=== PATIENT | female | born 1970 | race Caucasian/White ===

== ENCOUNTER 2023-01-20 06:30 | Outpatient (REF) | payer BC, SELFPAY ==
[2023-01-20 11:22] LABS: Appearance Urine Clear; Color Urine Yellow; Glucose Urine UA Negative (Negative); Leukocyte Esterase Urine Small (1+) (Negative); MANUAL DIFF FLAG NO; Nitrite Urine Negative (Negative); PH 7.5 (5.0-9.0); UMIC TRIGGER UA YES; Urine Blood Negative (Negative); Urine Ketones Negative (Negative); Urine Protein Negative (Neg-Trace)
[2023-01-20 11:34] LABS: Basophils Percent Auto 0.7 % (0-2); Eosinophils Absolute Auto 0.1 X10*3/uL (0.0-0.4); Eosinophils Percent Auto 2.5 % (0-4); Hematocrit 39.1 % (37.0-47.0); Hemoglobin 12.5 g/dl (12.0-16.0); Imm Gran Abs Auto 0.01 X10*3/uL (0.00-0.03); Imm Gran Pct Auto 0.2 % (0.0-0.4); Lymphocytes Absolute Auto 2.4 X10*3/uL (1.2-4.9); Lymphocytes Percent Auto 54.7 % (20-40); Mean Corpuscular Hemoglobin 28.9 pg (27.0-33.0); Mean Corpuscular Volume 90.3 fL (80.0-98.0); Mean Platelet Volume 10.1 fL (9.4-12.3); Monocytes Absolute Auto 0.4 X10*3/uL (0.1-1.2); Monocytes Percent Auto 8.1 % (2-11); Neutrophils Absolute Auto 1.5 x10*3/uL (2.0-8.3); Neutrophils Percent Auto 33.8 % (45-73); Platelet Count 268 X10*3/uL (160-400); Red Blood Count 4.33 X10*6/uL (4.20-5.50); Red Cell Distribution Width 12.7 % (11.0-16.0); White Blood Count 4.4 X10*3/uL (4.8-10.8)
[2023-01-20 11:36] LABS: Bacteria Urine 1+ (None Seen); Hyaline Casts Urine 0-2 /LPF (0-2); RBC Urine 0-2 /HPF (0-2); WBC Urine 0-5 /HPF (0-5)
[2023-01-20 12:07] LABS: Alanine Aminotransferase 19 U/L (0-31); Albumin Level 3.9 g/dL (3.5-5.0); Alkaline Phosphatase 81 U/L (39-117); Anion Gap 11 (12-20); Aspartate Amino Transferase 23 U/L (5-31); Bilirubin Total 0.5 mg/dL (0.0-1.0); Blood Urea Nitrogen 19 mg/dL (9-16); Calcium 9.2 mg/dL (8.4-10.2); Carbon Dioxide 27 mmol/L (22-29); Chloride 108 mmol/L (96-108); Cholesterol 191 mg/dL; Estimated Glomerular Filt Rate > 60; Glucose Random 94 mg/dL (60-115); HDL Cholesterol 61 mg/dL; LDL Cholesterol Calculated 118 mg/dl; Potassium 4.2 mmol/L (3.3-5.1); Sodium 142 mmol/L (135-145); Total Protein 5.9 g/dL (6.5-8.0); Triglycerides 61 mg/dL
[2023-01-20 12:39] LABS: Folate 14.2 ng/mL (> or = 4.0); Free T4 (Free Thyroxine) 0.99 ng/dL (0.71-1.85); Thyroid Stimulating Hormone 1.83 uIU/mL (0.32-4.0); Vitamin B12 453 pg/mL (200-900); Vitamin D 25-OH Total 34.3 ng/mL (>30)
== END 2023-01-20 06:31 | disposition home or self-care (01) ==
LOC: HO.HMGCLDS 06:30
PROVIDERS: PCP Internal Medicine; Visit Provider Internal Medicine
DX: E66.9 Obesity, unspecified (principal); E78.00 Pure hypercholesterolemia, unspecified; E55.9 Vitamin D deficiency, unspecified
CPT/HCPCS: 36415; 80053; 80061; 81001; 82306; 82607; 82746; 84439; 84443; 85025

== ENCOUNTER → 2023-02-10 08:01 | Outpatient (BNVA) | payer BC, SELFPAY | PROVIDERS: PCP Internal Medicine; Visit Provider Advanced Practice Midwife ==

== ENCOUNTER 2023-02-17 08:28 | Outpatient (REF) | payer BC, SELFPAY ==
--- NOTE | ~2023-02-17 | MM_ITS ---
EXAMINATION: MM SCREENING DIGITAL BREAST TOMOSYNTHESIS, BILATERAL CLINICAL INFORMATION: Screening. Asymptomatic. The lifetime risk of breast cancer based on the Tyrer-Cuzick Model is 16%. COMPARISON: Outside mammography: 08/13/2021, 07/24/2020, 07/19/2019 ([facility]). TECHNIQUE: Digital breast tomosynthesis is performed in both the craniocaudal and mediolateral oblique views along with computer-aided detection (CAD). Synthesized 2D images are generated from the tomosynthesis. FINDINGS: There are scattered areas of fibroglandular density (ACR BI-RADS breast composition Category b). Breast tissue composition borders on predominantly fatty. Background stromal markings are similar to outside studies. No developing density or architectural abnormality. There are no significant masses, abnormal calcifications, or other abnormalities. The axilla and skin contours are unremarkable. MM/MM tomosynthesis screening BI IMPRESSION: No mammographic evidence of malignancy. ASSESSMENT: BI-RADS 1: Negative RECOMMENDATION: Routine annual mammography screening. This patient's information was entered into a reminder system with a target due date for their next mammogram.
== END 2023-02-17 08:29 | disposition home or self-care (01) ==
LOC: HO.MAMMO 08:28
PROVIDERS: PCP Internal Medicine; Visit Provider Internal Medicine
DX: Z12.31 Encounter for screening mammogram for malignant neoplasm of breast (principal)
CPT/HCPCS: 77063; 77067

== ENCOUNTER 2023-08-18 13:26 | Outpatient (AMB) | payer BC, SELFPAY ==
[2023-08-18 13:35] VITALS: BMI 35.2
--- NOTE | 2023-08-18 13:35 | A.OFFVIS_ITS ---
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 Required: No Information Interpreted: non-clinical & clinical Control System Computer Scientist: Control System Computer Scientist Present (Aidyn) Allergies No Known Allergies Allergy (Verified 08/18/23 13:38) Medication List - Last Reconciled 08/18/23 by Ame Salgado CNM [collagen protein PO] estradiol 1 patch transdermal 2XW multivitamin 1 tab PO DAILY progesterone micronized 100 mg PO BEDTIME sod sulf-pot chloride-mag sulf 1.479-0.188- 0.225 gram (Sutab) PO PER PKG DIR Is last menstrual period known: No Post menopausal: Yes Patient : No HPI ?yeast infection HPI Details Patient is here to see if she might have a yeast infection she has had little bit more vaginal irritation and itching and discomfort and burning more on the inside of her vaginal introitus then externally by her description during the exam. She normally does not take medications but she was having symptoms that she researched for herself and in discussion with colleagues and professional friends thought that might be related to hannha menopausal changes in terms of inability to remember and concentrate and so she decided to research this online and went online to a site called [employer], and had online consultations with the nurse practitioner who prescribed her the estradiol patch and progesterone. She thought she was noticing an improvement. [facility] and she has been without it for 2 weeks and feels the symptoms have returned again. She feels like the vaginal symptoms started before she ran out of medication she does not normally get yeast infections. 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 She also feels like she has been urinating frequently and it is only small amounts. She is not having dysuria or per se.. In questioning it appears that there are long periods of time when she has to hold her urine and void in between long procedures at work and that that has become habitual.> On questioning it seems that she may have challenges with complete emptying of her bladder and that some of her symptoms may relate to this. [facility] Family History Mother Lung cancer Father Skin cancer CVA (cerebral vascular accident) Sister No problems noted. Sister No problems noted. Sister Mental health disorder Daughter No problems noted. 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 cervix nulliparous long thick closed uterus more midposition adnexa nontender quivery tone with 1st Kegel improved tone with 2nd. Vaginal mucosa slightly atrophic. External Female Exam: normal external appearance Speculum Exam - Vagina: normal appearance of the vagina and normal vaginal discharge Speculum Exam - Cervix: normal appearance of the cervix Bimanual exam- vagina & uterus: normal bimanual exam, uterine size normal, consistency normal, uterine mobility normal, uterine shape normal and non-tender Bimanual Exam- Adnexa, other: normal adnexae, no masses and No adnexal tenderness Assessment & Plan Assessment & Plan (1) Obesity: Code(s): E66.9 - Obesity, unspecified (2) Vaginal irritation: Code(s): N89.8 - Other specified noninflammatory disorders of vagina (3) Frequency of urination: Code(s): R35.0 - Frequency of micturition (4) Urinary retention with incomplete bladder emptying: Comment: Possible. not diagnosed. Discussed, and offered pelvic floor therapy. She patient decided to work on the Genero's herself for now. Will rule out UTI. Code(s): R33.9 - Retention of urine, unspecified (5) Postmenopausal HRT (hormone replacement therapy): Comment: Patient consulted online with an online prescribing source and has follow-up visits is online with them. Code(s): Z79.890 - Hormone replacement therapy Plan ---Discussed normal changes that happen premenapausally, perimenapausally, and postmenopausally, and ways to handle them. Discussed the normal variation, and the range of experiences that women experience. Discussed nutrition, health, need for exercise, both weight-bearing and aerobic. Also discussed the normal changes that happen with vaginal mucosal thinning and sensitivity, and simple more natural ways of handling these challenges. ------I Had the patient and demonstrate a Kegel contraction at the end of the exam, ordered in order to explain a Kegel exercise, and instructed the patient on doing the same exercises several times a day with increasing strength each time. One useful to is to imagine pursestring around the vagina and pulling it tight and upwards as if raising the vagina, or imagining that her tight muscles are on the 1st floor and she is trying to pull them up to the 5th floor and then slowly letting them go down. To try to do these several times a day but focus on the quality and the strength of the exercises more than the quantity, and tried isolate just those muscles and not involve other body parts. testing done for the usual gonorrhea chlamydia trichomoniasis Gardnerella and Eva. Today nothing is very apparent so I am deferring treatment until we get the test results. --------she declined referral to PT but I did give her a brochure if any issues with incomplete emptying of her bladder worsened over time she would need to discuss it with her primary care provider and a urology referral might ensue. She has intention to work on Kegel's as she really prefers any extreme interventions and medications if at all possible. In particular I recommend that she really work on trying to void with increased frequency while at work and try to make ensure that she is completely emptying her bladder at each time voiding with more frequency may help with that as well. discussed her decision to do her own research and make her best benefit risk decision about choosing to go on HRT that she obtained by online consultations. Reviewed that there are some risks but there are some benefits as well and she is going to make her own decision about when she restarts the medication when she receives it. --------discussed all the other many contributions that could be contributing to symptoms of challenges remembering very many items and a busy work a day world with many inputs. Orders: Orders Urine Culture Today R35.0 - Frequency of micturition Bacterial Vaginosis Panel Today N89.8 - Other specified noninflammatory disorders of vagina CT NG by PCR Today N89.8 - Other specified noninflammatory disorders of vagina Coding Level of Care Code Est Pt Level 3 (16457) Diagnoses Obesity E66.9 Vaginal irritation N89.8 Frequency of urination R35.0 Urinary retention with incomplete bladder emptying R33.9 Postmenopausal HRT (hormone replacement therapy) Z79.890
== END 2023-08-18 14:30 | disposition home or self-care (01) ==
PROVIDERS: PCP Internal Medicine; Visit Provider Advanced Practice Midwife
DX: E66.9 Obesity, unspecified (principal); N89.8 Other specified noninflammatory disorders of vagina; R35.0 Frequency of micturition; R33.9 Retention of urine, unspecified; Z79.890 Hormone replacement therapy
CPT/HCPCS: 99213

== ENCOUNTER 2023-08-18 13:26 | Outpatient (REF) | payer BC, SELFPAY ==
[2023-08-18 18:44] LABS: CT PCR NOT DETECTED (Not Detect.); NG PCR NOT DETECTED (Not Detect.)
[2023-08-20 11:34] LABS: BV Int Neg Control Negative (Negative); BV Int Pos Control Positive (Positive)
== END 2023-08-18 13:27 | disposition home or self-care (01) ==
LOC: HO.LNP 13:26
PROVIDERS: PCP Internal Medicine; Visit Provider Advanced Practice Midwife
DX: N89.8 Other specified noninflammatory disorders of vagina (principal); R35.0 Frequency of micturition; E66.9 Obesity, unspecified; Z79.899 Other long term (current) drug therapy
CPT/HCPCS: 0353U; 87086; 87480; 87510; 87660

== ENCOUNTER 2023-08-25 08:21 | Outpatient (AMB) | payer BC, SELFPAY ==
[2023-08-25 08:33] VITALS: BP 128/70; PULSE 61; O2SAT 99; BMI 33.7
--- NOTE | 2023-08-25 08:33 | MHC.PC.OV ---
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 Last seen in February 2023 for physical exam. Patient's mammograms up-to-date. Review of the notes has seen gynecology for frequency as well as postmenopausal symptoms, Kegel exercises taught and discussion about hormone treatments. Patient also has met with Gastroenterology and will be scheduled for the workup. Has been doing fine patient has ran out of the hormones and not sure how to get them back. Discussed with the patient to talk to gynecology. Discussed with her about small risks of hormones regarding strokes blood clots and heart attacks. Otherwise has scheduled colon test for next year will request for blood work for physical next year. [facility] Medical History (Updated 08/25/23 @ 09:03 by Geo Bain MD) Cervical cancer screening Breast cancer screening Family History Mother Lung cancer Father Skin cancer CVA (cerebral vascular accident) Sister No problems noted. Sister No problems noted. Sister Mental health disorder Daughter No problems noted. 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 Lance Pittman, Celeste Duckworth, Nikko Joyner and colleagues, with an educational daniella from [employer]. Physical exam (Primary Care) Vital Signs: Last Vital Signs Pulse 61 08/25/23 08:33 BP 128/70 08/25/23 08:33 Pulse Ox 99 08/25/23 08:33 Oxygen Delivery Method Room Air 08/25/23 08:33 BMI result Body Mass Index 33.7 Tobacco/Smoking Status: Tobacco use Status Tobacco use date assessed 12/30/22 08/25/23 08:34 Patient Tobacco Use Status Never used Tobacco 08/25/23 08:34 e-Cigarette/Vaping Use Never Used 08/25/23 08:34 Thrive Assessment: Date of Thrive Assessment Date Thrive assessed 12/30/22 08/25/23 08:34 Const General: alert; No acute distress Eyes Conjunctivae: conjunctivae normal Resp Auscultation: clear to auscultation bilaterally Cardio Rate: regular rate Rhythm: regular rhythm GI Inspection: Yes normal to inspection Extrem General: Yes normal to inspection and No edema Assessment and Plan Assessment & Plan (1) Frequency of urination: Code(s): R35.0 - Frequency of micturition Plan: Discussion with the gynecology regarding Kegel exercises (2) Postmenopausal HRT (hormone replacement therapy): Comment: Patient consulted online with an online prescribing source and has follow-up visits is online with them. Code(s): Z79.890 - Hormone replacement therapy Plan: Patient has met with the gynecology for discussion regarding hormone treatments (3) Obesity: Code(s): E66.9 - Obesity, unspecified Plan: Continue with diet and exercise (4) Colon cancer screening: Code(s): Z12.11 - Encounter for screening for malignant neoplasm of colon Plan: Patient has met with gastroenterology and has a schedule next year Orders: Orders Thyroid Stimulating Hormone 6 Months E66.9 - Obesity, unspecified Lipid Panel 6 Months E66.9 - Obesity, unspecified, E78.00 - Pure hypercholesterolemia, unspecified Vitamin D 25-OH Total 6 Months E66.9 - Obesity, unspecified Complete Blood Count Auto Diff 6 Months E66.9 - Obesity, unspecified Comprehensive Met. Panel 6 Months E66.9 - Obesity, unspecified Free T4 (Free Thyroxine) 6 Months E66.9 - Obesity, unspecified Vitamin B12 and Folate 6 Months E66.9 - Obesity, unspecified Coding Level of Care Code Est Pt Level 4 (34127) Diagnoses Frequency of urination R35.0 Postmenopausal HRT (hormone replacement therapy) Z79.890 Obesity E66.9 Colon cancer screening Z12.11
== END 2023-08-25 09:49 | disposition home or self-care (01) ==
PROVIDERS: PCP Internal Medicine; Visit Provider Internal Medicine
DX: R35.0 Frequency of micturition (principal); E66.9 Obesity, unspecified; Z68.33 Body mass index [BMI] 33.0-33.9, adult; Z23 Encounter for immunization; Z79.890 Hormone replacement therapy
CPT/HCPCS: 90471; 90686; 99214

== ENCOUNTER 2023-11-10 07:53 | Day surgery (SDC) | payer BC, SELFPAY ==
--- NOTE | 2023-11-09 11:58 | HO.ANESPROP2 ---
Documented by User: Edda Schrader NP 11/09/23 11:58 HPI - Anesthesia Eval Consult details Narrative: 53yo F for Colonoscopy PMFSH Active Problems Active Problems: All Active Problems (Updated 08/25/23 @ 09:03 by Geo Bain MD) Postmenopausal HRT (hormone replacement therapy) (Acute) Urinary retention with incomplete bladder emptying (Acute) Frequency of urination (Acute) Vaginal irritation (Acute) Family history of polyps in the colon (Acute) Pre-op examination (Acute) ADHD (Acute) Annual physical exam (Acute) Colon cancer screening (Acute) Obesity (Acute) Past Medical History Medical History (Updated 08/25/23 @ 09:03 by Geo Bain MD) Cervical cancer screening Breast cancer screening Family History Family History Mother Lung cancer Father Skin cancer CVA (cerebral vascular accident) Sister No problems noted. Sister No problems noted. Sister Mental health disorder Daughter No problems noted. Maternal Aunt Breast cancer Paternal Aunt Breast cancer Surgical History Surgical History (Updated 11/10/23 @ 09:41 by Zoe Rivers RN) Hx of colonoscopy Social History Social History Household Members: Spouse Housing: House Alcohol intake: current Alcohol intake frequency: holidays/special occasions only Patient Tobacco Use Status: Never used Tobacco e-Cigarette/Vaping Use: Never Used Second Hand Smoke Exposure: No Use of substances other than those prescribed or required for medical reasons: No Are you DNR?: No Advance Directives: No Advance Directives Information Provided: Yes Current occupational status: employed 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 Sexual orientation: Straight/Heterosexual Gender identity: Female Cognitive needs: No Hearing needs: No Vision needs: Yes Meds Allergies Allergy/AdvReac Type Severity Reaction Status Date / Time No Known Allergies Allergy Verified 11/10/23 09:37 Home Medications Medication Instructions Recorded Confirmed Last Taken Type collagen protein PO 12/30/22 08/18/23 Unknown History multivitamin 1 tab PO DAILY 12/30/22 11/10/23 Unknown History estradiol 0.0375 mg/24 hr 1 patch transdermal 2XW 11/10/23 11/10/23 Unknown History semiweekly transdermal patch progesterone micronized 100 mg 100 mg PO BEDTIME 11/10/23 11/10/23 Unknown History capsule Assessment and Plan Assessment Anesthesia Assessment: Chart Reviewed Documented by User: Akila Nguyễn MD 11/10/23 09:45 [facility] Past Medical History Medical History (Updated 08/25/23 @ 09:03 by Geo Bain MD) Cervical cancer screening Breast cancer screening Family History Family History Mother Lung cancer Father Skin cancer CVA (cerebral vascular accident) Sister No problems noted. Sister No problems noted. Sister Mental health disorder Daughter No problems noted. Maternal Aunt Breast cancer Paternal Aunt Breast cancer Family history of problems with anesthesia: No Surgical History Surgical History (Updated 11/10/23 @ 09:41 by Zoe Rivers RN) Hx of colonoscopy History of Problems with Anesthesia: No Social History Social History Household Members: Spouse Housing: House Alcohol intake: current Alcohol intake frequency: holidays/special occasions only Patient Tobacco Use Status: Never used Tobacco e-Cigarette/Vaping Use: Never Used Second Hand Smoke Exposure: No Use of substances other than those prescribed or required for medical reasons: No Are you DNR?: No Advance Directives: No Advance Directives Information Provided: Yes Current occupational status: employed 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 Sexual orientation: Straight/Heterosexual Gender identity: Female Cognitive needs: No Hearing needs: No Vision needs: Yes Meds Allergies Allergy/AdvReac Type Severity Reaction Status Date / Time No Known Allergies Allergy Verified 11/10/23 09:37 Home Medications Medication Instructions Recorded Confirmed Last Taken Type collagen protein PO 12/30/22 08/18/23 Unknown History multivitamin 1 tab PO DAILY 12/30/22 11/10/23 Unknown History estradiol 0.0375 mg/24 hr 1 patch transdermal 2XW 11/10/23 11/10/23 Unknown History semiweekly transdermal patch progesterone micronized 100 mg 100 mg PO BEDTIME 11/10/23 11/10/23 Unknown History capsule Exam Airway Mallampati Class: II (cap top left) TM Dist: >3cm Neck ROM: Full Heart: rrr Lungs: cta Assessment and Plan Assessment Anesthesia Assessment: Anesthesia Plan Discussed Final Anesthetic Review Family History of Problems with Anesthesia: No History of Problems with Anesthesia: No NPO: Yes ASA Class: II Final Preanesthetic Review: No Changes in Pt Med Stat, Meds/Allgs Chart Reviewed and Consent Obtained/Reviewed Patient Risk: Intermediate Procedure Risk: Intermediate Anesthetic Plan Anesthetic Plan: MAC: Disposition: Standard PACU
--- NOTE | 2023-11-10 08:41 | P.OP_ITS ---
Operative Note Operative Note Date of Service: 11/10/23 Narrative: COLONOSCOPY TILL CECUM WITH BIOPSIES Pre-op diagnosis: Colon cancer screening, family history of colon polyps. Post-op diagnosis:? Colon polyp, diverticulosis, hemorrhoids Endoscopist:? Ira Calhoun MD Anesthesia:?MAC Consent: Indications for the procedure and potential complications of bleeding, perforation, reaction to medications and missed diagnosis were discussed with the patient and informed consent was obtained. Instrument: Olympus PCF H 190 L variable stiffness pediatric colonoscope Monitoring: Vital signs and clinical assessment, intermittent blood pressure monitoring, continuous EKG monitoring, Pulse oximetry and Carbon Dioxide monitoring were done throughout the procedure. Please see anesthesia flowsheet. Colon withdrawl time was 18 minutes. Procedure: The patient was placed in the left lateral decubitis position and pre-procedure medications were administered. After a digital rectal examination of the ano-rectum, the video colonoscope was inserted into the rectum and advanced through the colon to the cecum. The colonoscope was slowly withdrawn in a retrograde panoramic fashion and the colon mucosa was carefully examined including a retroflexed view of the rectum. Findings and interventions are described below. Procedure Difficulty: Without difficulty Findings: Terminal Ileum: Not evaluated Cecum: Normal Ascending Colon: A 2-3 mm sessile polyp in the proximal AC - removed with a cold biopsy Transverse Colon: Normal Descending Colon: Normal Sigmoid Colon: Moderate diverticulosis Rectum: Normal Ano-rectum: Moderate internal hemorrhoids Colon preparation: Excellent after some irrigation [place] Bowel Preparation Scale Right colon; 3 Transverse colon: 3 Left colon; 3 (0 = Unprepared colon segment with mucosa not seen due to solid stool that cannot be cleared. 1 = Portion of mucosa of the colon segment seen, but other areas of the colon segment not well seen due to staining, residual stool and/or opaque liquid. 2 = Minor amount of residual staining, small fragments of stool and/or opaque liquid, but mucosa of colon segment seen well. 3 = Entire mucosa of colon segment seen well with no residual staining, small fragments of stool or opaque liquid) Impression and Post Procedure Diagnosis: Colonoscopy Findings: One tiny polyp removed Moderate diverticulosis seen in the sigmoid colon Moderate hemorrhoids on retroflexed exam. Plan: I will send a letter with pathology results. Pt has a FU appointment on 11/24/23 with Joslyn Winn NP Repeat Colonoscopy interval based on path results - in 5 years if polyps are adenomatous and due to family hx of colon polyps (Mom and a sister in their 50's). Above findings were reviewed with the patient and colon polyps and diverticulosis handouts were given in the discharge area.
--- NOTE | 2023-11-10 08:41 | MHC.SHP ---
Pre-Procedural Eval Section A - 24 Hr Update-Section A only Date of Service: 11/10/23 The patient is an INPATIENT: No The patient has been examined within 24 hours of the surgical procedure. The History & Physical has been completed within 30 days and I have reviewed it.: No Section B - Complete if H&P > 30 days Chief Complaint: Family history of colon polyps Relevant Family History (Specify if Yes): Yes Relevant Social History: None Present Medications: see Short Stay Collaborative assessment Medical History: Significant History (ADHD) History of Previous Operations: Relevant previous surgery/procedure and date(s) (Hx of colonoscopy) Allergies: Allergies Allergy/AdvReac Type Severity Reaction Status Date / Time No Known Allergies Allergy Verified 08/25/23 08:34 Review of Systems Sugical H&P ROS: Negative: Constitution, Cardiovascular, Respiratory and Gastrointestinal Exam Surgical H&P Exam: Normal: Heart, Normal: Lungs, Normal: Extremities and Normal: Abdomen Plan Diagnosis/Plan: Unchanged I have reviewed the history and physical and performed a pertinent physical examination on my patient. No changes have occurred unless specified. Time Spent With Patient Time: Total time managing care of this patient today ____ minutes.
[2023-11-10 09:14] VITALS: BMI 33.9
[2023-11-10 09:15] VITALS: BP 131/66; PULSE 62; RESP 16; TEMP 37; O2SAT 100
[2023-11-10] MEDS: Lactated Ringers 1,000 ML 100 ML IVCONT (09:32)
[2023-11-10 10:24] VITALS: BP 99/56; PULSE 80; RESP 16; TEMP 36.1; O2SAT 99
[2023-11-10 10:39] VITALS: BP 108/64; PULSE 72; RESP 16; TEMP 36.1; O2SAT 100
== END 2023-11-10 10:55 | disposition home or self-care (01) ==
PROVIDERS: PCP Internal Medicine; Visit Provider Internal Medicine Gastroenterology
PROC: 0DJD8ZZ Inspection of Lower Intestinal Tract, Via Natural or Artificial Opening Endoscopic (ICD-10-PCS; CPT 45378; principal; 2023-11-10 09:30)
DX: Z12.11 Encounter for screening for malignant neoplasm of colon (principal); D12.2 Benign neoplasm of ascending colon; K57.30 Diverticulosis of large intestine without perforation or abscess without bleeding; K64.0 First degree hemorrhoids; Z83.719 Family history of colon polyps, unspecified
CPT/HCPCS: 45380; 88305; J2704

== ENCOUNTER → 2023-11-10 07:53 | Outpatient (BNV) | payer BC, SELFPAY | PROVIDERS: PCP Internal Medicine; Visit Provider Internal Medicine Gastroenterology | DX: Z12.11 Encounter for screening for malignant neoplasm of colon (principal); Z83.719 Family history of colon polyps, unspecified; K63.5 Polyp of colon; K57.30 Diverticulosis of large intestine without perforation or abscess without bleeding | CPT/HCPCS: 45380 ==

== ENCOUNTER 2023-11-24 08:34 | Outpatient (AMB) | payer BC, SELFPAY ==
--- NOTE | 2023-11-24 08:34 | A.OFFVIS_ITS ---
Intake Vital Signs 11/24/23 08:39 Height 5 ft 6 in Weight 212 lb 1.355 oz BMI 34.2 BP 127/64 Blood Pressure Location Rt brachial Position Sitting Pulse 75 Intake Visit Reasons: s/P [place]; Dr. Calhoun Intake Note: Patient in office follow up s/p Colonoscopy. CC: Patient underwent colonoscopy on 11/10/[address] Calhoun. Patient continues to have constipation but she states that she's always had this problem. Wearing Apparel Shaker Required: No Accompanied by: Self / Same As Patient Allergies No Known Allergies Allergy (Verified 11/24/23 08:50) HPI s/P [place]; Dr. Calhoun HPI Details Assessment & Plan (1) Pre-op examination: Code(s): Z01.818 - Encounter for other preprocedural examination Plan: This will be her second colonoscopy, she had one at age 44 at [facility] and she was to have a 5 year repeat. Her mother has colon polyps. She suffers CIC but does not want to take medicines, she has a smoothy every am with zofia and flax seeds, veggies and fruit but only moves her bowels about twice a week. She exercises regularly working out on the treadmill every am. She is unsure if she feel bloated, but she also has gained 30 lbs in the past year of so. There are no prior problems with anesthesia or sedation. She denies any cardiac or respiratory problems. No ID problems. Her mother had colon polyps and one sister. (2) Family history of polyps in the colo n: Code(s): Z83.71 - Family history of colonic polyps Medications: New sod sulf-pot chlor rita-mag sulf 1.479 -0.188- 0.225 gram (Sutab) PO PER PKG DIR 24 tabs 0RF COLONOSCOPY 11/10/23 Findings: Terminal Ileum: Not evaluated Cecum: Normal Ascending Colon: A 2-3 mm sessile polyp in the proximal AC - removed with a cold biopsy Transverse Colon: Normal Descending Colon: Normal Sigmoid Colon: Moderate diverticulosis Rectum: Normal Ano-rectum: Moderate internal hemorrhoids Impression and Post Procedure Diagnosis: Colonoscopy Findings: One tiny polyp removed Moderate diverticulosis seen in the sigmoid colon Moderate hemorrhoids on retroflexed exam. Plan: I will send a letter with pathology results. Pt has a FU appointment on 11/24/23 with Joslyn Winn NP Repeat Colonoscopy interval based on path results - in 5 years if polyps are adenomatous and due to family hx of colon polyps (Mom and a sister in their 50's). BIOPSY Received: 11/10/23 Diagnosis Colon, ascending, polypectomy: Sessile serrated lesion/polyp; negative for cytologic dysplasia; multiple additional levels examined. CORRESPONDENCE On 11/08/23 @ 12:34 Carmel De Jseus Wrote To Joslyn Winn Just DORINDA, after reviewing sutab and hearing about this prep , she would like an alternative- peg/ dulcolax ordered and reviewed. TODAY'S VISIT She is agreeble to a 5 year recall. The procedure was well tolerated. The results were explained and the patient is agreeable to the follow-up interval as stated. The bowel pattern has returned to normal. Education was provided to tell any 1st degree relatives about their findings to be sure that they are screened by age 45. Educated that they will be put on a recall list when it is time for their repeat scope but should they move out of state or away from the hospital they will need to remember along with their primary to repeat the procedure in a timely fashion to avoid any adverse complications. [facility] Medical History Cervical cancer screening Breast cancer screening Surgical History Hx of colonoscopy Family History Mother Lung cancer Father Skin cancer CVA (cerebral vascular accident) Sister No problems noted. Sister No problems noted. Sister Mental health disorder Daughter No problems noted. 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 Sexual orientation: Straight/Heterosexual Gender identity: Female Cognitive needs: No Hearing needs: No Vision needs: Yes Female Reproductive History Menstrual Age of Menarche: 12 Review of Systems Const Denies fatigue, Denies fever(s), Denies night sweats, Denies poor appetite and Denies weight loss ENT Reports Normal hearing present, Denies dental pain, Denies dysphagia, Denies hearing loss, Denies mouth pain, Denies odynophagia, Denies throat swelling, Denies tongue swelling and Reports other (Dentition adequate) Card Reports no additional complaints Resp Reports no additional complaints GI Details: Denies abdominal pain, Denies melena, Denies bloating, Denies hematochezia, Denies constipation, Denies GI cramping, Denies dysphagia, Denies excessive flatus, Denies early satiety, Denies heartburn, Denies diarrhea, Denies nausea, Denies odynophagia, Denies vomiting and Denies hematemesis Skin/Breast Denies pruritus, Denies lesions, Denies rash and Denies jaundice Neuro Reports Normal hearing present and Denies Abnormal speech present Endo Denies fatigue Aller/Immun Denies throat swelling and Denies tongue swelling Physical Exam Vital Signs: Last Vital Signs Pulse 75 11/24/23 08:39 BP 127/64 11/24/23 08:39 BMI result Body Mass Index 34.2 Const General: cooperative, no acute distress, well developed and well groomed Nutritional Appearance: well nourished and obese Orientation/consciousness: oriented to person, oriented to place and oriented to time Limitations: No language barrier HEENT Head: Yes normocephalic and Yes atraumatic Eyes General: appearance normal, both eyes and all related structures Pupils: Equal, round and reactive pupils present Neck Neck: Yes normal visual inspection and Yes no lymphadenopathy Thyroid: Thyroid normal Resp Effort & Inspection: normal respiratory effort and able to speak in complete sen tences Auscultation: clear to auscultation bilaterally Cardio Rate: regular rate Rhythm: regular rhythm Heart sounds: Normal, physiologic split S2 sound present Peripheral pulses: radial pulses present and posterior tibial pulses present GI Inspection: No distended, No Abdominal panniculus present and Yes obesity Palpation (GI): Soft to palpation, nontender, no guarding, not rigid and No hepatosplenomegaly present Percussion: Yes normal to percussion Auscultation: normal bowel sounds Rectal Exam - Female: deferred Skin General skin exam: no rashes or lesions noted, turgor normal, skin not dry, no jaundice, No spider nevi and no striae Rashes: no rashes Nails: normal Neuro General: oriented to person, oriented to place and oriented to time Cranial nerves: Yes Equal, round and reactive pupils present and Yes Normal hearing present Speech: No Abnormal speech present Extrem General: Yes normal to inspection, No clubbing, No cyanosis and No edema Psych Appearance: grossly normal and well kempt Mental Status: mental status grossly normal Speech and movement: Normal speech and movement present Affect: normal affect Attitude: cooperative Thought process: Normal thought process present and not confabulating Thought content: Normal thought content present Insight: Fair insight present (Psych) Judgement: Fair judgement present (Psych) Assessment & Plan Assessment & Plan (1) Sessile serrated polyp of colon: Comment: 11/2023 SCOPE REPEAT 5 YEARS Code(s): D12.6 - Benign neoplasm of colon, unspecified Plan She is agreeble to a 5 year recall. The procedure was well tolerated. The results were explained and the patient is agreeable to the follow-up interval as stated. The bowel pattern has returned to normal. Education was provided to tell any 1st degree relatives about their findings to be sure that they are screened by age 45. Educated that they will be put on a recall list when it is time for their repeat scope but should they move out of state or away from the hospital they will need to remember along with their primary to repeat the procedure in a timely fashion to avoid any adverse complications. Coding Level of Care Code Est Pt Level 3 (08033) Diagnoses Sessile serrated polyp of colon D12.6
[2023-11-24 08:39] VITALS: BP 127/64; PULSE 75; BMI 34.2
== END 2023-11-24 09:15 | disposition home or self-care (01) ==
PROVIDERS: PCP Internal Medicine; Visit Provider Nurse Practitioner
DX: D12.6 Benign neoplasm of colon, unspecified (principal)
CPT/HCPCS: 99213

== ENCOUNTER → 2023-11-24 08:34 | Outpatient (BNVA) | payer BC, SELFPAY | PROVIDERS: PCP Internal Medicine; Visit Provider Nurse Practitioner ==

== ENCOUNTER 2023-12-11 10:12 | Outpatient (AMB) | payer BC, SELFPAY ==
[2023-12-11 10:14] VITALS: BP 126/68; PULSE 74; O2SAT 97; BMI 34.2
--- NOTE | 2023-12-11 10:14 | MHC.PC.OV ---
Vital Signs 12/11/23 10:14 Height 5 ft 6 in Weight 212 lb 0.4 oz BMI 34.2 BP 126/68 Blood Pressure Location Lt brachial Position Sitting Pulse 74 Pulse Source Pulse Oximeter Pulse Oximetry (%) 97 Oxygen Delivery Method Room Air Intake Visit Reasons: Shoulder Pain Intake Note: pt states shoulder and neck pain for several weeks with no relief. Patient Care Associate Required: No Allergies No Known Allergies Allergy (Verified 12/11/23 10:14) Tobacco use date assessed: 12/11/23 Dental Screening Dental Screen Date: 08/25/23 HPI Shoulder Pain HPI Details 53-year-old obese female with a history of frequency coming in for an acute problem. August 2023 last seen. colonoscopy done November 2023. Repeat in 5 years. 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 Sister No problems noted. Sister Mental health disorder Daughter No problems noted. 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 How often do you have a drink containing alcohol?: Monthly or less 2. How many drinks containing alcohol do you have on a typical day when you are drinking?: 1 or 2 3. How often do you have six or more drinks on one occasion?: Never Total Score: 1 JEANETTE-7 AMB Questionnaire JEANETTE-7 Date JEANETTE - 7 assessed: 12/11/23 Source: Developed by Drs. Lance Pittman, Celeste Duckworth, Nikko Joyner and colleagues, with an educational daniella from [employer]. Physical exam (Primary Care) Vital Signs: Last Vital Signs Pulse 74 12/11/23 10:14 BP 126/68 12/11/23 10:14 Pulse Ox 97 12/11/23 10:14 Oxygen Delivery Method Room Air 12/11/23 10:14 BMI result Body Mass Index 34.2 Tobacco/Smoking Status: Tobacco use Status Tobacco use date assessed 12/11/23 12/11/23 10:18 Patient Tobacco Use Status Never used Tobacco 12/11/23 10:18 e-Cigarette/Vaping Use Never Used 12/11/23 10:18 Thrive Assessment: Date of Thrive Assessment Date Thrive assessed 12/30/22 12/11/23 10:18 Const General: alert; No acute distress Eyes Conjunctivae: conjunctivae normal Resp Auscultation: clear to auscultation bilaterally Cardio Rate: regular rate Rhythm: regular rhythm GI Inspection: Yes normal to inspection Extrem Other: Elevation of left arm to 90 degrees causes pain and anterior shoulder area. No swelling no redness and also pain on the trapezius left side on turning the head to the right General: No edema Assessment and Plan Assessment & Plan (1) Shoulder pain, left: Code(s): M25.512 - Pain in left shoulder Orders: Orders PT Evaluation and Treatment Today M25.512 - Pain in left shoulder Referrals Orthopedics Referral M25.512 - Pain in left shoulder Medications: New cyclobenzaprine 5 mg PO TID PRN 20 tabs 0RF muscle spasm M25.512 - Pain in left shoulder Coding Level of Care Code Est Pt Level 3 (70165) Diagnoses Shoulder pain, left M25.512
== END 2023-12-11 11:35 | disposition home or self-care (01) ==
PROVIDERS: PCP Internal Medicine; Visit Provider Internal Medicine
DX: M25.512 Pain in left shoulder (principal)
CPT/HCPCS: 99213

== ENCOUNTER 2023-12-15 08:11 | Outpatient (AMB) | payer BC, SELFPAY ==
--- NOTE | 2023-12-15 08:35 | A.OFFVIS_ITS ---
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 Patient reports pain, run shoulder to elbow and feel neck sore and feel hand week. She was seen by her PCP who referred her to PT and orthopedics. 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 She states she has intermittent pain, numbness and tingling in her shoulder which radiates down to her elbow. Her pain is aggravated with getting dressed, overhead reaching, lifting, and repetitive motions. She also c/o soreness in neck and weakness in her left hand. She was seen by her PCP who referred her to our office and physical therapy. She takes Aleve for her pain as needed. [facility] Medical History Cervical cancer screening Breast cancer screening Surgical History Hx of colonoscopy Family History Mother Lung cancer Father Skin cancer CVA (cerebral vascular accident) Sister No problems noted. Sister No problems noted. Sister Mental health disorder Daughter No problems noted. 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 Sexual orientation: Straight/Heterosexual Gender identity: Female Cognitive needs: No Hearing needs: No Vision needs: Yes Female Reproductive History Menstrual Age of Menarche: 12 Review of Systems Const All systems reviewed & are unremarkable except as noted in HPI and below Physical Exam Vital Signs: BMI result Body Mass Index 34.2 Const General: cooperative, healthy appearing, comfortable, no acute distress, well developed and alert Orientation/consciousness: patient oriented x3 HEENT Head: Yes normal to inspection, Yes normocephalic and Yes atraumatic Eyes General: appearance normal, both eyes and all related structures Resp Effort & Inspection: normal respiratory effort and able to speak in complete sentences Cardio Rate: regular rate Peripheral pulses: Peripheral pulses 2+ throughout GI Palpation (GI): Soft to palpation Skin Lesions: no lesions Rashes: no rashes Neuro General: patient oriented x3 Extrem Other: Left shoulder normal to inspection. Tenderness over the bicipital groove and along the deltoid region of the shoulder. Forward flexion to 175, external rotation to 90, internal rotation to S1. 5/5 RTC strength. Positive Gillespie and Negative cross body abduction. NVI. Results Reviewed Results Reviewed: Xrays were obtained in the office today and personally reviewed by me of the left shoulder show type 2 acromion Assessment & Plan Assessment & Plan (1) Rotator cuff arthropathy of left shoulder: Code(s): M12.812 - Other specific arthropathies, not elsewhere classified, left shoulder Plan We discussed options which include PT, NSAIDs and injections. The patient will defer on the injection today and proceed with PT and NSAIDs. If symptoms persist, the patient will contact me for an injection, otherwise, PRN. A rx for aleve was sent to the pharmacy. Orders: Orders PT Evaluation and Treatment Today M12.812 - Other specific arthropathies, not elsewhere classified, left shoulder XR shoulder LT min 2V Today M25.512 - Pain in left shoulder Medications: New naproxen 500 mg PO BID 60 tabs 3RF 30 days S93.409A - Sprain of unspecified ligament of unspecified ankle, initial encounter Patient Instructions: Scribed for Ta-Lisandra Freeman PA-C, by Chauncey Desir, medical fee clerk, on 12/15/2023 at 8:15 AM João FRANCISCO PA-C, have personally reviewed and agree with the information entered by the scribe. Coding Level of Care Code New Pt Level 3 (54833) Diagnoses Rotator cuff arthropathy of left shoulder M12.812
[2023-12-15 08:36] VITALS: BMI 34.2
== END 2023-12-15 09:20 | disposition home or self-care (01) ==
PROVIDERS: PCP Internal Medicine; Visit Provider Physician Assistant
DX: M12.812 Other specific arthropathies, not elsewhere classified, left shoulder (principal)
CPT/HCPCS: 99203

== ENCOUNTER 2023-12-15 09:50 | Outpatient (REF) | payer BC, SELFPAY ==
--- NOTE | ~2023-12-15 | XR_ITS ---
EXAMINATION: XR SHOULDER, LEFT CLINICAL INFORMATION: Left shoulder pain COMPARISON: None available. TECHNIQUE: Three views of the left shoulder. FINDINGS: No fracture or malalignment. No significant degenerative findings. No suspicious bone lesion or soft tissue calcification. XR/XR shoulder LT min 2V IMPRESSION: Normal left shoulder.
== END 2023-12-15 09:51 | disposition home or self-care (01) ==
LOC: HO.HOSX 09:50
PROVIDERS: Visit Provider Physician Assistant
DX: M12.812 Other specific arthropathies, not elsewhere classified, left shoulder (principal)
CPT/HCPCS: 73030

== ENCOUNTER 2024-03-15 07:24 | Outpatient (REF) | payer BC, SELFPAY | END 2024-03-15 07:25 | disposition home or self-care (01) | LOC: HO.MAMMO 07:24 | PROVIDERS: PCP Internal Medicine; Visit Provider Internal Medicine | DX: Z12.31 Encounter for screening mammogram for malignant neoplasm of breast (principal) | CPT/HCPCS: 77063; 77067 ==

== ENCOUNTER → 2024-03-15 07:45 | Outpatient (BNV) | payer BC, SELFPAY | PROVIDERS: PCP Internal Medicine; Visit Provider Radiology Diagnostic Radiology | DX: Z12.31 Encounter for screening mammogram for malignant neoplasm of breast (principal) | CPT/HCPCS: 77063; 77067 ==

== ENCOUNTER → 2024-04-24 13:36 | Outpatient (AMB) | payer BC, SELFPAY ==
[2024-04-24 13:47] VITALS: BP 124/66; PULSE 78; O2SAT 99; BMI 31.3
--- NOTE | 2024-04-24 13:47 | MHC.PC.OV ---
Vital Signs 04/24/24 13:47 Height 5 ft 6 in Weight 194 lb BMI 31.3 BP 124/66 Blood Pressure Location Lt brachial Position Sitting Pulse 78 Pulse Source Pulse Oximeter Pulse Oximetry (%) 99 Oxygen Delivery Method Room Air Intake Visit Reasons: pe Allergies No Known Allergies Allergy (Verified 04/24/24 13:48) Medication List - Last Reconciled 04/24/24 by Geo Bain MD [collagen protein PO] estradiol 1 patch transdermal 2XW [id number] 1000-130(40-80) mg caps PO magnesium 250 mg PO DAILY multivitamin 1 tab PO DAILY naproxen 500 mg PO BID progesterone micronized 100 mg PO BEDTIME Tobacco use date assessed: 12/11/23 Dental Screening Dental Screen Date: 04/24/24 Did you have a dental visit in the last 12 months?: Yes Did you have a dental problem in the last 6 months where you did not have access to dental care?: No Was dental information given to patient?: Patient has dentist HPI pe HPI Details 53-year-old obese female with a history of ADHD urinary retention coming in for physical exam. Patient's last colon test was 11/2023 and mammograms up-to-date. Patient had some left shoulder pain and was sent for physical therapy has seen Orthopedics December diagnosis of rotator cuff arthropathy. X-ray was negative. Colonoscopy done in November showing a sessile serrated polyp of the colon and advised repeat in 5 years. occ dizzy PFSH Medical History (Updated 04/24/24 @ 14:12 by Geo Bain MD) Shoulder pain, left Family history of polyps in the colon Pre-op examination Colon cancer screening Cervical cancer screening Breast cancer screening Surgical History Hx of colonoscopy Family History Mother Lung cancer Father Skin cancer CVA (cerebral vascular accident) Sister No problems noted. Sister No problems noted. Sister Mental health disorder Daughter No problems noted. 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 1. Little interest or pleasure in doing things: not at all 2. Feeling down, depressed, or hopeless: not at all 3. Trouble falling or staying asleep, or sleeping too much: not at all 4. Feeling tired or having little energy: not at all 5. Poor appetite or overeating: not at all 6. Feeling bad about yourself - or that you are a failure or have let yourself or your family down: not at all 7. Trouble concentrating on things, such as reading the newspaper or watching television: not at all 8. Moving or speaking so slowly that other people could have noticed. Or the opposite - being so fidgety or restless that you have been moving around a lot more than usual: not at all 9. Thoughts that you would be better off or of hurting yourself in some way: not at all Total score: 0 Depression Screening Interpretation: Negative Depression Screening Done: Yes Source: Developed by Drs. Lance Pittman, Celeste Duckworth, Nikko Joyner and colleagues, with an educational daniella from [employer]. Thrive Questionnaire Date Thrive assessed: 04/24/24 I am a: Patient What is your living situation today?: I have a steady place to live THRIVE Score: 0 AUDIT C Alcohol Use Questionnaire (AUDIT-C) 1. How often do you have a drink containing alcohol?: Monthly or less 2. How many drinks containing alcohol do you have on a typical day when you are drinking?: 1 or 2 3. How often do you have six or more drinks on one occasion?: Never Total Score: 1 JEANETTE-7 AMB Questionnaire JEANETTE-7 Date JEANETTE - 7 assessed: 04/24/24 Feeling nervous, anxious, or on edge: 3 = Nearly every day Not being able to stop or control worryin = Nearly every day Worrying too much about different things: 3 = Nearly every day Trouble relaxin = More than half the days Being so restless that it is hard to sit still: 1 = Several days Becoming easily annoyed or irritable: 2 = More than half the days Feeling afraid as if something awful might happen: 3 = Nearly every day Total JEANETTE-7 score (0-4 normal; 5-9 mild; 10-14 moderate; 15-21 severe): 17 Source: Developed by Drs. Lance Pittman, Celeste Duckworth, Nikok Joyner and colleagues, with an educational daniella from [employer]. JEANETTE-7 Assessment Billing JEANETTE-7 Assessment Tool: JEANETTE-7 Assessment 67853 Review of Systems Const Denies poor appetite and Denies weakness Eyes Denies no additional complaints ENT Reports Normal hearing present, Denies dizziness, Denies nasal congestion, Denies tinnitus and Denies sore throat Card Denies chest pain, Denies syncope, Denies rapid heart rate and Denies dyspnea Resp Denies cough and Denies dyspnea GI Denies change in stool character, Reports constipation, Denies diarrhea, Denies nausea and Denies vomiting Denies urinary frequency, Denies difficulty voiding and Denies dysuria Neuro Reports Normal hearing present, Denies confusion, Denies dizziness, Denies syncope and Denies weakness Psych Denies confusion Physical exam (Primary Care) Vital Signs: Last Vital Signs Pulse 78 04/24/24 13:47 BP 124/66 04/24/24 13:47 Pulse Ox 99 04/24/24 13:47 Oxygen Delivery Method Room Air 04/24/24 13:47 BMI result Body Mass Index 31.3 Tobacco/Smoking Status: Tobacco use Status Tobacco use date assessed 12/11/23 04/24/24 13:54 Patient Tobacco Use Status Never used Tobacco 04/24/24 13:54 e-Cigarette/Vaping Use Never Used 04/24/24 13:54 PHQ-9: PHQ-9 Score PHQ-9: Total score 0 04/24/24 13:54 Depression Screening Interpretation: Negative Thrive Assessment: Date of Thrive Assessment Date Thrive assessed 04/24/24 04/24/24 13:54 Const General: No confusion Orientation/consciousness: No confusion HENMT Head: Yes normocephalic Ears: external ears normal and TM's normal bilaterally Face and sinus: Yes normal facial exam Mouth: moist mucous membranes Throat: Yes tonsils normal Eyes Conjunctivae: conjunctivae normal Pupils: Equal, round and reactive pupils present and Pupil accommodation reflex normal Direct Ophthalmoscopy: normal light reflex Neck Neck: No lymphadenopathy Thyroid: Thyroid normal Chest Chest palpation & inspection: normal inspection of the chest Resp Effort & Inspection: normal respiratory effort and no audible wheezes Auscultation: clear to auscultation bilaterally, no crackles, no wheezes and lung sounds not diminished Cardio Rate: regular rate Rhythm: regular rhythm Peripheral pulses: radial pulses present and dorsalis pedis present GI Palpation (GI): no masses Auscultation: normal bowel sounds and normoactive bowel sounds Rectal Exam - Female: deferred Skin General skin exam: no rashes or lesions noted Rashes: no rashes Neuro General: No confusion Cranial nerves: Yes Equal, round and reactive pupils present and Yes Normal hearing present Cognition (Neuro): normal cognition Gait exam (Neuro): Normal gait present Motor exam (neuro): 5/5 motor strength present throughout Deep tendon reflexes (DTR's): Right brachioradialis reflex intensity grade: 2+, Left brachioradialis reflex intensity grade: 2+, Right patellar reflex intensity grade: 2+ and Left patellar reflex intensity grade: 2+ Extrem General: No edema Assessment and Plan Assessment & Plan (1) Annual physical exam: Code(s): Z00.00 - Encounter for general adult medical examination without abnormal findings Plan: Patient is advised to eat healthy, keep well hydrated, keep active and have adequate sleep. (2) Obesity: Code(s): E66.9 - Obesity, unspecified Qualifiers: Obesity type: due to excess calories Obesity classification: adult class 1 (BMI 30 - 34.9) Serious obesity comorbidity presence: without serious comorbidity Body mass index: BMI 31.0-31.9 Qualified Code(s): E66.09 - Other obesity due to excess calories; Z68.31 - Body mass index [BMI] 31.0-31.9, adult Plan: Diet and exercise (3) Sessile serrated polyp of colon: Comment: 11/2023 SCOPE REPEAT 5 YEARS Code(s): D12.6 - Benign neoplasm of colon, unspecified Plan: Colonoscopy done in November 2023 and advised repeat in 5 years (4) Rotator cuff arthropathy of left shoulder: Code(s): M12.812 - Other specific arthropathies, not elsewhere classified, left shoulder Plan: Patient has seen Orthopedics and Physical therapy requested. X-ray negative Orders: Referrals Psychiatry Outpatient Consultation Service F90.9 - Attention-deficit hyperactivity disorder, unspecified type Medications: New tirzepatide (weight loss) (Zepbound) 2.5 mg (0.5 mL) subcut QWEEK 4 weeks 2 mL 0RF E66.09 - Other obesity due to excess calories, Z68.31 - Body mass index [BMI] 31.0-31.9, adult Coding Level of Care Code Est Pt Prev Care 40-64y(23805) Diagnoses Annual physical exam Z00.00 Class 1 obesity due to excess calories without serious comorbidity with body mass index (BMI) of 31.0 to 31.9 in adult E66.09; Z68.31 Obesity type: due to excess calories Obesity classification: adult class 1 (BMI 30 - 34.9) Serious obesity comorbidity presence: without serious comorbidity Body mass index: BMI 31.0-31.9 Sessile serrated polyp of colon D12.6 Rotator cuff arthropathy of left shoulder M12.812 Additional Codes JEANETTE-7 Assessment Billing - JEANETTE-7 Assessment Tool: JEANETTE-7 Assessment 23852 ([id number])
== END ==
PROVIDERS: PCP Internal Medicine; Visit Provider Internal Medicine
DX: Z00.00 Encounter for general adult medical examination without abnormal findings (principal); E66.09 Other obesity due to excess calories; Z68.31 Body mass index [BMI] 31.0-31.9, adult; D12.6 Benign neoplasm of colon, unspecified; M12.812 Other specific arthropathies, not elsewhere classified, left shoulder
CPT/HCPCS: 99396

== ENCOUNTER 2025-02-07 08:53 | Outpatient (AMB) | payer BC, SELFPAY ==
--- NOTE | 2025-02-07 08:55 | A.OFFPC_ITS ---
Vital Signs 02/07/25 08:56 Height 5 ft 6 in Weight 158 lb 2 oz BMI 25.5 BP 120/70 Blood Pressure Location Lt brachial Position Sitting Pulse 71 Pulse Source Pulse Oximeter Temp 97.1 F Temp Source Temporal Artery Scan Pulse Oximetry (%) 98 Oxygen Delivery Method Room Air Intake Visit Reasons: weight check/ refill on hsieh loss medication Intake Note: Patient is here to follow up on Weight check and medication refill. Crts Required: No Small Engine Technician: Not Required per policy Accompanied by: Self / Same As Patient Allergies No Known Allergies Allergy (Verified 02/07/25 09:07) Medication List - Last Reconciled 02/07/25 by Haley Costa PA-C [collagen protein PO] estradiol 1 patch transdermal 2XW [id number] 1000-130(40-80) mg caps PO magnesium 250 mg PO DAILY multivitamin 1 tab PO DAILY naproxen 500 mg PO BID progesterone micronized 100 mg PO BEDTIME tirzepatide (weight loss) 5 mg (0.5 mL) subcut QWEEK 90 days Tobacco use date assessed: 02/07/25 Dental Screening Dental Screen Date: 02/07/25 Did you have a dental visit in the last 12 months?: Yes Did you have a dental problem in the last 6 months where you did not have access to dental care?: No Was dental information given to patient?: Patient has dentist HPI weight check/ refill on hsieh loss medication HPI Details 54-year-old female with past medical his tory of obesity, ADHD last seen 04/2024 coming in for follow up. Presenting for follow-up of weight management and concerns about memory loss and anxiety. Reports significant weight loss, totaling 54 pounds over the past year, with recent increased appetite after stopping Zepbound. Has been off Zepbound 5 mg for several months due to insurance coverage issues. Reports memory loss with difficulty remembering and repeatedly asking questions. She has a history of these symptoms worsening in recent years. Recently experienced anxiety and slight depression following unexplained job termination after eight years. Recent episodes of feeling anxious, without long-standing depression, but concerned about recent changes in memory. [facility] Medical History Shoulder pain, left Family history of polyps in the colon Pre-op examination Colon cancer screening Cervical cancer screening Breast cancer screening Surgical History Hx of colonoscopy Family History Mother Lung cancer Father Skin cancer CVA (cerebral vascular accident) Sister No problems noted. Sister No problems noted. Sister Mental health disorder Daughter No problems noted. 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 1. Little interest or pleasure in doing things: several days 2. Feeling down, depressed, or hopeless: several days 3. Trouble falling or staying asleep, or sleeping too much: not at all 4. Feeling tired or having little energy: several days 5. Poor appetite or overeating: more than half the days 6. Feeling bad about yourself - or that you are a failure or have let yourself or your family down: several days 7. Trouble concentrating on things, such as reading the newspaper or watching television: nearly every day 8. Moving or speaking so slowly that other people could have noticed. Or the opposite - being so fidgety or restless that you have been moving around a lot more than usual: more than half the days 9. Thoughts that you would be better off or of hurting yourself in some way: not at all Total score: 11 Depression Screening Interpretation: Positive (recent life stress ) Depression Screening Follow-up: Declines treatment Depression Screening Done: Yes 26167 - PHQ-9 Billing: Yes Source: Developed by Drs. Lance Pittman, Celeste Duckworth, Nikko Joyner and colleagues, with an educational daniella from [employer]. Thrive Questionnaire Date Thrive assessed: 01/31/25 I am a: Patient What is your living situation today?: I have a steady place to live Within the past 12 months, did the food you bought not last and you didn't have the money to get more?: Never true Within the past 12 months, did you worry whether your food would run out before you got money to buy more?: Sometimes True Do you have trouble paying for medicines?: No Do you have trouble getting transportation to medical appointments?: No Do you have trouble paying your heating and electricity bill?: No Do you have trouble taking care of your child, family member or friend?: No Do you have trouble with day-to-day activities such as bathing, preparing meals, shopping, managing finances, etc.?: I choose not to answer this question Are you currently unemployed and looking for a job?: Yes Are you interested in more education?: Yes Please select the resources that you would like help with: Job search/training and Education Currently or been in a relationship where the following occur: No concerns reported THRIVE Score: 1 AUDIT C Alcohol Use Questionnaire (AUDIT-C) 1. How often do you have a drink containing alcohol?: Monthly or less 2. How many drinks containing alcohol do you have on a typical day when you are drinking?: 1 or 2 3. How often do you have six or more drinks on one occasion?: Never Total Score: 1 JEANETTE-7 AMB Questionnaire JEANETTE-7 Date JEANETTE - 7 assessed: 02/07/25 Feeling nervous, anxious, or on edge: 3 = Nearly every day Not being able to stop or control worryin = Several days Worrying too much about different things: 1 = Several days Trouble relaxin = More than half the days Being so restless that it is hard to sit still: 1 = Several days Becoming easily annoyed or irritable: 0 = Not at all Feeling afraid as if something awful might happen: 1 = Several days Total JEANETTE-7 score (0-4 normal; 5-9 mild; 10-14 moderate; 15-21 severe): 9 Source: Developed by Drs. Lance Pittman, Celeste Duckworth, Nikko Joyner and colleagues, with an educational daniella from [employer]. Review of Systems Const Denies body aches, Denies chills, Denies fever(s), Denies headache(s) and Denies poor appetite Eyes Reports no additional complaints ENT Denies dizziness and Denies headache(s) Card Denies chest pain, Denies lightheadedness and Denies dyspnea Resp Denies dyspnea Musc Denies abnormal gait Skin/Breast Reports system reviewed and no additional complaints, except as documented Neuro Reports as per HPI, Denies abnormal gait, Denies dizziness and Denies headache(s) Psych Reports no additional complaints Physical exam (Primary Care) Vital Signs: Last Vital Signs Temp 97.1 F 02/07/25 08:56 Pulse 71 02/07/25 08:56 BP 120/70 02/07/25 08:56 Pulse Ox 98 02/07/25 08:56 Oxygen Delivery Method Room Air 02/07/25 08:56 BMI result Body Mass Index 25.5 Tobacco/Smoking Status: Tobacco use Status Tobacco use date assessed 02/07/25 02/07/25 08:56 Patient Tobacco Use Status Never used Tobacco 02/07/25 08:56 e-Cigarette/Vaping Use Never Used 02/07/25 08:56 PHQ-9: PHQ-9 Score PHQ-9: Total score 11 02/07/25 08:56 Depression Screening Interpretation: Positive (recent life stress ) Depression Screening Follow-up: Declines treatment Thrive Assessment: Date of Thrive Assessment Date Thrive assessed 01/31/25 02/07/25 08:56 Currently or been in a relationship where the following occur: No concerns reported Const General: cooperative, healthy appearing, comfortable and no acute distress Orientation/consciousness: patient oriented x3 HENMT Head: Yes normocephalic Ears: hearing grossly normal bilaterally General nose exam: Normal external nose present Eyes General: appearance normal, both eyes and all related structures Conjunctivae: conjunctivae normal Pupils: Equal, round and reactive pupils present Neck Neck: Yes full ROM and Yes no lymphadenopathy Resp Effort & Inspection: normal respiratory effort Auscultation: clear to auscultation bilaterally, no crackles, no rales, no rhonchi and no wheezes Cardio Rate: regular rate Rhythm: regular rhythm Skin General skin exam: no rashes or lesions noted Neuro General: patient oriented x3 Cranial nerves: Yes Facial sensation intact/muscles of mastication intact, Yes Equal, round and reactive pupils present, Yes Bilaterally intact EOM present, Yes Nystagmus not present, Yes Normal facial strength present, Yes Midline tongue present, Yes Symmetric palate elevation present, Yes Ability to bilaterally rotate head present and Yes Ability to bilaterally elevate shoulders present Cognition (Neuro): normal cognition Gait exam (Neuro): Normal gait present Motor exam (neuro): 5/5 motor strength present throughout and Pronator motor function not present Extrem General: Yes normal to inspection, Yes full ROM and No edema Psych Affect: normal affect Attitude: cooperative Insight: Good insight present (Psych) Judgement: Good judgement present (Psych) Coding Level of Care Code Est Pt Level 3 (07025) Diagnoses Overweight (BMI 25.0-29.9) E66.3 Memory impairment R41.3 Depression F32.A Additional Codes PHQ-9 - 71099 - PHQ-9 Billing: Yes ([id number]) Assessment & Plan Assessment & Plan (1) Overweight (BMI 25.0-29.9): Code(s): E66.3 - Overweight Category: Medical Plan: Healthy diet and regular exercise is encouraged. Discussed with patient and her BMI does not necessarily qualify her for the use of Zepbound however she is asking for refill which was sent to the pharmacy today. Discussed the importance of having blood work done prior to restarting. (2) Memory impairment: Code(s): R41.3 - Other amnesia Category: Medical Plan: Reporting memory impairment. Neuro exam and MMSE reassuring today plan to refer to Neurology at patient request. (3) Depression: Code(s): F32.A - Depression, unspecified Category: Medical Plan: Patient endorsing feelings of depression related to recent termination. Declines treatment at this time. Denies any SI or HI Plan I will attempt to restart Zepbound for weight management contingent upon insurance approval, addressing the increased cravings the patient has noted since stopping the medication. I recommend a neurology referral due to her memory complaints, despite a reassuring preliminary mental status exam and neurologic examination today. Follow-up bloodwork has been ordered for a comprehensive evaluation, and additional fasting precautions were explained. I provided guidance on managing stress and anxiety relating to her job loss, emphasizing self-care and potential therapeutic avenues should her symptoms persist. We will conduct a follow-up in three months to monitor the efficacy of ongoing interventions. This note was constructed using voice recognition software. While every effort has been made to ensure accuracy and first aid teacher, still areas may have been included sometimes these areas may affect the content or meeting of the given symptoms. Total time spent caring for the patient today was 20 minutes. This includes time spent before the visit reviewing the chart, time spent during the visit, and time spent after the visit and documentation. Patient was informed and verbally consented to the use of an ambient scribe for clinic note documentation during this visit. Orders: Orders Complete Blood Count Auto Diff Today E66.9 - Obesity, unspecified Thyroid Stimulating Hormone Today E66.9 - Obesity, unspecified Vitamin B12 and Folate Today E66.9 - Obesity, unspecified Comprehensive Met. Panel Today E66.9 - Obesity, unspecified Free T4 (Free Thyroxine) Today E66.9 - Obesity, unspecified Lipid Panel Today E66.9 - Obesity, unspecified, E78.00 - Pure hyperc holesterolemia, unspecified Vitamin D 25-OH Total Today E66.9 - Obesity, unspecified Referrals Neurology Referral R41.3 - Other amnesia Medications: Refilled tirzepatide (weight loss) 5 mg (0.5 mL) subcut QWEEK 90 days 6.5 mL 0RF E66.3 - Overweight
[2025-02-07 08:56] VITALS: BP 120/70; PULSE 71; TEMP 36.2; O2SAT 98; BMI 25.5
== END 2025-02-07 09:37 | disposition home or self-care (01) ==
LOC: HO.HMCH 08:54
PROVIDERS: PCP Internal Medicine
DX: E66.3 Overweight (principal); R41.3 Other amnesia; F32.A Depression, unspecified

== ENCOUNTER → 2025-02-07 08:53 | Outpatient (BNVA) | payer BC, SELFPAY | PROVIDERS: PCP Internal Medicine | DX: E66.3 Overweight (principal); R41.3 Other amnesia; F41.9 Anxiety disorder, unspecified; F32.A Depression, unspecified; E78.00 Pure hypercholesterolemia, unspecified; Z68.25 Body mass index [BMI] 25.0-25.9, adult | CPT/HCPCS: 96127 ==

== ENCOUNTER 2025-02-18 07:11 | Outpatient (REF) | payer BC, SELFPAY ==
--- OUTSIDE RECORDS SUMMARY | 2025-02-18 07:13 | XMS_ITS | Data Portability ---
Author Organization [email or web address] in Office Address [address] [place] [address] Assessment Encounter Date Assessment Date Assessment LastModified by Organization Details LastModified Time 07/14/2023 07/14/2023 I spent 30 minutes of ciue-ln-ydia counselling and care coordination time with the patient. This includes reviewing medical records (medical, surgical, family and social history); updating medication and allergy information in the electronic health record; and ordering labs, medications, and education materials to continue patient care. [email or web address] Not available 07/14/2023 08:56:24 09/22/2023 09/22/2023 I spent 20 minutes of tbwu-il-lkfe counselling and care coordination time with the patient. This includes reviewing medical records (medical, surgical, family and social history); updating medication and allergy information in the electronic health record; and ordering labs, medications, and education materials to continue patient care. [email or web address] Not available 09/22/2023 08:24:53 12/01/2023 12/01/2023 I spent 25 minutes of dumd-np-jsgi counselling and care coordination time with the patient. This includes reviewing medical records (medical, surgical, family and social history); updating medication and allergy information in the electronic health record; and ordering labs, medications, and education materials to continue patient care. [email or web address] Not available 12/01/2023 14:15:05 01/12/2024 01/12/2024 I spent 30 minutes of pzsf-kz-ffod counselling and care coordination time with the patient. This includes reviewing medical records (medical, surgical, family and social history); updating medication and allergy information in the electronic health record; and ordering labs, medications, and education materials to continue patient care. [email or web address] Not available 01/12/2024 09:48:03 09/20/2024 09/20/2024 I spent 15 minutes of kayv-jv-mwuh counselling and care coordination time with the patient. This includes reviewing medical records (medical, surgical, family and social history); updating medication and allergy information in the electronic health record; and ordering labs, medications, and education materials to continue patient care. Not available 09/20/2024 08:46:03 Plan of Treatment Reminders Order Date Submit Date Provider Last Modified By Organization Details Last Modified Time Details Appointments [id number] 2024 05:30A M Bettie Wilson NP Not available Not available Not available Lab CMP, serum or plasma 2023 024 EM[facility] (Centralized Electronic Ordering - All Locations), Patient Can Go To The Location Of Their Choice, [facility] [place] 01/22/2024 11:10:27 HbA1c (hemoglob in A1c), blood 2023 024 EM[facility] (Centralized Electronic Ordering - All Locations), Patient Can Go To The Location Of Their Choice, [facility] [place] 01/22/2024 11:10:30 lipid panel, serum 2023 024 EM[facility] (Centralized Electronic Ordering - All Locations), Patient Can Go To The Location Of Their Choice, [facility] [place] 01/22/2024 11:10:28 insulin, serum - fasting please 2023 024 EM[facility]IO [facility] (Centralized Electronic Ordering - All Locations), Patient Can Go To The Location Of Their Choice, [facility] [place] 01/22/2024 11:10:29 Referral None recorded. Procedures None recorded. Surgeries None recorded. Imaging None recorded. Medication Orders estradiol 0.075 mg/24 hr semiweekl y transderm al patch 2024 025 [facility]/Pharmacy #[id number], [address] [place], [address], 09/20/2024 08:45:59 progester one micronize d 100 mg capsule 2024 025 EMILIO [facility]/Pharmacy #[id number], [address] [place], [address], 09/20/2024 08:45:59 Vivelle-D ot 0.075 mg/24 hr transderm al patch 2023 024 EMILIO [facility]/Pharmacy #[id number], [address] [place], [address], 12/01/2023 08:15:10 Patient TargetsNo targets recorded. Patient Instructions Encounter Date Encounter Id Patient Instructions Last Modified By Organization Details Last Modified Time 07/14/2023 [id number] Any requested follow-up visits are listed below in the Plan of Care section. Go directly to the [employer] scheduler conveyor at [email or web address] to book a time. [email or web address] Not available 07/14/2023 08:23:20 It was a pleasur e to meet with you today! We discussed your health concerns related to menopause, including increased hunger, brain fog, and sleep issues. -------- Your Care Plan -------- Together, we decided that you would: - Continue with the current dose of estrogen (0.05) for another four weeks to see if your symptoms improve. - Continue taking progesterone at bedtime, remembering not to double up if you miss a dose. - Schedule a follow-up appointment for August 25 at 8:30 am to assess your progress and discuss potential adjustments to your treatment plan. - Monitor your symptoms, particularly your increased hunger, brain fog, and sleep disturbances. If these symptoms persist or worsen, please contact your clinician. - Consider the potential impact of seasonal changes on your mood and energy levels. If you continue to experience increased hunger and decreased energy as the winter progresses, we can discuss adding a non-hormonal medication to your regimen at your next appointment. - Prioritize getting good sleep, as poor sleep can significantly impact your mood, energy levels, and overall health. If you continue to wake up frequently during the night, we can discuss potential solutions at your next appointment. Please carefully review the care plan we have decided upon, specific information regarding your medication, and important details about your treatment detailed below. Thank you for trusting us with your care! [email or web address] Not available 07/14/2023 08:53:43 09/22/2023 [id number] Any requested follow-up visits are listed below in the Plan of Care section. Go directly to the Fi[employer] scheduler conveyor at [email or web address] to book a time. [email or web address] Not available 09/21/2023 15:17:51 It was a pleasur e to meet with you today! We discussed your health concerns related to your lingering cold symptoms and menopause. -------- Your Care Plan -------- Together, we decided that you would: - Continue using the 0.05 estrogen patches. We discussed that you had some concerns about increased hunger when we increased the dose, but given your current illness, we decided it would be best to keep the dose the same for now. - Continue taking progesterone at night. This is part of your current regimen for managing menopause symptoms. - Continue taking Vitamin D. - Schedule a follow-up appointment for November 30 at 8 a.m. At this appointment, we can reassess your menopause symptoms and make any necessary adjustments to your treatment plan. Please carefully review the care plan we have decided upon, specific information regarding your medication, and important details about your treatment detailed below. Thank you for trusting us with your care! [email or web address] Not available 09/22/2023 08:26:27 12/01/2023 [id number] Any requested follow-up visits are listed below in the Plan of Care section. Go directly to the Fi[employer] scheduler conveyor at [email or web address] to book a time. Not available 12/01/2023 08:02:55 It was a [employer] e to meet with you today! We discussed your health concerns related to menopause, including mood changes and irritability. -------- Your Care Plan -------- Together, we decided that you would: - Increase your estrogen dosage. This adjustment is aimed at improving your mood and energy levels. We will monitor this jacket changer the next month to see how it affects your symptoms. - Schedule a follow-up appointment for January 11 at 8:30 am. This will allow us to assess how you're responding to the increased estrogen dosage. - Consider using a mail order pharmacy, specifically [facility], to avoid delays in receiving your medication. You can initiate this change by sending me a portal message when you're due for a refill. Please carefully review the care plan we have decided upon, specific information regarding your medication, and important details about your treatment detailed below. Thank you for trusting us with your care! [email or web address] Not available 12/01/2023 14:15:31 01/12/2024 [id number] Any requested follow-up visits are listed below in the Plan of Care section. Go directly to the Fi[employer] scheduler conveyor at [email or web address] to book a time. [email or web address] Not available 01/12/2024 08:33:09 It was a pleasur e to meet with you today! We discussed your health concerns related to your increased estrogen dose, shoulder pain, and weight gain. -------- Your Care Plan -------- Together, we decided that you would: - Continue using the 0.075 estrogen patch. This is a higher dose than you were previously on, and while it has led to some nipple tenderness, it has also improved your energy and cognitive function. This tenderness is a common side effect that usually subsides within 12 weeks of starting the dose. To help manage this, you can: - Wear a tight-fitting bra, which can help dull the aching and discomfort. - Take qrzi-cwx-cyrfnyn vitamin E and evening primrose oil capsules, which can help with breast and nipple tenderness. These should be taken orally. - Get blood work done at [facility] on [facility] in [place]. This will help us check for any insulin resistance and evaluate your average glucose level (A1C). You can call them at [phone] to make an appointment. If they do not have the orders in their system, you can print out the orders from your patient portal and bring them with you. - Follow up with me on February 15 at 9:30 am. We will review your lab results and discuss your progress with the estrogen patch and any decisions about weight loss medication. Please carefully review the care plan we have decided upon, specific information regarding your medication, and important details about your treatment detailed above. Thank you for trusting us with your care! INFO FOR WEIGHT MANAGEMENT/MEDICATIO NS: - Protein: Eat 100 grams daily (aim for at least 20g with every meal) - Fiber: Eat 25 grams daily (may include 10-12 grams of supplemental fiber) - Carbs: Aim for less than 100 grams daily - Hydration: Drink 100 oz water daily ? Exercise: -Aim for 150-200 minutes of vigorous exercise/week (at least 30 mins x 5 days a week) -Include strength training to maintain and build muscle ? Nutritional Consult: Let me know if you would like a referral to a piccoloist to help you with more detailed diet instruction and education. There are two virtual options for piccoloist/dietici an services that take insurance: Nourish: https://www.usenouri InVisioneer.com HealthLoft: https://Phoseon Technology .Qraved Akkermansia (probiotic): Studies: https://www.ncbi.nlm .nih.gov/pmc/article s/KXB88554850 and https://www.ncbi.nlm .nih.gov/pmc/article s/RUK5645758 Where to buy (this is just one option, does not have to be this brand): https://Backplane/products/Ciplexsteven um-akdeepaksia FIBER: Increased fiber intake can be a successful strategy for weight management and modest weight loss. In addition, fiber has other helpful benefits to digestion, as a prebiotic for overall gut and immune health, moderating blood sugars and improving blood cholesterol levels. Please review the attached resource sheet The [facility] Fiber FAQs that provides more details on the daily recommended intake of fiber to achieve health goals. This includes strategies for incorporating fiber as a weight management strategy. Supplementing your diet with fiber through supplements and/or through dietary intake, or incorporating high fiber foods such as zofia seeds into your daily regiment has been shown in some studies to lead to modest (5-6 lb) weight loss in just a few weeks. Fiber supplements like Konsyl fiber or Yerba Prima could be good options as they have been demonstrated to have the least contamination from lead (https://www.AkaRx rlab.com/reviews/psy llium-supplements/ps yllium/). BERBERINE: Berberine is a supplement made from plant extracts that seems to have multiple health benefits, especially on metabolism and cardiovascular risks. Small scale studies support its use in controlling an appetite and specifically inhibiting an enzyme leading to central fat storage. These studies have shown modest weight loss (5 + lbs in 12 weeks) and reduction in waist circumference with daily use of berberine supplements. Berberine has been shown to reduce average blood sugar levels and HgA1C (the lab value that measures average blood sugar), lower triglycerides and lipid levels and positively affect metabolic syndrome. How to take berberine: The best evidence suggests that you take a berberine 500 mg tablet/ three times per day (total 1.5 gm/day). Take it 30 minutes before each meal. It has been used safely up to 6 months. Chronic use is not usually recommended as it is a potent antimicrobial and affects the gut microbiome. (It can cause digestive issues as a side effect.) The [facility]i take: Early studies show amazing effects on cardiovascular risk factors overall but the studies are very small and more information is needed. It does appear to be safe, however: Cautions: - Berberine can interact with blood thinning medications and increase your risk of bruising or bleeding. If you are taking blood thinners such as coumadin, plavix. Eliquis, Pradaxa or Xeralto you may wish to consider alternatives to berberine in your metabolic care plan. - Berberine can interact with many drugs: Cozaar, metformin, tacrolimus, pentobarbital, Versed, Robitussin DM, sedatives, and other medications. These interactions may require more clinical monitoring or dose adjustments and should be discussed with your pharmacist and clinician. - If you have diabetes, berberine can lower your blood sugars and decrease your insulin needs, so monitoring your blood sugar closely is advised, and adjustments made under the advice of your diabetes physician. - Berberine can lower blood pressure, so taking it with medications that lower blood pressure might cause your blood pressure to go too low. Your blood pressure should be monitored closely. METFORMIN: Metformin is an oral prescription medication that can be used successfully for modest weight loss. Metformin has an excellent safety profile and is well-tolerated by most people. - It is also used by people with pre-diabetes, diabetes, PCOS and hormonal irregularities. ? The dosage of Metformin is titrated up slowly every 4-8 weeks to ensure you are able to tolerate the medication. Increasing the dosage too rapidly can lead to worsening side effects. Modest weight loss of approx 5-10lbs is usually seen when the dosage of Metformin is titated up to about 1000mg or 1500mg and that you are able to tolerate it at that dosage. Please be patient as this process can take several months to achieve the optimal dosage for you and your body. ? Ideally, taking Metformin before meals can help reduce carbohydrate absorption but that can often lead to nausea so it is best to take it with a meal or after a meal. If your prescription calls for taking more than 1 tablet per day: you can take all the pills with your largest meal; or take one with every meal. Efficacy is the same with either method. ? Common side effects include: nausea/vomiting, diarrhea, gas/bloating, stomach pain, headache and fatigue. Bothersome side-effects typically improve over the course of the first few weeks of taking Metformin. ? It is recommended to supplement daily with Vitamin B12 while on Metformin, as this medication can deplete your B12 stores. Please monitor your Vitamin B12 levels every 3-6 months to ensure that you are absorbing the supplementation. It is recommended to avoid excessive alcohol use while taking Metformin. ? Important Note: Lactic acidosis: Metformin associated lactic acidosis (CULLEN) is rare but potentially life threatening. The symptoms of lactic acidosis include abdominal or stomach discomfort, decreased appetite, diarrhea, fast, shallow breathing, a general feeling of discomfort, muscle pain or cramping, and unusual sleepiness, tiredness, or weakness. Dehydration can be a cause of lactic acidosis. Remember to stay well-hydrated, and discontinue metformin therapy if you are experiencing vomiting, diarrhea or dehydration. Bariatric surgery increases risk for lactic acidosis. ? If you experience any concerning side effects, stop taking Metformin and contact your [facility] provider as soon as possible. However, if you suspect you are experiencing lactic acidosis, or other unusual and very concerning symptoms please go to urgent care or ER for immediate evaluation. HOW METFORMIN WORKS: Metformin's major effect is to decrease liver glucose output and increases glucose utilization in peripheral tissues (such as muscle and liver) and decreases the glucose absorbed by the intestines, particularly after meals. By decreasing the amount of glucose produced by the liver, it increases the body's sensitivity to insulin. Metformin has also been shown to decrease food intake, with some appetite suppression as it prompts the release of appetite suppressing hormones and affects the appetite-regulating parts of the brain. Metformin can lead to modest weight loss. Metformin can help reverse the metabolic changes that often happen with age: Lowering glucose levels keeps weight in a healthy range, helps maintain a healthy blood pressure and lowers the risk of cardiovascular disease. It can also lower inflammation, which is involved in the aging process. METFORMIN STUDIES: Multiple studies are underway at this time to evaluate the effect of Metformin for anti-aging. It has been featured in the news recently as a having potential to expand the lifespan - NOTE: there are no quality trials validating its use for anti-aging specifically. Some studies show it helps prevent cancer, slows down the aging process, protects the heart, and protects cognitive decline in the brain but it is not yet a confirmed clinical recommendation at this time. Metformin leads to decreased insulin levels, decreased IGF-1 signaling, inhibition of mTOR, inhibition of mitochondrial complex 1 in the electron transport chain and reduction of endogenous production of reactive oxygen species (ROS). In studies with rats at an early age, Metformin increases healthy lifespan by 14% but it is important to note, the later that Metformin was started, the less it increased healthy lifespan. It is hypothesized that if Metformin can target and delay aging, the use of it can be associated with fewer age related diseases. Clinical trials: The Diabetes Prevention Trial (DPP) The [place] Prospective Diabetes Study HOME TAME Metformin as Anti-Aging Therapy: Is It for Everyone? Link: https://www.Band Digital.Qraved/science/joseph stephens/pii/S215287750 858187H Main Points (a review): Prolongs lifespan and healthspan in the invertebrate Caenorhabditis elegans and Mice as well as potentially human longevity Metformin regulates metabolic and non metabolic pathways in skeletal muscle and subcutaneous adipose tissues of older adults Link: https://onlinelibrar y.guillen.com/doi/epdf /10.1111/acel.77689? src=milana Main Points: Studied~70-year-old participants (n=14) in a randomized, double-blind, placebo-controlled,[facility] trial in which they were treated with 6 weeks each of metformin and placebo. Provides the first evidence that, in older adults, metformin has metabolic and non metabolic effects linked to aging (metformin therapy lowered 2-hour glucose, insulin AUC, and insulin secretion; 647 genes were differentially expressed in muscle and 146 genes were differentially expressed in adipose tissue; pyruvate metabolism and DNA repair in muscle and PPAR and SREBP signaling were significantly influenced) Benefits of Metformin in Attenuating the Hallmarks of Aging Link: https://www.ncbi.nlm .nih.gov/pmc/article s/GFF9361090/ Metformin mechanism: improving nutrient-sensing, enhancing autophagy and intercellular communication, protecting against macromolecular damage, delaying stem-cell aging, modulating mitochondrial function, regulating logging specialist, and lowering telomere attrition and senescence. GLP-1 AGONISTS: How Do GLP-1 Agonists Work to help with weight loss? These medications decrease hunger cues, turns off food ? c hatter? , increases early satiety, & slows gastric emptying so patients stay sutton longer. Videos about the mechanism of action of GLP-1 agonists: https://www.youCornerstone Propertiesube. com/watch?v=KsfDQQSZ [facility] https://www.youtube. com/watch?v=P6gt4A_3 Whs Coupons for Zepbound: [place] [phone] to enroll for a digital starter kit to help them get started on Zepbound.The Digital Starter Kit provides tips for starting Zepbound, what to expect, reminder options, and additional resources. Tips for Taking GLP-1s: Note: MOUNJARO/ZEPBOUND are brand names for TIRZEPATIDE and OZEMPIC/WEGOVY are brand names for SEMAGLUTIDE. ? -You can take with or without food -If you need to change the day of the week, you may do so as long as your last dose was given 2 or more days before -If you take too much you may have severe nausea, severe vomiting, and severe low blood sugar. This is why it is critical to follow the dosing regimen prescribed by your [facility] Weight Loss Expert. ? What to Do if You Miss a Dose -If you miss a dose, and the next scheduled dose is MORE than 2 days away (48 hours), take the missed dose as soon as possible -If you miss a dose, and the next scheduled dose is LESS than 2 days away (48 hours), do not administer the dose. Take your next dose on the regularly scheduled day -If you miss your dose for more than 2 weeks, take the next dose on the regularly scheduled day or message your [facility] Weight [facility] Expert to talk about how to restart your treatment The most common side effects may include: nausea, diarrhea, constipation, headache, abdominal pain, tiredness, upset stomach, dizziness, feeling bloated, belching, gas, stomach flu, heartburn. The most common side effect is nausea. It tends to go away on its own, but here are some tips to help you manage nausea associated with this medication: -Eat bland, low-fat foods, like crackers, toast, and rice -Eat foods that contain water, like soups and gelatin -Avoid lying down after you eat -Go outdoors for fresh air -Eat more slowly ? Important Safety Information Tirzepatide/Mounjaro /Zepbound/Semaglutid e/Ozempic/Wegovy may cause serious side effects, including: -Inflammation of your pancreas (pancreatitis). Stop using this medication and call your [facility] healthcare provider right away if you have severe pain in your stomach area (abdomen) that will not go away, with or without vomiting. You may feel the pain from your abdomen to your back. -Gallbladder problems. May cause gallbladder problems, including gallstones. Some gallstones may need surgery. Call your [facility] healthcare provider if you have symptoms, such as pain in your upper stomach (abdomen), fever, yellowing of the skin or eyes (jaundice), or armando-colored stools. -Increased risk of low blood sugar (hypoglycemia) in patients with type 2 diabetes, especially those who also take medicines for type 2 diabetes such as sulfonylureas or insulin. This can be both a serious and common side effect. Talk to your [facility] healthcare provider about how to recognize and treat low blood sugar and check your blood sugar before you start and while you take this medication. Signs and symptoms of low blood sugar may include dizziness or light-headedness, blurred vision, anxiety, irritability or mood changes, sweating, slurred speech, hunger, confusion or drowsiness, shakiness, weakness, headache, fast heartbeat, or feeling jittery. -Kidney problems (kidney failure). In people who have kidney problems, diarrhea, nausea, and vomiting may cause a loss of fluids (dehydration) which may cause kidney problems to get worse. It is important for you to drink fluids to help reduce your chance of dehydration. -Serious allergic reactions. Stop using this medication and get medical help right away, if you have any symptoms of a serious allergic reaction, including swelling of your face, lips, tongue, or throat; problems breathing or swallowing; severe rash or itching; fainting or feeling dizzy; or very rapid heartbeat. -Change in vision in patients with type 2 diabetes. Tell your [facility] healthcare provider if you have changes in vision during treatment while on this medication. -Increased heart rate. This medication can increase your heart rate while you are at rest. Tell your [facility] healthcare provider if you feel your heart racing or pounding in your chest and it lasts for several minutes. -Depression or thoughts of suicide. You should pay attention to any mental changes, especially sudden changes in your mood, behaviors, thoughts, or feelings. Call your [facility] healthcare provider right away if you have any mental changes that are new, worse or worry you. If you EVER have any thoughts of self harm or thoughts of harming someone else, please go to the closest emergency department or call 911. You can also call / text 267 [email or web address] m_[email or web address] COMPOUNDED MEDICATIONS FOR WEIGHT: Available for patients who's insurance will not cover the cost of medications or who are not able to access these medications due to supply chain issues. Compounded Semaglutide or Tirzepatide can be prescribed to: [facility] Located in [address], [place], [place] Phone number is: Approximate Cost: Semaglutide/Cyanocob alamin 1mg/1mg/ml 1ml vial -$80 5ml vial -$200 Supplies $5 Shipping $35 *They only do 1ml and 5ml vials. The dosing is as follows: 1st month: 1ml needed for the whole month 2nd month: 2ml needed for the whole month 3rd month: 5ml needed for the whole month 4th month: 6ml needed for the whole month 5th month and on, (max dosage): 8ml needed for the whole month Tirzepatide 10mg/ml (At this time this is NOT available for patients in the state [facility]) 1ml vial -$400 4ml vial -$1000 Supplies $5 Shipping $35 *They only do 1ml and 4ml vials. The dosing is as follows: 1st month: 1ml needed for the whole month 2nd month: 2ml needed for the whole month 3rd month: 3ml needed for the whole month 4th month: 4ml needed for the whole month 5th month: 5ml needed for the whole month 6th month and on, (max dosage): 6ml needed for the whole month Note: Please remember that it is a minimum of 4 weeks at any dose but you can always stay at a dose for longer than that. The goals are for patients to lose 1-2 pounds per week and have minimal or no side effects. The dosing should be titrated with these goals in mind. More info: -once [facility] receives the prescription they will be reaching out to you via email within the week. Please ensure that a correct email is on file in your patient portal. If they can't reach you via email they will be calling you. -you will be receiving instructions regarding how to draw up the medications and do the injections from the pharmacy along with the necessary supplies. CONTRAVE: This is the website for this medication: [email or web address].[email or web address] Contrave is a medication that is FDA approved for weight loss. Contrave is made up of two medications. The generic name is bupropion and naltrexone. Bupropion is also sold under different names including Wellbutrin, Zyban, Aplenzin, Forfivo, Buproban. If dosage goes up too quickly, it can cause nausea and vomiting. Please follow these instructions over the next four weeks to prevent side effects from developing: Week 1: Take 1 tablet once a day Week 2: Take 1 tablet twice a day Week 3: Take 2 tablets in the morning and 1 tablet in the afternoon/evening Week 4 and beyond: Take 2 tablets TWICE a day Tips for Taking Contrave: - Can promote wakefulness, so take it in the morning - Common mild side effects may include dry mouth, insomnia, headache, mild anxiety. - Severe side effects: seizures, rapid or irregular heartbeat, very high blood pressure. - In clinical trials, CONTRAVE was administered with meals. However, CONTRAVE should not be taken with a high-fat meal because of a resulting significant increase in bupropion and naltrexone systemic exposure Important Safety Information Blood Pressure: Contrave can sometimes cause in increase in blood pressure so its best to check your blood pressure twice in the week when you start this medication and with any dosage increases. Seizures: Do not take Contrave if you have ever had a seizure. If you have any concerning symptoms like tremulousness, muscle twitching or restlessness contact your clinician. Loss of appetite: Contrave can cause decreased appetite so should not be taken if you have a history of an eating disorder Contrave is made up of two medications. The generic name is bupropion and naltrexone. Bupropion is also sold under different names including Wellbutrin, Zyban, Aplenzin, Forfivo, Buproban and others, so be sure you are not already taking this medication. Do not combine Contrave with a monoamine oxidase inhibitor medication (MAOI) or start this medicaton if you have recently been taking an MAOI. Do not combine Contrave with the antibiotic linezolid. One of the medications used in Contrave is an antidepressant and this class of medications has occasionally been associated with changes in thinking and behavior, worsening depression, suicidal thought or actions, or development of symptoms of nohelia. Call your healthcare provider right away if symptoms such as anxiety, irritability, impulsivity, trouble sleeping, aggressive behavior or suicidal thoughts occur. If you feel unsafe, EVER have thoughts of self harm or thoughts of harming someone else please go to the nearest emergency department or call 911. You can also call/text [phone] for the 988 [facility] Glaucoma has occurred rarely in patients on Contrave, report any eye pain or changes in vision. Do not start Contrave if you have glaucoma If you are , plan to become or are nursing, talk to your healthcare provider about the possibility of risk to your baby. Serious allergic reactions. If allergic symptoms occur such as rash, itching, hives stop the medication and contact your clinician. Stop using Contrave and get medical help right away if serious allergic symptoms like swelling of the face, lips, tongue or trouble breathing occur. QSYMIA: is a pill containing both phentermine and topiramate used to treat obesity. It is used together with dietary changes and exercise. How to take Qsymia: Take in the mornings with or without food You will be getting 2 prescriptions. A starter dosage that you do for 2 weeks, and then the regular dosage that you will do for the next 10 weeks: Week 1-2 (starter pack): Take 1 Qsymia 3.75 mg/23 mg capsule once each morning for the first 2 weeks. Week 3-12 (regular dosage): On the first day of week 3, you will start the regular dose, 1 Qsymia 7.5 mg/46 mg capsule each morning x 10 weeks. ? After 12 weeks, if weight loss is less than 3% at the regular dosage you may increase to the next dose: Week 13-14: On the first day of week 13, start Qsymia 11.25 mg/69 mg x 2 weeks. Week 15+: Followed by monthly prescription of Qsymia 15 mg/92 mg. ? Qsymia is contraindicated in the following conditions: , Glaucoma, Hyperthyroidism, During or within 14 days following the administration of monoamine oxidase inhibitors, Known hypersensitivity or idiosyncrasy to the sympathomimetic amines. ? Most common side effects/adverse reactions: paresthesia (tingling, numbness), dizziness, dysgeusia, insomnia, constipation, and dry mouth. Qsymia can cause an increase in resting heart rate. Regular measurement of resting heart rate is recommended for all patients taking Qsymia, especially patients with cardiac or cerebrovascular disease or when initiating or increasing the dose of Qsymia. Patients should inform healthcare providers of palpitations or feelings of a racing heartbeat while at rest during Qsymia treatment. For patients who experience a sustained increase in resting heart rate while taking Qsymia, the dose should be reduced or Qsymia discontinued. Stop use if you experience: ? Sustained heart rate elevations that are not improving even with lowering the dosage. ? Emergent/worsening depression, suicidal thoughts or behaviors ? Important side effects (e.g., cognitive dysfunction, glaucoma, metabolic acidosis, kidney stones): Consider lowering dose or discontinuing. Limitation of use: It is not known if Qsymia changes your risk of heart problems, stroke, or due to heart problems or stroke. Please continue to monitor your heart health closely while taking Qsymia. [email or web address] Not available 01/12/2024 09:49:06 09/20/2024 [id number] Any requested follow-up visits are listed below in the Plan of Care section. Go directly to the [employer] scheduler conveyor at [email or web address] to book a time. Not available 09/19/2024 11:24:26 It was a pleasur e to meet with you today! We discussed your health concerns related to menopause and the management of your symptoms with the estrogen patch and progesterone. -------- Your Care Plan -------- Together, we decided that you would: - Continue using the 0.075 milligram estrogen patch as prescribed. This medication helps to manage your menopausal symptoms. - Continue taking progesterone at bedtime as prescribed. This medication is also used to manage your menopausal symptoms. - I will send in a 90-day supply of progesterone to your pharmacy ([facility]) to save you trips to the pharmacy. - Schedule a follow-up appointment in 6 months (on March 28 at 8:30 AM) to monitor your progress and adjust treatment as needed. If you need to change this appointment, you can do so. - Monitor your blood sugar levels as your hemoglobin A1c was slightly high. This does not mean you are diabetic, but it's important to keep an eye on it. Losing weight, as you have been doing, can help manage this. Please carefully review the care plan we have decided upon, specific information regarding your medication, and important details about your treatment detailed above. If you have any questions or concerns, or if your symptoms worsen, please do not hesitate to contact us. Thank you for trusting us with your care! Bettie DaynaAnnia Wilson, [facility] Not available 09/20/2024 08:46:17 Reason for Referral None Reported. Results Created Date Observation Date Name Description Value Unit Range Abnormal Flag Note LastModifiedBy Organization Detail LastModifiedTime 01/18/20 24 01/19/2024 COMP. METAB OLIC PANEL (14) glucose 80 mg/dL 70-99 Not Available [facility] ([facility]) [address] [place], [address], 01/22/2024 11:10:27 01/18/20 24 01/19/2024 COMP. METAB OLIC PANEL (14) BUN 16 mg/dL 6-24 Not Available [facility] ([facility]) [address] [place], [address], 01/22/2024 11:10:27 01/18/20 24 01/19/2024 COMP. METAB OLIC PANEL (14) creatinine 0.95 mg/dL 0.57-1 .00 Not Available [facility] ([facility]) [address] [place], [address], 01/22/2024 11:10:27 01/18/20 24 01/19/2024 COMP. METAB OLIC PANEL (14) eGFR 71 mL/mi n/1.7 3 >59 Not Available [facility] ([facility]) [address] [place], [address], 01/22/2024 11:10:27 01/18/20 24 01/19/2024 COMP. METAB OLIC PANEL (14) BUN/creatini ne ratio 17 9-23 Not Available [facility] ([facility]) [address] [place], [address], 01/22/2024 11:10:27 01/18/20 24 01/19/2024 COMP. METAB OLIC PANEL (14) sodium 142 mmol/ L 134-14 4 Not Available [facility] ([facility]) [address] [place], [address], 01/22/2024 11:10:27 01/18/20 24 01/19/2024 COMP. METAB OLIC PANEL (14) potassium 4.1 mmol/ L 3.5-5. 2 Not Available [facility] ([facility]) [address] [place], [address], 01/22/2024 11:10:27 01/18/20 24 01/19/2024 COMP. METAB OLIC PANEL (14) chloride 107 mmol/ L 96-106 above high normal Not Available [facility] ([facility]) [address] [facility] [place], [address], 01/22/2024 11:10:27 01/18/20 24 01/19/2024 COMP. METAB OLIC PANEL (14) carbon dioxide, total 20 mmol/ L 20-29 Not Available [facility] ([facility]) [address] [facility] [place], [address], 01/22/2024 11:10:27 01/18/20 24 01/19/2024 COMP. METAB OLIC PANEL (14) calcium 9.0 mg/dL 8.7-10 .2 Not Available [facility] ([facility]) [address] [facility] [place], [address], 01/22/2024 11:10:27 01/18/20 24 01/19/2024 COMP. METAB OLIC PANEL (14) protein, total 5.7 g/dL 6.0-8. 5 below low normal Not Available [facility] ([facility]) [address] [facility] [place], [address], 01/22/2024 11:10:27 01/18/20 24 01/19/2024 COMP. METAB OLIC PANEL (14) albumin 4.1 g/dL 3.8-4. 9 Not Available [facility] ([facility]) [address] [facility], [place], [address], 01/22/2024 11:10:27 01/18/20 24 01/19/2024 COMP. METAB OLIC PANEL (14) globulin, total 1.6 g/dL 1.5-4. 5 Not Available [facility] ([facility]) [address] [facility] [place], [address], 01/22/2024 11:10:27 01/18/20 24 01/19/2024 COMP. METAB OLIC PANEL (14) A/G ratio 2.6 1.2-2. 2 above high normal Not Available [facility] ([facility]) [address] [facility], [place], [address], 01/22/2024 11:10:27 01/18/20 24 01/19/2024 COMP. METAB OLIC PANEL (14) bilirubin, total <0.2 mg/dL 0.0-1. 2 Not Available [facility] ([facility]) [address] [facility], [place], [address], 01/22/2024 11:10:27 01/18/20 24 01/19/2024 COMP. METAB OLIC PANEL (14) alkaline phosphatase 58 IU/L 44-121 Not Available [facility] ([facility]) [address] [facility], [place], [address], 01/22/2024 11:10:27 01/18/20 24 01/19/2024 COMP. METAB OLIC PANEL (14) AST (SGOT) 18 IU/L 0-40 Not Available [facility] ([facility]) [address] [facility] [place], [address], 01/22/2024 11:10:27 01/18/20 24 01/19/2024 COMP. METAB OLIC PANEL (14) ALT (SGPT) 9 IU/L 0-32 Not Available [facility] ([facility]) [address] [facility], [place], [address], 01/22/2024 11:10:27 01/18/20 24 01/19/2024 LIPID PANEL WITH LDL/H DL RATIO cholesterol, total 145 mg/dL 100-19 9 Not Available [facility] ([facility]) [address] [facility], [place], [address], 01/22/2024 11:10:28 01/18/20 24 01/19/2024 LIPID PANEL WITH LDL/H DL RATIO triglyceride s 73 mg/dL 0-149 Not Available [facility] ([facility]) [address] [place], [address], 01/22/2024 11:10:28 01/18/20 24 01/19/2024 LIPID PANEL WITH LDL/H DL RATIO HDL cholesterol 55 mg/dL >39 Not Available [facility] ([facility]) [address] [place], [address], 01/22/2024 11:10:28 01/18/20 24 01/19/2024 LIPID PANEL WITH LDL/H DL RATIO VLDL cholesterol joaquin 14 mg/dL 5-40 Not Available [facility] ([facility]) [address] [place], [address], 01/22/2024 11:10:28 01/18/20 24 01/19/2024 LIPID PANEL WITH LDL/H DL RATIO LDL chol calc ([facility]) 76 mg/dL 0-99 Not Available [facility] (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) [address] [place], [address], 01/22/2024 11:10:28 01/18/20 24 01/19/2024 LIPID PANEL WITH LDL/H DL RATIO LDL/HDL ratio 1.4 ratio 0.0-3. 2 LDL/H DL Ratio Men Women 1/2 Avg.R isk 1.0 1.5 Avg.R isk 3.6 3.2 2X Avg.R isk 6.2 5.0 3X Avg.R isk 8.0 6.1 Not Available [facility] ([facility]) [address] [facility], [place], [address], 01/22/2024 11:10:28 01/18/20 24 01/22/2024 INSUL IN #9 insulin #9 1.9 uIU/m L 9509 Not Available [facility] [address] [place], [address], 01/22/2024 11:10:29 01/18/20 24 01/19/2024 HEMOG LOBIN A1C hemoglobin A1C 5.7 % 4.8-5. 6 above high normal Predi abete s: 5.7 - 6.4 Diabe pinky: >6.4 Glyce moe contr ol for adult s with diabe pinky: <7.0 Not Available [facility] ([facility]) [address] [facility], [place], [address], 01/22/2024 11:10:30 Result Notes None recorded. Problems Name Problem SNOMED Code Status Onset Date Resolution Date Notes Provider Name and Address Organization Details Recorded Time Fatigue 31556565 Active 2023 [place] [address] [place], [address], [facility] [employer] [facility] 4 08:49:32 Abnormal weight gain 521216084 Active 2023 [place] [address] [place], [address], [facility] 4 08:49:32 Menopausal symptom 02278531 Active 2022 [place] [address] [place], [address], [facility] [employer] [facility] [employer] [facility] 3 07:48:31 Sleep pattern disturbance 28421913 Active 2022 [place] [address] [place], [address], [facility] 3 08:23:00 Menopausal syndrome 926633439 Active 2024 [place] [address] [place], [address], [facility] 5 08:48:11 Seasonal affective disorder 126917277 Active 2022 [place] [address] [place], [address], [facility] 3 08:53:53 Problem Notes None recorded. Procedures Surgical History Date Name Laterality Status Provider Name and Address Organization Details Recorded Time 4 Date of Last [place] [address] [place], [address], [facility] 09/20/2024 08:24:47 4 Date of Last [place] [address] [place], [address], [facility] 09/19/2024 11:24:53 3 Date of Last [place] [address] [place], [address], [facility] 09/20/2024 08:24:47 Imaging Results None recorded. Procedure Notes None recorded. Medical Equipment None Reported. Allergies No known drug allergies Medications Name Sig Start Date Stop Date Status Note LastModified by Organization Details LastModified Time estradiol 0.075 mg/24 hr semiweekly transdermal patch APPLY 1 PATCH TRANSDERM ALLY TWICE A WEEK 2024 active Not Available Not Available Not Avai lable metronidazo le 0.75 % (37.5 mg/5 gram) vaginal gel USE 1 APPLICATO RFUL VAGINALLY BEDTIME FOR 5 DAYS 09/20 completed Not Available Not Available Not Available Vivelle-Dot 0.05 mg/24 hr transdermal patch Apply 1 patch twice a week by transderm al route. 11/30 completed Not Available Not Available Not Available Gas Relief Extra Strength 125 mg capsule PLEASE SEE ATTACHED FOR DETAILED DIRECTION S active Not Available Not Available No t Available bisacodyl 5 mg tablet,hossein yed release TAKE 4 TABLETS BY MOUTH ONCE FOR 1 DAY TAKE AT NOON THE DAY BEFORE COLONOSCO PY active Not Available Not Available No t Available naproxen 500 mg tablet TAKE 1 TABLET BY MOUTH TWICE DAILY active Not Available Not Available No t Available progesteron e micronized 100 mg capsule TAKE 1 CAPSULE BY MOUTH EVERY DAY AT BEDTIME FOR 90 DAYS 2024 active Not Available Not Available Not Avai lable cyclobenzap rine 5 mg tablet TAKE 1 TABLET BY MOUTH 3 TIMES A DAY NEEDED FOR MUSCLE SPASM active Not Available Not Available No t Available GaviLyte-G 236 gram-22.74 gram-6.74 gram-5.86 gram oral solution TAKE 240 ML ORALLY EVERY 10 MINS PER PREP INSTRUCTI ONS GIVEN BY GI OFFICE. UNTIL STOOLS RUN CLEAR 09/20 completed Not Available Not Available Not Available Krill Oil ([place] 3 and 6) active Not Available Not Available Not Available vitamin D3 125 mcg (5,000 unit)-folic acid 1 mg tablet active Not Available Not Available Not Available Zepbound 2.5 mg/0.5 mL subcutaneou s pen injector INJECT 2.5 MG (0.5 ML) SUBCUTANE OUSLY WEEKLY F4W active Not Available Not Available No t Available Vitals Date Recorded Body weight Body mass index (BMI) Body height Provider Name and Address Organization Details Last Updated DateTime 01/12/2024 12543.44 g 33.1 kg/m2 167.64 [place] [address] [place], [address], [facility] 01/12/2024 08:41:06 Social History None recorded. Functional Status None recorded. Mental Status None recorded. Family History Relationship Description Onset Age of this Age Resolved Age Notes LastModified by Organization Details LastModified Time Father Ischemic stroke Not available 2024 08:24:47 Father Heart disease Not available 2024 08:24:47 Medical History No medical history recorded. Gynecological History Statement/Question Response Date of Last Pap Smear 03/15/2023 Date of Last Colonoscopy 11/10/2023 Date of Last Mammogram 03/15/2024 Approximate Date of LMP 07/14/19 Hormone Replacement Therapy Yes Obstetrics History GPAL:G 0 P 0 0 0 0 Past Encounters Encounter ID Performer Location Encounter Start Date Encounter Closed Date Diagnosis/Indication Diagnosis SNOMED-CT Code Diagnosis ICD10 Code Diagnosis Note [id number] Rosa Maria Osorio NP Main Office [address] [place] [address] 05/19/2023 07:00:18 05/22/2023 06:36:12 Menopausal symptom 06502312 N95.1 - Patient's symptoms of brain fog, hot flashes, night sweats, and sleep disturbanc es are consistent with menopausal and female climacteri c states. LMP 5 years ago.- Initiated hormone replacemen t therapy (HRT), including estrogen and progestero ne. The estrogen will be administer ed via a patch on the patient's abdomen, changed twice a week, while the progestero ne will be taken as a pill every night. This treatment aims to alleviate the patient's menopausal symptoms and improve her quality of life.- Educated the patient about the potential side effects of HRT, including headaches, breast tenderness , bloating, and spotting. Assured the patient that these side effects are typically mild and temporary. - Scheduled a follow-up appointmen t in one month to assess the patient's response to HRT and make any necessary adjustment s to the treatment plan.- Informed the patient about the long-term benefits of HRT, including bone health, cardiovasc ular protection , and potential reduction of dementia risk.- Encouraged the patient to reach out via the patient portal with any questions or concerns in the interim.-R eviewed self-help strategies (dietary changes/ex ercise/acc upuncture/ etc.), herbal and other OTC therapies, hormonal options as well as other medication s used to treat common menopausal symptoms.- Discussed the risks, benefits and potential side effects and bleeding patterns with use of HRT. Reviewed the risk implicatio ns with short term vs middle or intermediate school principal use. [id number] Rosa Maria Osorio NP Main Office [address] [place] [address] 06/16/2023 07:00:11 06/19/2023 08:00:28 Menopausal symptom 76528567 N95.1 - The patient's symptoms, including hot flashes, night sweats, and brain fog, are consistent with menopausal and female climacteri c states.- The current treatment plan includes increasing the dosage of the estradiol patch to 0.05 and maintainin g the current progestero ne dosage.- The patient has been educated about potential side effects of the medication , including headaches and breast tenderness .- A follow-up appointmen t has been scheduled in four to six weeks to assess the effectiven ess of the treatment plan and to make further adjustment s if necessary. Sleep gwen lauro disturbance [id number] G47.9 - Patient's reported sleep disturbanc es, including frequent awakenings during the night, are consistent with insomnia.- The current treatment plan includes adjusting the dosage of the estradiol patch to 0.05 to potentiall y improve sleep quality.- The patient will continue to monitor her sleep patterns and report any changes at the next appointmen t.- A follow-up appointmen t has been scheduled in four to six weeks to assess the effectiven ess of the dosage adjustment . [id number] Rosa Maria Osorio NP Main Office [address] [place] [address] 07/14/2023 07:30:11 07/17/2023 04:36:38 Menopausal symptom [id number] N95.1 - The patient's recent increase in hunger and brain fog may be related to the increase in estrogen dosage from 0.0375 to 0.05.- Plan to continue the current dosage for another four weeks to see if symptoms improve with time.- If symptoms persist, consider reducing the estrogen dosage back to 0.0375.- Discussed the possibilit y of adding non-hormon al medication s to the regimen to help with mood, energy, and appetite control if symptoms persist. Sleep gwen lauro disturbance [id number] G47.9 - The patient reports waking up frequently during the night, which may be contributi ng to daytime fatigue and decreased energy.- Encouraged the patient to focus on improving sleep hygiene.- If sleep disturbanc es persist, consider evaluating for potential sleep disorders or adjusting hormone replacemen t therapy. Seasonal a ffective disorder [id number] F33.9 - patient has known hx of seasonal affective disorder.- Plan to monitor symptoms over the next four weeks.- If symptoms persist or worsen, consider adding non-hormon al medication s to help with mood and energy levels such as SSRI, SNRI or wellbutrin - Scheduled a follow-up appointmen t in August to reassess symptoms and adjust treatment plan as necessary. [id number] Rosa Maria Osorio NP Main Office [address] [place] [address] 09/22/2023 06:30:02 09/25/2023 05:54:15 Menopausal symptom [id number] N95.1 - Patient is currently on a regimen of 0.05 patches, which was an increase from the previous dose. However, due to a lapse in taking the medication and current illness, it is difficult to accurately assess the effectiven ess of the increased dose.- Advised to continue with the current regimen including estrogen and progestero ne- Scheduled a follow-up appointmen t in November to discuss the patient's condition and any necessary adjustment s to the treatment plan. Seasonal a ffective disorder [id number] F33.9 - Patient reports feeling less active and experienci ng increased hunger during the winter months, as well as hx of seasonal affective disorder.- Encouraged the patient to continue taking vitamin D supplement s.- can consider alternativ e such as SSRI in future if sx persist/wo rsen- Will continue monitoring and reassess the patient's condition during the follow-up appointmen t in November. [id number] Rosa Maria Osorio NP Main Office [address] [place] [address] 12/01/2023 07:02:13 12/04/2023 06:08:21 Menopausal symptom [id number] N95.1 - Patient has been on estrogen and progestero ne therapy, but experience d a delay in obtaining the prescripti on and was off the medication for about a month.- Patient reports experienci ng irritabili ty and mood changes.- Plan to increase estrogen dose to improve mood and energy levels.- Will send a one-month supply of the new dose to the local pharmacy with no refills.- Patient will consider switching to [facility] mail order pharmacy for future refills.- Scheduled a follow-up appointmen t on January 11 at 8:30 am to assess the effectiven ess of the increased estrogen dose and discuss any further treatment options if needed. [id number] Rosa Maria Osorio NP Main Office [address] [place] [address] 01/12/2024 07:33:02 01/15/2024 06:15:50 Menopausal symptom [id number] N95.1 - Patient experience d breast tenderness after increasing estrogen patch dose to 0.075- Discussed potential options, including trying a 0.06 climara weekly patch or continuing with the current dose- Patient decided to continue with the 0.075 patch and monitor symptoms- Recommende d vitamin E and evening primrose oil capsules to help with breast tenderness - Plan to follow up in one month to assess the effectiven ess of the treatment and any changes in symptoms- Risks, benefits, and alternativ es of the medication s and treatment plan prescribed today were discussed, and patient expressed understand ing. Plan follow-up as discussed or as needed if any worsening symptoms or change in condition. Abnormal weight gain [id number] R63.5 - Patient expressed concern about weight gain and interest in weight loss medication s- BMI 33- Discussed short-term option of Wellbutrin for weight loss- Ordered labs to check for insulin resistance and A1C levels- Patient will have labs done at [facility] in [place]- Scheduled follow-up appointmen t on February 15 at 9:30 am to review lab results and discuss weight loss medication options [id number] Btetie Wilson NP Main Office [address] [place] [address] 09/20/2024 07:36:40 09/20/2024 19:31:31 Menopausal syndrome [id number] N95.1 - Patient reports resolution of breast tenderness with the current regimen of Estradiol 0.075 mg patch and oral Progestero ne.- Continue current treatment with Estradiol 0.075 mg patch and oral Progestero ne at bedtime.- Educated patient on the importance of adherence to hormone replacemen t therapy and monitoring for any new symptoms.- Refill prescripti ons for Estradiol 0.075 mg patch and oral Progestero ne for a 90-day supply to be sent to [facility] on [place], [place].- Scheduled follow-up appointmen t in 6 months to monitor symptoms and treatment efficacy. Prediabetes [id number] R7 3.03 - Hemoglobin A1c slightly elevated at last check in January, but glucose and insulin levels were within normal limits.- Patient has been advised of the slight elevation and the importance of weight management .- Patient reports weight loss since last visit and is scheduled to follow up with her primary care physician in February.- Continue to monitor Hemoglobin A1c and glucose levels at regular intervals. - Educated patient on lifestyle modificati ons including diet and exercise to manage pre-diabet es. Health Concerns Section Related Observation LastModified by Organization Detai ls LastModified Time None Recorded Concern Status LastModified by Organization Details LastModified Time None Recorded Advance Directives Directive None Recorded Payers Insurance Date Sequence Insurance Name Policy Number Policy Acosta Covered Member ID Acosta Member ID Guarantor Name 10/08/2024 1 [employer] [id number] Luis Morgan [id number] Keena marshall Notes Date Note Type Note Provider Name and Address Organization Details Recorded Time 07/14/2023 text/html Virtual Visit Attestation Modality: Video Provider Location: Home Patient Location: Home Patient State: [place] [? ] I have obtained consent from the patient for use of autoscribe. Patient is a 52 year old female presenting for follow up visit. The patient is currently on hormone replacement therapy (HRT). Hormone Replacement Therapy:- Patient has been on HRT including estradiol patch and progesterone since 05/19/23.- Four weeks ago, the estrogen dosage was increased from 0.0375 to 0.05.- No reported bleeding or spotting.- Last menstrual period was in June 2018.- Pt notes a hx of seasonal affective disorder which has been effecting her mood, feeling more fatigued than normal lately.- Patient reports feeling more hungry over the past two weeks, unsure if this increased hunger is related to the increased estrogen dosage or other factors. Sleep Disruption:- Patient reports disrupted sleep patterns over the past two weeks.- Patient wakes up every two hours during the night, feeling it's time to get up.- Despite waking up frequently, patient does not report experiencing hot flashes or night sweats.- Patient wakes up at 4 a.m. every morning, except for Fridays, Saturdays, and Sundays, when she tries to stay in bed until 7 a.m., despite being awake. Other Symptoms:- Patient reports feeling drowsy after lunch, which is typically between 1 and 2 p.m.- Patient reports feeling tired and has been cutting her workouts short due to lack of energy. Weight Management:- Patient reports trying to lose weight but has been eating at odd times due to increased hunger.- Patient tries to eat within a certain window of time. Menstrual History:- Patient's last period was in June 2018, which she correlates with when she stopped [place] [address] [place], [address], [facility] 08/01/2023 14:29:35 09/22/2023 text/html Virtual Visit Attestation Modality: Video Provider Location: Home Patient State: [place] [? ] I have obtained consent from the patient for use of autoscribe. Patient is a 52 year old female presenting for follow up of HRT. Hormone Replacement Therapy:- Patient has been using 0.05 estrogen patches and 100mg progesterone- She reports a period of approximately three weeks to a month when she was not on the therapy due to running out of refills.- Patient mentions that she felt more hungry when she started the 0.05 patches, but is unsure if this is still an issue.- She is considering whether to change the dose or type of therapy, but plans to wait until she recovers from her current illness to make a decision. Common Cold and Potential Sinus Infection:- Patient reports having been unwell since , with symptoms suggestive of a common cold.- Patient mentions the possibility of a sinus infection due to the lingering nature of her symptoms. Other Concerns:- Patient mentions that winter is a difficult time for her due to lack of sunlight, which may be affecting her mood and appetite.- She is currently taking vitamin D supplements.- She plans to reassess her symptoms and the effectiveness of her hormone replacement therapy in mid-November[place] [address] [place], [address], [facility] 09/22/2023 16:04:17 12/01/2023 text/html Virtual Visit Attestation Modality: Video Provider Location: Home Patient [place]: [place] [? ] I have obtained consent from the patient for use of autoscribe. Patient is a 52 year old female presenting for follow up of HRT. Patient is a 53 year old female presenting with shoulder pain and irritability, and discussing hormone replacement therapy. Shoulder Pain:- Patient reports experiencing shoulder pain, which is particularly severe during certain movements.- She is able to lift her arm above her head, but this action causes some discomfort.- She has applied a thermal patch for relief but has not sought further medical attention due to time constraints related to planning her 's 49th birthday constitution party. Irritability:- Patient reports feeling irritable and stressed, which she describes as a recent change in her mood.- She mentions feeling salty and grouchy, and has noticed a decrease in her patience levels.- She has also noticed a change in her interactions with her coworkers- She expresses concern about these changes in her mood and behavior, and is unsure of the cause. Hormone Replacement Therapy:- Patient has been on hormone replacement therapy since May, with an increase in her estrogen dosage in June.- She reports having difficulty getting her prescription filled at her local [facility], resulting in her being off the medication for about a month.- She has been back on the medication for a couple of months since September.- She reports no hot flashes, but has been feeling super irritable.- She is unsure if the irritability is due to the medication, the winter season, or other factors.- She is open to increasing her estrogen dosage to see if it improves her mood [place]. [place] [address] [place], [address], [facility] [employer] 12/02/2023 16:38:36 01/12/2024 text/html Virtual Visit Attestation Modality: Video Provider Location: Home Patient State: [place] [? ] I have obtained consent from the patient for use of [employer]. Patient is a 53 year old female presenting with concerns about increased nipple tenderness after increasing her estrogen dose, ongoing shoulder pain, and recent weight gain. Estrogen Therapy:- Patient reports experiencing increased breast b/l tenderness after increasing her estrogen dose from 0.05 to 0.075.- She notes that the higher dose has improved her energy levels and cognitive function. Shoulder Pain:- Patient has been experiencing ongoing shoulder pain, which has been diagnosed as a rotator cuff injury.- She has been prescribed sodium naproxen 500mg twice a day for a month to manage the pain, but reports feeling sick to her stomach from the medication.- She has been referred for physical therapy but has had difficulty scheduling an appointment due to administrative issues. Weight Gain:- Patient reports recent weight gain and is currently weighing 205 lbs at a height of 5'6 .- She expresses dissatisfaction with her current weight, noting it is possibly the highest she has ever been.- Despite working out five days a week and maintaining a relatively healthy diet, she has been unable to lose weight.- She is interested in exploring weight loss medications and is considering Wellbutrin, but is hesitant about committing to long-term medication use.- She is due to have blood work done to check for insulin resistance and average glucose levels before deciding on a weight loss medication. Other:- Patient mentions her has recently started a weight loss medication, which has sparked her interest in exploring similar options.- She also mentions having a wedding in April, which is adding to her stress levels. PMHx:- Rotator cuff injury Current Meds:- Estrogen 0.075 patch- Sodium Naproxen 500mg twice a day Social Hx:- Physical activity: Works out five days a week- Diet habits: Eats decently, [place] [address] [place], [address], [facility] [place] [employer] 01/15/2024 13:39:22 09/20/2024 text/html Patient is a 53 year old female presenting for a follow-up visit to discuss her menopausal symptoms and weight management. Menopausal Symptoms:- Patient has been using a 0.075 milligram patch for her menopausal symptoms.- She initially experienced breast tenderness with the patch, but this has since resolved.- She also takes progesterone at bedtime.- She reports that these treatments are working well for her.- She mentions some cognitive difficulties since menopause, such as struggling to find the right words. Weight Management:- Patient's hemoglobin A1c was slightly elevated in her last labs, indicating a risk for diabetes.- Her primary care doctor had previously mentioned that she was pre-diabetic and needed to lose weight.- She reports that she has since lost some weight and is not due for a follow-up with her primary care doctor until February. Medication Refills:- Patient is due for a refill of her progesterone and her patch.- She typically gets a 90-day supply from [facility] on [address] in [place], [place]. Follow-up Appointments:- Patient prefers Monday appointments due to her work schedule from Monday to .- She is scheduled for a follow-up appointment in 6 months, on March 28 at 8:30 AM. PMHx:- Pre-diabetes Current Meds:- 0.075 milligram pack- Progesterone milligrams at bedtime Virtual Visit AttestationModality: VideoProvider Location: Home Patient Location: Home Patient State: JANET Wilson, [employer] [address] [place], [address], [facility] 09/20/2024 08:48:22 OBGyn Episode No OBEpisode recorded.
[2025-02-18 07:33] LABS: MANUAL DIFF FLAG NO
[2025-02-18 07:48] LABS: Basophils Percent Auto 0.8 % (0-2); Eosinophils Absolute Auto 0.1 X10*3/uL (0.0-0.4); Hematocrit 37.6 % (37.0-47.0); Hemoglobin 12.4 g/dl (12.0-16.0); Imm Gran Abs Auto 0.01 X10*3/uL (0.00-0.03); Imm Gran Pct Auto 0.2 % (0.0-0.4); Lymphocytes Absolute Auto 2.4 X10*3/uL (1.2-4.9); Lymphocytes Percent Auto 47.3 % (20-40); Mean Corpuscular Hemoglobin 30.3 pg (27.0-33.0); Mean Corpuscular Volume 91.9 fL (80.0-98.0); Mean Platelet Volume 9.5 fL (9.4-12.3); Monocytes Absolute Auto 0.4 X10*3/uL (0.1-1.2); Monocytes Percent Auto 7.8 % (2-11); Neutrophils Absolute Auto 2.1 x10*3/uL (2.0-8.3); Neutrophils Percent Auto 41.9 % (45-73); Platelet Count 269 X10*3/uL (160-400); Red Blood Count 4.09 X10*6/uL (4.20-5.50)
[2025-02-18 08:20] LABS: Alanine Aminotransferase 19 U/L (0-31); Albumin Level 4.3 g/dL (3.5-5.0); Alkaline Phosphatase 69 U/L (39-117); Anion Gap 12 (12-20); Aspartate Amino Transferase 24 U/L (5-31); Bilirubin Total 0.5 mg/dL (0.0-1.0); Blood Urea Nitrogen 19 mg/dL (9-16); Calcium 9.4 mg/dL (8.4-10.2); Carbon Dioxide 26 mmol/L (22-29); Chloride 108 mmol/L (96-108); Cholesterol 205 mg/dL (<200); Estimated Glomerular Filt Rate > 60; Glucose Random 89 mg/dL (60-115); HDL Cholesterol 65 mg/dL (>40); LDL Cholesterol Calculated 124 mg/dL (<100); Potassium 3.8 mmol/L (3.3-5.1); Sodium 142 mmol/L (135-145); Total Protein 6.7 g/dL (6.5-8.0); Triglycerides 80 mg/dL (<150)
[2025-02-18 08:40] LABS: Free T4 (Free Thyroxine) 0.95 ng/dL (0.71-1.85); Thyroid Stimulating Hormone 3.06 uIU/mL (0.32-4.0); Vitamin D 25-OH Total 38.6 ng/mL (>30)
[2025-02-18 08:47] LABS: Folate 13.1 ng/mL (> or = 4.0); Vitamin B12 873 pg/mL (200-900)
== END 2025-02-18 07:12 | disposition home or self-care (01) ==
LOC: HO.LAB 07:11
PROVIDERS: PCP Internal Medicine
DX: E78.00 Pure hypercholesterolemia, unspecified (principal); E66.9 Obesity, unspecified
CPT/HCPCS: 36415; 80053; 80061; 82306; 82607; 82746; 84439; 84443; 85025

== ENCOUNTER 2025-03-11 08:25 | Outpatient (REF) | payer BC, SELFPAY ==
[2025-03-11 15:50] LABS: Folate 13.9 ng/mL (> or = 4.0); Vitamin B12 1102 pg/mL (200-900)
== END 2025-03-11 08:26 | disposition home or self-care (01) ==
LOC: HO.HKASLDS 08:25
PROVIDERS: PCP Internal Medicine; Visit Provider Psychiatry & Neurology Neurology
DX: R41.89 Other symptoms and signs involving cognitive functions and awareness (principal); F32.A Depression, unspecified
CPT/HCPCS: 36415; 82607; 82746; 85652

== ENCOUNTER 2025-03-11 08:25 | Outpatient (AMB) | payer BC, SELFPAY ==
--- OUTSIDE RECORDS SUMMARY | 2025-03-11 08:30 | XMS_ITS | Data Portability ---
Author Organization [facility] in Office Address [address] [place] [address] Assessment Encounter Date Assessment Date Assessment LastModified by Organization Details LastModified Time 07/14/2023 07/14/2023 I spent 30 minutes of vlqo-qt-ozyg counselling and care coordination time with the patient. This includes reviewing medical records (medical, surgical, family and social history); updating medication and allergy information in the electronic health record; and ordering labs, medications, and education materials to continue patient care. [email or web address] Not available 07/14/2023 08:56:24 09/22/2023 09/22/2023 I spent 20 minutes of ktxe-mc-jphe counselling and care coordination time with the patient. This includes reviewing medical records (medical, surgical, family and social history); updating medication and allergy information in the electronic health record; and ordering labs, medications, and education materials to continue patient care. [email or web address] Not available 09/22/2023 08:24:53 12/01/2023 12/01/2023 I spent 25 minutes of eslj-ug-thal counselling and care coordination time with the patient. This includes reviewing medical records (medical, surgical, family and social history); updating medication and allergy information in the electronic health record; and ordering labs, medications, and education materials to continue patient care. [email or web address] Not available 12/01/2023 14:15:05 01/12/2024 01/12/2024 I spent 30 minutes of vqzt-wd-arkz counselling and care coordination time with the patient. This includes reviewing medical records (medical, surgical, family and social history); updating medication and allergy information in the electronic health record; and ordering labs, medications, and education materials to continue patient care. [email or web address] Not available 01/12/2024 09:48:03 09/20/2024 09/20/2024 I spent 15 minutes of tpkk-cv-vuwg counselling and care coordination time with the [...] Go To The Location Of Their Choice, [facility] [place] 01/22/2024 11:10:27 HbA1c (hemoglob in A1c), blood 2023 024 EMILIO [facility] (Centralized Electronic Ordering - All Locations), Patient Can Go To The Location Of Their Choice, [facility] [place] 01/22/2024 11:10:30 lipid panel, serum 2023 024 EMILIO [facility] (Centralized Electronic Ordering - All Locations), Patient Can Go To The Location Of Their Choice, [facility] [place] 01/22/2024 11:10:28 insulin, serum - fasting please 2023 024 WHITEFACE [facility] (Centralized Electronic Ordering - All Locations), Patient Can Go To The Location Of Their Choice, [facility] [place] 01/22/2024 11:10:29 Referral None recorded. Procedures None recorded. Surgeries None recorded. Imaging None recorded. Medication Orders estradiol 0.075 mg/24 hr semiweekl y transderm al patch 2024 025 [facility]acy #[id number], [address] [place], [address], 09/20/2024 08:45:59 progester one micronize d 100 mg capsule 2024 025 [facility]armacy #[id number], [address] [place], [address], 09/20/2024 08:45:59 Vivelle-D ot 0.075 mg/24 hr transderm al patch 2023 024 EMILIO [facility]/Pharmacy #[id number], [address] [place], [address], 12/01/2023 08:15:10 Patient TargetsNo targets recorded. Patient Instructions Encounter Date Encounter Id Patient Instructions Last Modified By Organization Details Last Modified Time 07/14/2023 [id number] Any requested follow-up visits are listed below in the Plan of Care section. Go directly to the [employer] senior power scheduler at [email or web address] to book a time. Not available 07/14/2023 08:23:20 It was a [...] you for trusting us with your care! [email or web address] Not available 07/14/2023 08:53:43 09/22/2023 [id number] Any requested follow-up visits are listed below in the Plan of Care section. Go directly to the [employer] senior power scheduler at [email or web address] to book a time. [email or web address] Not available 09/21/2023 15:17:51 It was a [...] you for trusting us with your care! [email or web address] Not available 09/22/2023 08:26:27 12/01/2023 [id number] Any requested follow-up visits are listed below in the Plan of Care section. Go directly to the [employer] senior power scheduler at [email or web address] to book a time. [email or web address] Not available 12/01/2023 08:02:55 It was a Cureatr e to meet with you today! We discussed your health concerns related to menopause, including mood changes and irritability. -------- Your Care Plan -------- Together, we decided that you would: - Increase your estrogen dosage. This adjustment is aimed at improving your mood and energy levels. We will monitor this exchange mechanic the next month to see how it affects your symptoms. - Schedule a follow-up appointment for January 11 at 8:30 am. This will allow us to assess how you're responding to the increased estrogen dosage. - Consider using a mail order pharmacy, specifically [facility], to avoid delays in receiving your medication. You can initiate this change by sending me a portal message when you're due for a refill. Please carefully review the care plan we have decided upon, specific information regarding your medication, and important details about your treatment detailed below. Thank you for trusting us with your care! [email or web address] Not available 12/01/2023 14:15:31 01/12/2024 [id number] Any requested follow-up visits are listed below in the Plan of Care section. Go directly to the [employer] senior power scheduler at [email or web address] to book a time. [email or web address] Not available 01/12/2024 08:33:09 It was a [...] dull the aching and discomfort. - Take hanv-abs-hytbunw vitamin E and evening primrose oil capsules, which can help with breast and nipple tenderness. These should be taken orally. - [facility] in [place]. This will help us check for any insulin resistance and evaluate your average glucose level (A1C). You can call them at [phone] to make an appointment. If they do [...] - Hydration: Drink 100 oz water daily Exercise: -Aim for 150-200 minutes of vigorous exercise/week (at least 30 mins x 5 days a week) -Include strength training to maintain and build muscle Nutritional Consult: Let me know if you would like a referral to a etcher enameling to help you with more detailed diet instruction and education. There are two virtual options for etcher enameling/dietici an services that take insurance: Nourish: https://www.usenouri HALFPOPS.[employer] HealthLoft: https://Bouncefootball .Morris [employer]ative Akkermansia (probiotic): Studies: https://www.ncbi.nlm .nih.gov/pmc/article s/XMA53603314 and https://www.ncbi.nlm .nih.gov/pmc/article s/UGA3575927 Where to buy (this is just one option, does not have to be this brand): https://TerraLUX/products/pendsteven um-akdeepaksia FIBER: Increased fiber intake can be [...] to have the least contamination from lead (https://www.Nomiku rlab.com/reviews/psy llium-supplements/ps yllium/). BERBERINE: Berberine is a [...] with pre-diabetes, diabetes, PCOS and hormonal irregularities. The dosage of Metformin is titrated up [...] optimal dosage for you and your body. Ideally, taking Metformin before meals can help [...] Efficacy is the same with either method. Common side effects include: nausea/vomiting, diarrhea, gas/bloating, stomach pain, headache and fatigue. Bothersome side-effects typically improve over the course of the first few weeks of taking Metformin. It is recommended to supplement daily with Vitamin B12 while on Metformin, as this medication can deplete your B12 stores. Please monitor your Vitamin B12 levels every 3-6 months to ensure that you are absorbing the supplementation. It is recommended to avoid excessive alcohol use while taking Metformin. Important Note: Lactic acidosis: Metformin associated lactic [...] Bariatric surgery increases risk for lactic acidosis. If you experience any concerning side effects, [...] Anti-Aging Therapy: Is It for Everyone? Link: https://www.Lotaris.Morris Innovative/science/joseph stephens/pii/M733059525 602472S Main Points (a review): Prolongs lifespan and healthspan in the invertebrate Caenorhabditis elegans and Mice as well as potentially human longevity Metformin regulates metabolic and non metabolic pathways in skeletal muscle and subcutaneous adipose tissues of older adults Link: https://onlinelibrar y.guillen.com/doi/epdf /10.1111/acel.86485? src=getftr Main Points: Studied~70-year-old participants (n=14) in a randomized, double-blind, placebo-controlled,community hospital trial in which they were treated [...] the Hallmarks of Aging Link: https://www.ncbi.nlm .nih.gov/pmc/article s/OCO2757255/ Metformin mechanism: improving nutrient-sensing, enhancing autophagy and intercellular communication, protecting against macromolecular damage, delaying stem-cell aging, modulating mitochondrial function, regulating emts, and lowering telomere attrition and senescence. GLP-1 AGONISTS: How Do GLP-1 Agonists Work to help with weight loss? These medications decrease hunger cues, turns off food chatter , increases early satiety, & slows gastric emptying so patients stay sutton longer. Videos about the mechanism of action of GLP-1 agonists: https://www.youtube. com/watch?v=KsfDQQSZ UsA https://www.youEdsbyube. com/watch?v=P6gt4A_3 Whs Coupons for Zepbound: [place] [address] to enroll for a digital starter kit to help them get started on Zepbound.The Digital Starter Kit provides tips for starting Zepbound, what to expect, reminder options, and additional resources. Tips for Taking GLP-1s: Note: MOUNJARO/ZEPBOUND are brand names for TIRZEPATIDE and OZEMPIC/WEGOVY are brand names for SEMAGLUTIDE. -You can take with or without food [...] follow the dosing regimen prescribed by your [facility] Weight Loss Expert. What to Do if You Miss a [...] outdoors for fresh air -Eat more slowly Important Safety Information Tirzepatide/Mounjaro /Zepbound/Semaglutid e/Ozempic/Wegovy may cause serious side effects, including: -Inflammation of your pancreas (pancreatitis). Stop using this medication and call your [facility] healthcare provider right away if [...] and common side effect. Talk to your [facility] provider about how to recognize and [...] patients with type 2 diabetes. Tell your [facility] healthcare provider if you have changes in [...] 911. You can also call / text 510 https://Lure Media Group. Promon/?utm_source=elliekristy duenas&utm_medium=web&ut m_campaign=onebox COMPOUNDED MEDICATIONS FOR WEIGHT: Available for patients who's insurance will not cover the cost of medications or who are not able to access these medications due to supply chain issues. Compounded Semaglutide or Tirzepatide can be prescribed to: [facility] Located in [address], [place], [place] Phone number is: Approximate Cost: Semaglutide/Cyanocob [...] NOT available for patients in the state [facility]) 1ml vial -$400 4ml vial -$1000 Supplies [...] these goals in mind. More info: -once [facility] receives the prescription they will be [...] This is the website for this medication: https://contrave.Morris Innovative Contrave is a medication that is FDA [...] mg capsule each morning x 10 weeks. After 12 weeks, if weight loss is less than 3% at the regular dosage you may increase to the next dose: Week 13-14: On the first day of week 13, start Qsymia 11.25 mg/69 mg x 2 weeks. Week 15+: Followed by monthly prescription of Qsymia 15 mg/92 mg. Qsymia is contraindicated in the following conditions: , Glaucoma, Hyperthyroidism, During or within 14 days following the administration of monoamine oxidase inhibitors, Known hypersensitivity or idiosyncrasy to the sympathomimetic amines. Most common side effects/adverse reactions: paresthesia (tingling, [...] Qsymia discontinued. Stop use if you experience: Sustained heart rate elevations that are not improving even with lowering the dosage. Emergent/worsening depression, suicidal thoughts or behaviors Important side effects (e.g., cognitive dysfunction, glaucoma, metabolic acidosis, kidney stones): Consider lowering dose or discontinuing. Limitation of use: It is not known if Qsymia changes your risk of heart problems, stroke, or due to heart problems or stroke. Please continue to monitor your heart health closely while taking Qsymia. [email or web address] Not available 01/12/2024 09:49:06 09/20/2024 [id number] Any requested follow-up visits are listed below in the Plan of Care section. Go directly to the [employer] senior power scheduler at [email or web address] to book a time. Not available 09/19/2024 [...] 90-day supply of progesterone to your pharmacy ([facility]) to save you trips to the pharmacy. [...] for trusting us with your care! Bettie Wilson, SOCIAL STUDIES TEACHER- Not available 09/20/2024 08:46:17 Reason for Referral None Reported. Results Created Date Observation Date Name Description Value Unit Range Abnormal Flag Note LastModifiedBy Organization Detail LastModifiedTime 01/18/20 24 01/19/2024 COMP. METAB OLIC PANEL (14) glucose 80 mg/dL 70-99 Not Available [facility] ([facility]) [address] [facility] [place], [address], 01/22/2024 11:10:27 01/18/20 24 01/19/2024 COMP. METAB OLIC PANEL (14) BUN 16 mg/dL 6-24 Not Available [facility] ([facility]) [address] [facility] [place], [address], 01/22/2024 11:10:27 01/18/20 24 01/19/2024 COMP. METAB OLIC PANEL (14) creatinine 0.95 mg/dL 0.57-1 .00 Not Available [facility] ([facility]) [address] [place], [address], 01/22/2024 11:10:27 01/18/20 24 01/19/2024 COMP. METAB OLIC PANEL (14) eGFR 71 mL/mi n/1.7 3 >59 Not Available [facility] ([facility]) [address] [facility] [place], [address], 01/22/2024 11:10:27 01/18/20 24 01/19/2024 COMP. METAB OLIC PANEL (14) BUN/creatini ne ratio 17 9-23 Not Available [facility] ([facility]) [address] [place], [address], 01/22/2024 11:10:27 01/18/20 24 01/19/2024 COMP. METAB OLIC PANEL (14) sodium 142 mmol/ L 134-14 4 Not Available [facility] ([facility]) [address] [place], [address], 01/22/2024 11:10:27 01/18/20 24 01/19/2024 COMP. METAB OLIC PANEL (14) potassium 4.1 mmol/ L 3.5-5. 2 Not Available [facility] ([facility]) [address] [place], [address], 01/22/2024 11:10:27 01/18/20 24 01/19/2024 COMP. METAB OLIC PANEL (14) chloride 107 mmol/ L 96-106 above high normal Not Available [facility] ([facility]) [address] [place], [address], 01/22/2024 11:10:27 01/18/20 24 01/19/2024 COMP. METAB OLIC PANEL (14) carbon dioxide, total 20 mmol/ L 20-29 Not Available [facility] ([facility]) [address] [place], [address], 01/22/2024 11:10:27 01/18/20 24 01/19/2024 COMP. METAB OLIC PANEL (14) calcium 9.0 mg/dL 8.7-10 .2 Not Available [facility] ([facility]) [address] [place], [address], 01/22/2024 11:10:27 01/18/20 24 01/19/2024 COMP. METAB OLIC PANEL (14) protein, total 5.7 g/dL 6.0-8. 5 below low normal Not Available [facility] ([facility]) [address] [place], [address], 01/22/2024 11:10:27 01/18/20 24 01/19/2024 COMP. METAB OLIC PANEL (14) albumin 4.1 g/dL 3.8-4. 9 Not Available [facility] ([facility]) [address] [place], [address], 01/22/2024 11:10:27 01/18/20 24 01/19/2024 COMP. METAB OLIC PANEL (14) globulin, total 1.6 g/dL 1.5-4. 5 Not Available [facility] ([facility]) [address] [place], [address], 01/22/2024 11:10:27 01/18/20 24 01/19/2024 COMP. METAB OLIC PANEL (14) A/G ratio 2.6 1.2-2. 2 above high normal Not Available [facility] ([facility]) [address] [facility], [place], [address], 01/22/2024 11:10:27 01/18/20 24 01/19/2024 COMP. METAB OLIC PANEL (14) bilirubin, total <0.2 mg/dL 0.0-1. 2 Not Available [facility] ([facility]) [address] [facility], [place], [address], 01/22/2024 11:10:27 01/18/20 24 01/19/2024 COMP. METAB OLIC PANEL (14) alkaline phosphatase 58 IU/L 44-121 Not Available [facility] ([facility]) [address] [facility], [place], [address], 01/22/2024 11:10:27 01/18/20 24 01/19/2024 COMP. METAB OLIC PANEL (14) AST (SGOT) 18 IU/L 0-40 Not Available [facility] ([facility]) [address] [facility], [place], [address], 01/22/2024 11:10:27 01/18/20 24 01/19/2024 COMP. METAB OLIC PANEL (14) ALT (SGPT) 9 IU/L 0-32 Not Available [facility] ([facility]) [address] [facility], [place], [address], 01/22/2024 11:10:27 01/18/20 24 01/19/2024 LIPID PANEL WITH LDL/H DL RATIO cholesterol, total 145 mg/dL 100-19 9 Not Available [facility] ([facility]) [address] [facility], [place], [address], 01/22/2024 11:10:28 01/18/20 24 01/19/2024 LIPID PANEL WITH LDL/H DL RATIO triglyceride s 73 mg/dL 0-149 Not Available [facility] ([facility]) [address] [facility], [place], [address], 01/22/2024 11:10:28 01/18/20 24 01/19/2024 LIPID PANEL WITH LDL/H DL RATIO HDL cholesterol 55 mg/dL >39 Not Available [facility] ([facility]) [address] [facility], [place], [address], 01/22/2024 11:10:28 01/18/20 24 01/19/2024 LIPID PANEL WITH LDL/H DL RATIO VLDL cholesterol joaquin 14 mg/dL 5-40 Not Available [facility] ([facility]) [address] [facility], [place], [address], 01/22/2024 11:10:28 01/18/20 24 01/19/2024 LIPID PANEL WITH LDL/H DL RATIO LDL chol calc ([facility]) 76 mg/dL 0-99 Not Available [facility] ([facility]) [address] [facility], [place], [address], 01/22/2024 11:10:28 01/18/20 24 01/19/2024 LIPID PANEL WITH LDL/H DL RATIO comment: SENIOR TAX ANALYST Not Available [facility] ([facility]) [address] [place], [address], 01/22/2024 11:10:28 01/18/20 24 01/19/2024 LIPID PANEL WITH LDL/H DL RATIO LDL/HDL ratio 1.4 ratio 0.0-3. 2 LDL/H DL Ratio Men Women 1/2 Avg.R isk 1.0 1.5 Avg.R isk 3.6 3.2 2X Avg.R isk 6.2 5.0 3X Avg.R isk 8.0 6.1 Not Available [facility] ([facility]) [address] [place], [address], 01/22/2024 11:10:28 01/18/20 24 01/22/2024 INSUL IN #9 insulin #9 1.9 uIU/m L 9509 Not Available [facility] [address] [facility], [place], [address], 01/22/2024 11:10:29 01/18/20 24 01/19/2024 HEMOG LOBIN A1C hemoglobin A1C 5.7 % 4.8-5. 6 above high normal Predi abete s: 5.7 - 6.4 Diabe pinky: >6.4 Glyce moe contr ol for adult s with diabe pinky: <7.0 Not Available [facility] ([facility]) [address] [facility], [place], [address], 01/22/2024 11:10:30 Result Notes None recorded. Problems Name Problem SNOMED Code Status Onset Date Resolution Date Notes Provider Name and Address Organization Details Recorded Time Fatigue 99116199 Active 2023 [place] [address] [address] [place], [address], [facility] 4 08:49:32 Abnormal weight gain 713708264 Active 2023 [place] [address] [address] [place], [place], 2, [facility] 4 08:49:32 Menopausal symptom 79211403 Active 2022 [place] [address] [address] [facility] 2, [facility] 3 07:48:31 Sleep pattern disturbance 34594232 Active 2022 Rosa [place] [address] [place], [place], 2, [facility] 3 08:23:00 Menopausal syndrome 959696765 Active 2024 [place] [address] [address] [place], [place], 2, [facility] 5 08:48:11 Seasonal affective disorder 749740201 Active 2022 [place] [address] [place], [place], 2, [facility] 3 08:53:53 Problem Notes None recorded. Procedures Surgical History Date Name Laterality Status Provider Name and Address Organization Details Recorded Time 4 Date of Last [place] [address] [place], [place], , [facility] 09/20/2024 08:24:47 4 Date of Last [place] [address] [place], [place], , [facility] 09/19/2024 11:24:53 3 Date of Last [place] [address] [place], [place], , [facility] 09/20/2024 08:24:47 Imaging Results None recorded. Procedure [...] Not Available Not Available Not Available Vivelle-Dot 0.0375 mg/24 hr transdermal patch Apply 1 patch twice a week by transderm al route. 06/16 completed Not Available Not Available Not Available [...] Available Not Available Not Available [employer] ([place] 3 and 6) active Not Available Not [...] Address Organization Details Last Updated DateTime 01/12/2024 94814.44 g 33.1 kg/m2 167.64 [place] [address] [place], [address], [facility] 01/12/2024 08:41:06 Social History None recorded. Functional [...] SNOMED-CT Code Diagnosis ICD10 Code Diagnosis Note 45370 Rosa Maria Osorio NP Main Office [address] [place] [address] 05/19/2023 07:00:18 05/22/2023 06:36:12 Menopausal symptom 67623358 N95.1 - Patient's symptoms of brain fog, [...] risk implicatio ns with short term vs mcc use. [address]86 Rosa Maria Osorio NP Main Office [address] [place] [address] 06/16/2023 07:00:11 06/19/2023 08:00:28 Menopausal symptom 50289812 N95.1 - The patient's symptoms, including hot [...] s if necessary. Sleep gwen lauro disturbance 25441164 G47.9 - Patient's reported sleep disturbanc es, [...] effectiven ess of the dosage adjustment . [address] Rosa Maria Osorio NP Main Office [address] [place] [address] 07/14/2023 07:30:11 07/17/2023 04:36:38 Menopausal symptom 62281937 N95.1 - The patient's recent increase in [...] if symptoms persist. Sleep gwen lauro disturbance 82305318 G47.9 - The patient reports waking up frequently during the night, which may be contributi ng to daytime fatigue and decreased energy.- Encouraged the patient to focus on improving sleep hygiene.- If sleep disturbanc es persist, consider evaluating for potential sleep disorders or adjusting hormone replacemen t therapy. Seasonal a ffective disorder 673653679 F33.9 - patient has known hx of seasonal affective disorder.- Plan to monitor symptoms over the next four weeks.- If symptoms persist or worsen, consider adding non-hormon al medication s to help with mood and energy levels such as SSRI, SNRI or wellbutrin - Scheduled a follow-up appointmen t in August to reassess symptoms and adjust treatment plan as necessary. [address] Rosa Maria Osorio NP Main Office [address] [place] [address] 09/22/2023 06:30:02 09/25/2023 05:54:15 Menopausal symptom 86866665 N95.1 - Patient is currently on a [...] the treatment plan. Seasonal a ffective disorder 995189671 F33.9 - Patient reports feeling less active and experienci ng increased hunger during the winter months, as well as hx of seasonal affective disorder.- Encouraged the patient to continue taking vitamin D supplement s.- can consider alternativ e such as SSRI in future if sx persist/wo rsen- Will continue monitoring and reassess the patient's condition during the follow-up appointmen t in November. 695187 Rosa Maria Osroio NP Main Office [address] [place] [address] 12/01/2023 07:02:13 12/04/2023 06:08:21 Menopausal symptom 55912363 N95.1 - Patient has been on estrogen [...] no refills.- Patient will consider switching to [facility] mail order pharmacy for future refills.- Scheduled a follow-up appointmen t on January 11 at 8:30 am to assess the effectiven ess of the increased estrogen dose and discuss any further treatment options if needed. [id number] Rosa Maria Osorio NP Main Office [address] [place] [address] 01/12/2024 07:33:02 01/15/2024 06:15:50 Menopausal symptom [id number] N95.1 - Patient experience d breast tenderness [...] change in condition. Abnormal weight gain [id number] R63.5 - Patient expressed concern about weight gain and interest in weight loss medication s- BMI 33- Discussed short-term option of Wellbutrin for weight loss- Ordered labs to check for insulin resistance and A1C levels- Patient will have labs done at [facility] in [place]- Scheduled follow-up appointmen t on February 15 at 9:30 am to review lab results and discuss weight loss medication options [id number] Bettie Wilson NP Main Office [address] [place] [address] 09/20/2024 07:36:40 09/20/2024 19:31:31 Menopausal syndrome [id number] N95.1 - Patient reports resolution of breast [...] a 90-day supply to be sent to [facility] on [place], [place].- Scheduled follow-up appointmen t in 6 months to monitor symptoms and treatment efficacy. Prediabetes [id number] R7 3.03 - Hemoglobin A1c slightly elevated [...] Acosta Member ID Guarantor Name 10/08/2024 1 BCTORIE-JANET (PPO) [id number] Luis Angulojumana [id number] 47 Keena Natalie marshall Notes Date Note Type Note Provider Name and Address Organization Details Recorded Time 07/14/2023 text/html Virtual Visit Attestation Modality: Video Provider Location: Home Patient Location: Home Patient State: [place] [ ]I have obtained consent from the patient for [...] [place] [address] [place], [address], [facility] 08/01/2023 14:29:35 09/22/2023 text/html Virtual Visit Attestation Modality: Video Provider Location: Home Patient State: [place] [ ]I have obtained consent from the patient for [...] replacement therapy in [place] [address] [place], [address], [facility] 09/22/2023 16:04:17 12/01/2023 text/html Virtual Visit Attestation Modality: Video Provider Location: Home Patient State: [place] [ ]I have obtained consent from the patient for [...] related to planning her 's 49th birthday libertarian. Irritability:- Patient reports feeling irritable and stressed, [...] getting her prescription filled at her local [facility], resulting in her being off the medication [...] [place] [address] [place], [address], [facility] [employer] 12/02/2023 16:38:36 01/12/2024 text/html Virtual Visit Attestation Modality: Video Provider Location: Home Patient State: [place] [ ]I have obtained consent from the patient for use of autoscribe. Patient is a 53 year old female [...] [place] [address] [place], [address], [facility] 01/15/2024 13:39:22 09/20/2024 text/html Patient is a [...] She typically gets a 90-day supply from [facility] on [address] in [place], [place]. Follow-up Appointments:- Patient prefers Monday appointments due to her work schedule from Monday to .- She is scheduled for a follow-up appointment in 6 months, on March 28 at 8:30 AM. PMHx:- Pre-diabetes Current Meds:- 0.075 milligram pack- Progesterone milligrams at bedtime Virtual Visit AttestationModality: VideoProvider Location: Home Patient Location: Home Patient State: JANET Wilson, SENIOR TAX ANALYST [address] [place], [address], [facility] 09/20/2024 08:48:22 OBGyn Episode No OBEpisode recorded.
[2025-03-11 08:32] VITALS: BP 124/82; BMI 25.8
--- NOTE | 2025-03-11 08:32 | A.OFFVIS_ITS ---
Vital Signs 03/11/25 08:32 Height 5 ft 6 in Weight 160 lb BMI 25.8 BP 124/82 Blood Pressure Location Rt brachial Position Sitting Intake Visit Reasons: 02/07 LVM+LET INP-Other Amnesia Intake Note: Patient referred in-house for memory impairment Allergies No Known Allergies Allergy (Verified 03/11/25 08:33) Medication List - Last Reconciled 03/11/25 by Dalia Wagner MD [collagen protein PO] estradiol 1 patch transdermal 2XW magnesium 250 mg PO DAILY multivitamin 1 tab PO DAILY naproxen 500 mg PO BID progesterone micronized 100 mg PO BEDTIME sertraline 50 mg PO DAILY HPI Comments Details: 54y/o female comes for evaluation of memory issues, word finding difficulties. she started noticing difficulties in the past 4-5 years. She feels her cognition is worsening. 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 she is depressed because of her cognitive difficulties and losing her job. she has executive difficulties- forgets directions to familiar places,has problem with following directions, trouble with processing , spelling, could not remember social security etc. she cries during the interview. she has some trouble with various apps on her phone she frequently misplaces and cannot find things she is on hormone replacement for post menopause. she used to be very organized she sleep OK , has some snoring and feels groggy during daytime SHe had a minor head injury when she had a near syncope - leo snot remember when PFSH Medical History Shoulder pain, left Family history of polyps in the colon Pre-op examination Colon cancer screening Cervical cancer screening Breast cancer screening Surgical History Hx of colonoscopy Family History Mother Lung cancer Father Skin cancer CVA (cerebral vascular accident) Sister No problems noted. Sister No problems noted. Sister Mental health disorder Daughter No problems noted. 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 Sexual orientation: Straight/Heterosexual Gender identity: Female Cognitive needs: No Hearing needs: No Vision needs: Yes (Glasses) Female Reproductive History Menstrual Age of Menarche: 12 Physical Exam Vital Signs: Last Vital Signs BP 124/82 03/11/25 08:32 BMI result Body Mass Index 25.8 Const General: cooperative, healthy appearing, comfortable and anxious Nutritional Appearance: average body habitus Orientation/consciousness: patient oriented x3 Eyes Pupils: Equal, round and reactive pupils present Neuro General: patient oriented x3, gait normal, tone normal, moves all extremities and no focal motor deficits Cranial nerves: Yes Facial sensation intact/muscles of mastication intact, Yes Equal, round and reactive pupils present, Yes Bilaterally intact EOM present, Yes Nystagmus not present, Yes Normal facial strength present, Yes Midline tongue present, Yes Symmetric palate elevation present and Yes Ability to bilaterally elevate shoulders present Cognition (Neuro): normal cognition Gait exam (Neuro): Normal gait present Motor exam (neuro): 5/5 motor strength present throughout and Normal motor muscle tone present throughout Deep tendon reflexes (DTR's): Right triceps reflex intensity grade: 2+, Left triceps reflex intensity grade: 2+, Rt Biceps (C5, C6): 2+, Left biceps reflex intensity grade: 2+, Right brachioradialis reflex intensity grade: 2+, Left brachioradialis reflex intensity grade: 2+, Right patellar reflex intensity grade: 2+ and Left patellar reflex intensity grade: 2+ Coordination: [id number]-ru-scgi test normal Psych Appearance: grossly normal Affect: Depressed mood present Orientation What is the (year) (season) (date) (day) (month)?: year, season, date, day and month Where are we (state) (county) (town or city) (hospital) (floor)?: state, town or city, hospital/clinic and floor Registration Name of 3 unrelated objects clearly and slowly, then ask patient to repeat all 3 of them. (1st repeat determines score. Make sure they can repeat all three): object 1, object 2 and object 3 Attention & Calculation (CHOOSE ONE) Spell WORLD backwards (DLROW): 5 letters Recall Ask patient to repeat the 3 items from question #3.: object 1 and object 2 Language Show patient a wristwatch & ask what it is. Repeat for pencil.: watch and pencil Ask the patient to repeat the phrase 'No ifs, ands, or buts' after you.: correct Ask the patient to 'take a piece of paper with their right hand' 'fold paper in half' 'place paper on floor': take paper in right hand, fold paper in half and place paper on floor Print the sentence 'CLOSE YOUR EYES' on a piece. If patient actually closes eyes then score.: followed written direction Give patient a blank piece of paper & ask to write a sentence. Score if it contains a noun & verb.: sentence contains subject and verb Ask patient to copy figure of intersecting pentagons exactly. Score if all 10 angles & 2 intersects are included.: all 10 angles present & 2 are intersected Score Score: 28 Assessment & Plan Assessment & Plan (1) Cognitive impairment: Comment: poorly controlled mood Code(s): R41.89 - Other symptoms and signs involving cognitive functions and awareness Category: Medical (2) Depression: Code(s): F32.A - Depression, unspecified Category: Medical Qualifiers: Depression Type: unspecified Qualified Code(s): F32.A - Depression, unspecified Plan MRI brain to r/o structural causes Check Vit B 12 ESR I will trial her on sertraline 50mg qd for depression F/iu psyhcology psychiatry Orders: Orders Vitamin B12 and Folate Today R41.89 - Other symptoms and signs involving cognitive functions and awareness MR head/brain wo con Today R41.89 - Other symptoms and signs involving cognitive functions and awareness Erythrocyte Sedimentation Rate Today R41.89 - Other symptoms and signs involving cognitive functions and awareness Referrals Speech and Hearing Referral R41.89 - Other symptoms and signs involving cognitive functions and awareness Medications: New sertraline 50 mg PO DAILY 30 tabs 6RF Coding Level of Care Code New Pt Level 4 (17240) Complex EM visit Add On G2211 Diagnoses Cognitive impairment R41.89 Depression, unspecified depression type F32.A Depression Type: unspecified
== END 2025-03-11 09:10 | disposition home or self-care (01) ==
LOC: HO.HSMS 08:26
PROVIDERS: PCP Internal Medicine; Visit Provider Psychiatry & Neurology Neurology
DX: R41.89 Other symptoms and signs involving cognitive functions and awareness (principal); F32.A Depression, unspecified
CPT/HCPCS: 99204

== ENCOUNTER 2025-03-21 07:31 | Outpatient (REF) | payer BC, SELFPAY ==
--- OUTSIDE RECORDS SUMMARY | 2025-03-21 07:33 | XMS_ITS | Data Portability ---
Author Organization [facility] in Office Address [address] [place] [address] Assessment Encounter Date Assessment Date Assessment LastModified by Organization Details LastModified Time 07/14/2023 07/14/2023 I spent 30 minutes of irsy-yo-fsgr counselling and care coordination time with the patient. This includes reviewing medical records (medical, surgical, family and social history); updating medication and allergy information in the electronic health record; and ordering labs, medications, and education materials to continue patient care. [email or web address] Not available 07/14/2023 08:56:24 09/22/2023 09/22/2023 I spent 20 minutes of kbxe-bb-rzho counselling and care coordination time with the patient. This includes reviewing medical records (medical, surgical, family and social history); updating medication and allergy information in the electronic health record; and ordering labs, medications, and education materials to continue patient care. [email or web address] Not available 09/22/2023 08:24:53 12/01/2023 12/01/2023 I spent 25 minutes of netj-jr-njoy counselling and care coordination time with the patient. This includes reviewing medical records (medical, surgical, family and social history); updating medication and allergy information in the electronic health record; and ordering labs, medications, and education materials to continue patient care. [email or web address] Not available 12/01/2023 14:15:05 01/12/2024 01/12/2024 I spent 30 minutes of bror-tz-xlmp counselling and care coordination time with the patient. This includes reviewing medical records (medical, surgical, family and social history); updating medication and allergy information in the electronic health record; and ordering labs, medications, and education materials to continue patient care. [email or web address] Not available 01/12/2024 09:48:03 09/20/2024 09/20/2024 I spent 15 minutes of xaiz-av-wukj counselling and care coordination time with the [...] Go To The Location Of Their Choice, [facility] 01/22/2024 11:10:27 HbA1c (hemoglob in A1c), blood 2023 024 EMILIO [facility] (Centralized Electronic Ordering - All Locations), Patient Can Go To The Location Of Their Choice, [facility] 01/22/2024 11:10:30 lipid panel, serum 2023 024 EMILIO [facility] (Centralized Electronic Ordering - All Locations), Patient Can Go To The Location Of Their Choice, [facility] 01/22/2024 11:10:28 insulin, serum - fasting please 2023 024 CALLAO [facility] (Centralized Electronic Ordering - All Locations), Patient Can Go To The Location Of Their Choice, [facility] 01/22/2024 11:10:29 Referral None recorded. Procedures None recorded. Surgeries None recorded. Imaging None recorded. Medication Orders estradiol 0.075 mg/24 hr semiweekl y transderm al patch 2024 025 [facility]acy #[id number], [address] [place], [address], 09/20/2024 08:45:59 progester one micronize d 100 mg capsule 2024 025 [facility]/Pharmacy #[id number], [address] [place], [address], 09/20/2024 08:45:59 Vivelle-D ot 0.075 mg/24 hr transderm al patch 2023 024 EMILIO [facility]/Pharmacy #[id number], [address] [place], [address], 12/01/2023 08:15:10 Patient TargetsNo targets recorded. Patient Instructions Encounter Date Encounter Id Patient Instructions Last Modified By Organization Details Last Modified Time 07/14/2023 [id number] Any requested follow-up visits are listed below in the Plan of Care section. Go directly to the [employer] butter liquefier at [email or web address]. to book a time. [email or web address] Not available 07/14/2023 08:23:20 It was a [...] you for trusting us with your care! Not available 07/14/2023 08:53:43 09/22/2023 [id number] Any requested follow-up visits are listed below in the Plan of Care section. Go directly to the [employer] butter liquefier at [email or web address] to book a time. [email or web address] Not available 09/21/2023 15:17:51 It was a [...] you for trusting us with your care! Not available 09/22/2023 08:26:27 12/01/2023 [id number] Any requested follow-up visits are listed below in the Plan of Care section. Go directly to the [employer] butter liquefier at [email or web address] to book a time. [email or web address] Not available 12/01/2023 08:02:55 It was a Teralynk e to meet with you today! We discussed your health concerns related to menopause, including mood changes and irritability. -------- Your Care Plan -------- Together, we decided that you would: - Increase your estrogen dosage. This adjustment is aimed at improving your mood and energy levels. We will monitor this filter changer the next month to see how it affects your symptoms. - Schedule a follow-up appointment for January 11 at 8:30 am. This will allow us to assess how you're responding to the increased estrogen dosage. - Consider using a mail order pharmacy, specifically [facility], to avoid delays in receiving your medication. You can initiate this change by sending me a portal message when you're due for a refill. Please carefully review the care plan we have decided upon, specific information regarding your medication, and important details about your treatment detailed below. Thank you for trusting us with your care! [email or web address] Not available 12/01/2023 14:15:31 01/12/2024 [id number] Any requested follow-up visits are listed below in the Plan of Care section. Go directly to the [employer] butter liquefier at [email or web address] to book a time. [email or web address] Not available 01/12/2024 08:33:09 It was a [...] dull the aching and discomfort. - Take nydz-fuz-npxmiig vitamin E and evening primrose oil capsules, which can help with breast and nipple tenderness. These should be taken orally. - Get blood work done at [facility] on [facility] in [place]. This will help us check for any insulin resistance and evaluate your average glucose level (A1C). You can call them at [phone] to make an appointment. If they do [...] you would like a referral to a prescription clerk to help you with more detailed diet instruction and education. There are two virtual options for prescription clerk/dietici an services that take insurance: Nourish: https://www.usenouri Front Up.Anzode HealthLoft: https://Takkle .Anzode Akkermansia (probiotic): Studies: https://www.ncbi.nlm .nih.gov/pmc/article s/RGD92559402 and https://www.ncbi.nlm .nih.gov/pmc/article s/CKX6614637 Where to buy (this is just one option, does not have to be this brand): https://Phorm/products/pendsteven um-akdeepaksia FIBER: Increased fiber intake can be [...] to have the least contamination from lead (https://www.SlideBatch rlab.com/reviews/psy llium-supplements/ps yllium/). BERBERINE: Berberine is a [...] Anti-Aging Therapy: Is It for Everyone? Link: https://www.Searchspace.Anzode/science/joseph stephens/pii/B815356038 353160G Main Points (a review): Prolongs lifespan and healthspan in the invertebrate Caenorhabditis elegans and Mice as well as potentially human longevity Metformin regulates metabolic and non metabolic pathways in skeletal muscle and subcutaneous adipose tissues of older adults Link: https://onlinelibrar y.guillen.com/doi/epdf /10.1111/acel.10066? src=getftr Main Points: Studied~70-year-old participants (n=14) in a randomized, double-blind, placebo-controlled,[facility] trial in which they were treated [...] the Hallmarks of Aging Link: https://www.ncbi.nlm .nih.gov/pmc/article s/JJT8345147/ Metformin mechanism: improving nutrient-sensing, enhancing autophagy and intercellular communication, protecting against macromolecular damage, delaying stem-cell aging, modulating mitochondrial function, regulating professor of exercise science, and lowering telomere attrition and senescence. GLP-1 AGONISTS: How Do GLP-1 Agonists Work to help with weight loss? These medications decrease hunger cues, turns off food chatter , increases early satiety, & slows gastric emptying so patients stay sutton longer. Videos about the mechanism of action of GLP-1 agonists: https://www.youtube. com/watch?v=KsfDQQSZ UsA https://www.youSummit Wine Tastingsube. com/watch?v=P6gt4A_3 Whs Coupons for Zepbound: [place] [phone] to enroll for a digital starter kit [...] the regularly scheduled day or message your [facility] Weight Loss Expert to talk about how [...] and common side effect. Talk to your [facility] healthcare provider about how to recognize and [...] 911. You can also call / text 218 https://vLex. [employer]/?utm_source=elliekristy duenas&utm_medium=web&ut m_campaign=onebox COMPOUNDED MEDICATIONS FOR WEIGHT: Available for patients who's insurance will not cover the cost of medications or who are not able to access these medications due to supply chain issues. Compounded Semaglutide or Tirzepatide can be prescribed to: [facility] Located in [address], [place], [place] Phone number is: Approximate Cost: Semaglutide/Cyanocob [...] NOT available for patients in the state [facility]) 1ml vial -$400 4ml vial -$1000 [...] these goals in mind. More info: -once [facility] receives the prescription they will be [...] This is the website for this medication: https://contrave.Anzode Contrave is a medication that is FDA [...] your heart health closely while taking Qsymia. [email or web address] Not available 01/12/2024 09:49:06 09/20/2024 [id number] Any requested follow-up visits are listed below in the Plan of Care section. Go directly to the [employer] butter liquefier at [email or web address] to book a time. Not available 09/19/2024 [...] 90-day supply of progesterone to your pharmacy ([facility]) to save you trips to the pharmacy. [...] trusting us with your care! Bettie Wilson, FISCAL MANAGER- Not available 09/20/2024 08:46:17 Reason for Referral None Reported. Results Created Date Observation Date Name Description Value Unit Range Abnormal Flag Note LastModifiedBy Organization Detail LastModifiedTime 01/18/20 24 01/19/2024 COMP. METAB OLIC PANEL (14) glucose 80 mg/dL 70-99 Not Available [facility] ([facility]) [address] [facility] [place], [address], 01/22/2024 11:10:27 01/18/20 24 01/19/2024 COMP. METAB OLIC PANEL (14) BUN 16 mg/dL 6-24 Not Available [facility] ([facility]) [address] [facility] [place] [place], [address], 01/22/2024 11:10:27 01/18/20 24 01/19/2024 COMP. METAB OLIC PANEL (14) creatinine 0.95 mg/dL 0.57-1 .00 Not Available [facility] ([facility]) [address] [place], [address], 01/22/2024 11:10:27 01/18/20 24 01/19/2024 COMP. METAB OLIC PANEL (14) eGFR 71 mL/mi n/1.7 3 >59 Not Available [facility] ([facility]) [address] [facility] [place] [place], [address], 01/22/2024 11:10:27 01/18/20 24 01/19/2024 COMP. METAB OLIC PANEL (14) BUN/creatini ne ratio 17 9-23 Not Available [facility] ([facility]) [address] [place], [address], 01/22/2024 11:10:27 01/18/20 24 01/19/2024 COMP. METAB OLIC PANEL (14) sodium 142 mmol/ L 134-14 4 Not Available [facility] ([facility]) [address] [place], [address], 01/22/2024 11:10:27 01/18/20 24 01/19/2024 COMP. METAB OLIC PANEL (14) potassium 4.1 mmol/ L 3.5-5. 2 Not Available [facility] ([facility]) [address] [place], [address], 01/22/2024 11:10:27 01/18/20 24 01/19/2024 COMP. METAB OLIC PANEL (14) chloride 107 mmol/ L 96-106 above high normal Not Available [facility] ([facility]) [address] [place], [address], 01/22/2024 11:10:27 01/18/20 24 01/19/2024 COMP. METAB OLIC PANEL (14) carbon dioxide, total 20 mmol/ L 20-29 Not Available [facility] ([facility]) [address] [place], [address], 01/22/2024 11:10:27 01/18/20 24 01/19/2024 COMP. METAB OLIC PANEL (14) calcium 9.0 mg/dL 8.7-10 .2 Not Available [facility] ([facility]) [address] [place], [address], 01/22/2024 11:10:27 01/18/20 24 01/19/2024 COMP. METAB OLIC PANEL (14) protein, total 5.7 g/dL 6.0-8. 5 below low normal Not Available [facility] ([facility]) [address] [place], [address], 01/22/2024 11:10:27 01/18/20 24 01/19/2024 COMP. METAB OLIC PANEL (14) albumin 4.1 g/dL 3.8-4. 9 Not Available [facility] ([facility]) [address] [place], [address], 01/22/2024 11:10:27 01/18/20 24 01/19/2024 COMP. METAB OLIC PANEL (14) globulin, total 1.6 g/dL 1.5-4. 5 Not Available [facility] ([facility]) [address] [place], [address], 01/22/2024 11:10:27 01/18/20 24 01/19/2024 COMP. METAB OLIC PANEL (14) A/G ratio 2.6 1.2-2. 2 above high normal Not Available [facility] ([facility]) [address] [facility], [place], [address], 01/22/2024 11:10:27 01/18/20 24 01/19/2024 COMP. METAB OLIC PANEL (14) bilirubin, total <0.2 mg/dL 0.0-1. 2 Not Available [facility] ([facility]) [address] [facility], [place], [address], 01/22/2024 11:10:27 01/18/20 24 01/19/2024 COMP. METAB OLIC PANEL (14) alkaline phosphatase 58 IU/L 44-121 Not Available [facility] ([facility]) [address] [facility], [place], [address], 01/22/2024 11:10:27 01/18/20 24 01/19/2024 COMP. METAB OLIC PANEL (14) AST (SGOT) 18 IU/L 0-40 Not Available [facility] ([facility]) [address] [facility], [place], [address], 01/22/2024 11:10:27 01/18/20 24 01/19/2024 COMP. METAB OLIC PANEL (14) ALT (SGPT) 9 IU/L 0-32 Not Available [facility] ([facility]) [address] [facility], [place], [address], 01/22/2024 11:10:27 01/18/20 24 01/19/2024 LIPID PANEL WITH LDL/H DL RATIO cholesterol, total 145 mg/dL 100-19 9 Not Available [facility] ([facility]) [address] [facility], [place], [address], 01/22/2024 11:10:28 01/18/20 24 01/19/2024 LIPID PANEL WITH LDL/H DL RATIO triglyceride s 73 mg/dL 0-149 Not Available [facility] ([facility]) [address] [facility], [place], [address], 01/22/2024 11:10:28 01/18/20 24 01/19/2024 LIPID PANEL WITH LDL/H DL RATIO HDL cholesterol 55 mg/dL >39 Not Available [facility] ([facility]) [address] [facility], [place], [address], 01/22/2024 11:10:28 01/18/20 24 01/19/2024 LIPID PANEL WITH LDL/H DL RATIO VLDL cholesterol joaquin 14 mg/dL 5-40 Not Available [facility] ([facility]) [address] [facility], [place], [address], 01/22/2024 11:10:28 01/18/20 24 01/19/2024 LIPID PANEL WITH LDL/H DL RATIO LDL chol calc ([facility]) 76 mg/dL 0-99 Not Available [facility] ([facility]) [address] [facility], [place], [address], 01/22/2024 11:10:28 01/18/20 24 01/19/2024 LIPID PANEL WITH LDL/H DL RATIO comment: DIGITAL RECRUITER Not Available [facility] ([facility]) [address] [place], [address], 01/22/2024 11:10:28 01/18/20 24 01/19/2024 LIPID PANEL WITH LDL/H DL RATIO LDL/HDL ratio 1.4 ratio 0.0-3. 2 LDL/H DL Ratio Men Women 1/2 Avg.R isk 1.0 1.5 Avg.R isk 3.6 3.2 2X Avg.R isk 6.2 5.0 3X Avg.R isk 8.0 6.1 Not Available [facility] ([facility]) [address] [place], [address], 01/22/2024 11:10:28 01/18/20 24 01/22/2024 INSUL IN #9 insulin #9 1.9 uIU/m L 9509 Not Available [facility] [address] [facility], [place], [address], 01/22/2024 11:10:29 01/18/20 24 01/19/2024 HEMOG LOBIN A1C hemoglobin A1C 5.7 % 4.8-5. 6 above high normal Predi abete s: 5.7 - 6.4 Diabe pinky: >6.4 Glyce moe contr ol for adult s with diabe pinky: <7.0 Not Available [facility] ([facility]) [address] [facility], [place], [address], 01/22/2024 11:10:30 Result Notes None recorded. Problems Name Problem SNOMED Code Status Onset Date Resolution Date Notes Provider Name and Address Organization Details Recorded Time Fatigue 07674847 Active 2023 [place] [address] [address] [place], [place], [facility] 4 08:49:32 Abnormal weight gain 263248261 Active 2023 [place] [address] [place] [place], [place], [facility] 4 08:49:32 Menopausal symptom 59097160 Active 2022 [place] [address] [address] [facility] 2, [facility] 3 07:48:31 Sleep pattern disturbance 24508410 Active 2022 Rosa [place] [address], [place], [facility] 3 08:23:00 Menopausal syndrome 443626108 Active 2024 [place] [address] [address] [place], [place], 2, [facility] 5 08:48:11 Seasonal affective disorder 972859911 Active 2022 [place] [address] [place], [place], 2, [facility] 3 08:53:53 Problem Notes None recorded. Procedures Surgical History Date Name Laterality Status Provider Name and Address Organization Details Recorded Time 4 Date of Last [place] [address] [place], [place], , [facility] 09/20/2024 08:24:47 4 Date of Last [place] [address] [place], , [facility] 09/19/2024 11:24:53 3 Date of Last [place] [address] [place], , [facility] 09/20/2024 08:24:47 Imaging Results None recorded. [...] Available Not Available Not Available [employer] ([place] 3 and 6) active Not Available Not [...] Address Organization Details Last Updated DateTime 01/12/2024 06022.44 g 33.1 kg/m2 167.64 [place] [address] [place], [address], [facility] 01/12/2024 08:41:06 Social History None recorded. 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 42081 Rosa Maria Osorio NP Main Office [address] [place] [address] 06/16/2023 07:00:11 06/19/2023 08:00:28 Menopausal symptom 41764109 N95.1 - The patient's symptoms, including hot [...] s if necessary. Sleep gwen lauro disturbance 20759367 G47.9 - Patient's reported sleep disturbanc es, [...] effectiven ess of the dosage adjustment . [address]45[address] Rosa Maria Osorio NP Main Office [address] [place] [address] 07/14/2023 07:30:11 07/17/2023 04:36:38 Menopausal symptom 60110792 N95.1 - The patient's recent increase in [...] if symptoms persist. Sleep gwen lauro disturbance 21706332 G47.9 - The patient reports waking up frequently during the night, which may be contributi ng to daytime fatigue and decreased energy.- Encouraged the patient to focus on improving sleep hygiene.- If sleep disturbanc es persist, consider evaluating for potential sleep disorders or adjusting hormone replacemen t therapy. Seasonal a ffective disorder 577417407 F33.9 - patient has known hx of seasonal affective disorder.- Plan to monitor symptoms over the next four weeks.- If symptoms persist or worsen, consider adding non-hormon al medication s to help with mood and energy levels such as SSRI, SNRI or wellbutrin - Scheduled a follow-up appointmen t in August to reassess symptoms and adjust treatment plan as necessary. 75[address] Rosa Maria Osorio NP Main Office [address] [place] [address] 09/22/2023 06:30:02 09/25/2023 05:54:15 Menopausal symptom 38751084 N95.1 - Patient is currently on a [...] the treatment plan. Seasonal a ffective disorder 931503506 F33.9 - Patient reports feeling less active and experienci ng increased hunger during the winter months, as well as hx of seasonal affective disorder.- Encouraged the patient to continue taking vitamin D supplement s.- can consider alternativ e such as SSRI in future if sx persist/wo rsen- Will continue monitoring and reassess the patient's condition during the follow-up appointmen t in November. [id number] Rosa Maria Osorio NP Main Office [address] [place] [address] 12/01/2023 07:02:13 12/04/2023 06:08:21 Menopausal symptom 30152110 N95.1 - Patient has been on estrogen [...] no refills.- Patient will consider switching to [facility] mail order pharmacy for future refills.- Scheduled a follow-up appointmen t on January 11 at 8:30 am to assess the effectiven ess of the increased estrogen dose and discuss any further treatment options if needed. 254337 Rosa Maria Osorio NP Main Office [address] [place] [address] 01/12/2024 07:33:02 01/15/2024 06:15:50 Menopausal symptom 59049019 N95.1 - Patient experience d breast tenderness [...] change in condition. Abnormal weight gain 161 568391 R63.5 - Patient expressed concern about weight gain and interest in weight loss medication s- BMI 33- Discussed short-term option of Wellbutrin for weight loss- Ordered labs to check for insulin resistance and A1C levels- Patient will have labs done at [facility] in [place]- Scheduled follow-up appointmen t on February 15 at 9:30 am to review lab results and discuss weight loss medication options [id number] Bettie Wilson NP Main Office [address] [place] [address] 09/20/2024 07:36:40 09/20/2024 19:31:31 Menopausal syndrome 410754565 N95.1 - Patient reports resolution of breast [...] a 90-day supply to be sent to [facility] on [place], [place].- Scheduled follow-up appointmen t in 6 months to monitor symptoms and treatment efficacy. Prediabetes 823226660 R7 3.03 - Hemoglobin A1c slightly elevated [...] ID Guarantor Name 10/08/2024 1 BCTORIE-JANET (PPO) [id number] Luis Angulojumana [id number] 47 Keena Natalie marshall Notes Date Note [...] stopped [place] [address] [place], [address], [facility] 08/01/2023 14:29:35 09/22/2023 text/html Virtual Visit [...] replacement therapy in mid-[place] [address] [place], [address], [facility] 09/22/2023 16:04:17 12/01/2023 text/html Virtual Visit [...] getting her prescription filled at her local [facility], resulting in her being off the [...] mood [place] [address] [place], [address], [facility] [employer] 12/02/2023 16:38:36 01/12/2024 text/html Virtual Visit Attestation [...] [place] [address] [place], [address], [facility] 01/15/2024 13:39:22 09/20/2024 text/html Patient is a [...] She typically gets a 90-day supply from [facility] on [facility] in [place], [place]. Follow-up Appointments:- Patient prefers Monday appointments due to her work schedule from Monday to .- She is scheduled for a follow-up appointment in 6 months, on March 28 at 8:30 AM. PMHx:- Pre-diabetes Current Meds:- 0.075 milligram pack- Progesterone milligrams at bedtime Virtual Visit AttestationModality: VideoProvider Location: Home Patient Location: Home Patient State: JANET Wilson, DIGITAL RECRUITER [address] [place], [address], [facility] 09/20/2024 08:48:22 OBGyn Episode No OBEpisode recorded.
== END 2025-03-21 07:32 | disposition home or self-care (01) ==
LOC: HO.MAMMO 07:31
PROVIDERS: PCP Internal Medicine; Visit Provider Internal Medicine
DX: Z12.31 Encounter for screening mammogram for malignant neoplasm of breast (principal)
CPT/HCPCS: 77063; 77067

== ENCOUNTER 2025-03-21 18:48 | Outpatient (REF) | payer BC, SELFPAY ==
--- NOTE | ~2025-03-21 | MR_ITS ---
EXAMINATION: MR BRAIN WITHOUT CONTRAST CLINICAL INFORMATION: Other symptoms and signs involving cognitive functions and awareness. COMPARISON: None available. TECHNIQUE: MRI of the brain was obtained using routine sequences without contrast. FINDINGS: Bilateral multifocal patchy and punctate subcortical and deep white matter randomly distributed hyperintense T2 FLAIR signal involving centrum semiovale and peralta radiata both hemispheres. There is a subtle hyperintense FLAIR signal in the right ventral medulla oblongata. No restricted diffusion. No acute intracranial hemorrhage, mass effect, midline shift, hydrocephalus or herniation. 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 Focal susceptibility signal right midline melissa. Sellar/suprasellar region is normal. Craniocervical junction demonstrates normal position of the cerebellar tonsils. Prominence of the extra-axial CSF spaces cerebral sulci and ventricles involving mostly the frontal parietal poles. MR/MR head/brain wo con IMPRESSION: Nonspecific white matter disease. Demyelination cannot be entirely excluded. Questionable artifactual versus FLAIR signal abnormality right ventral medulla oblongata which could favors demyelination versus lymphoproliferative disorder. Bifrontal parietal lobe atrophy. Electronically signed by: Nelson Lanier MD 03/24/2025 08:25 AM EDT
== END 2025-03-21 18:49 | disposition home or self-care (01) ==
LOC: HO.MRI 18:48
PROVIDERS: PCP Internal Medicine; Visit Provider Psychiatry & Neurology Neurology
DX: R41.89 Other symptoms and signs involving cognitive functions and awareness (principal)
CPT/HCPCS: 70551

== ENCOUNTER → 2025-03-21 18:55 | Outpatient (BNV) | payer BC, SELFPAY | PROVIDERS: PCP Internal Medicine; Visit Provider Radiology Diagnostic Radiology | DX: Z12.31 Encounter for screening mammogram for malignant neoplasm of breast (principal) | CPT/HCPCS: 77063; 77067 ==

== ENCOUNTER 2025-04-25 16:02 | Outpatient (AMB) | payer OTHER, SELFPAY ==
--- NOTE | 2025-04-25 16:11 | A.OFFPC_ITS ---
Vital Signs 04/25/25 16:12 Height 5 ft 6 in Weight 157 lb 6 oz BMI 25.4 BP 128/70 Blood Pressure Location Lt brachial Position Sitting Pulse 72 Pulse Source Pulse Oximeter Temp 97.3 F Temp Source Temporal Artery Scan Pulse Oximetry (%) 99 Oxygen Delivery Method Room Air Intake Visit Reasons: Annual PE Intake Note: Patient is here today for a physical. 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 Kitchen: Not Required per policy Accompanied by: Self / Same As Patient Allergies No Known Allergies Allergy (Verified 04/25/25 16:11) Medication List - Last Reconciled 04/25/25 by Geo Bain MD cholecalciferol (vitamin D3) 125 mcg PO DAILY estradiol 1 patch transdermal 2XW ferrous sulfate (Feosol) 325 mg PO DAILY magnesium 250 mg PO DAILY multivitamin 1 tab PO DAILY naproxen 500 mg PO BID progesterone micronized 200 mg PO BEDTIME sertraline 50 mg PO DAILY Tobacco use date assessed: 04/25/25 Dental Screening Dental Screen Date: 02/07/25 HPI Annual PE HPI Details fainted last may, once time, - [facility] Medical History (Updated 03/11/25 @ 09:14 by Dalia Wagner MD) Cognitive impairment Shoulder pain, left Family history of polyps in the colon Pre-op examination Colon cancer screening Cervical cancer screening Breast cancer screening Surgical History Hx of colonoscopy Family History (Updated 04/25/25 @ 16:47 by Geo Bain MD) Mother Lung cancer Father Skin cancer CVA (cerebral vascular accident) Sister No problems noted. Sister No problems noted. Sister Mental health disorder Daughter No problems noted. 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 Sexual orientation: Straight/Heterosexual Gender identity: Female Cognitive needs: No Hearing needs: No Vision needs: Yes (Glasses) Female Reproductive History Menstrual Age of Menarche: 12 Questionnaire Thrive Questionnaire Date Thrive assessed: 01/31/25 I am a: Patient What is your living situation today?: I have a steady place to live Within the past 12 months, did the food you bought not last and you didn't have the money to get more?: Never true Within the past 12 months, did you worry whether your food would run out before you got money to buy more?: Sometimes True Do you have trouble paying for medicines?: No Do you have trouble getting transportation to medical appointments?: No Do you have trouble paying your heating and electricity bill?: No Do you have trouble taking care of your child, family member or friend?: No Do you have trouble with day-to-day activities such as bathing, preparing meals, shopping, managing finances, etc.?: I choose not to answer this question Are you currently unemployed and looking for a job?: Yes Are you interested in more education?: Yes Currently or been in a relationship where the following occur: No concerns reported THRIVE Score: 1 JEANETTE-7 AMB Questionnaire JEANETTE-7 Date JEANETTE - 7 assessed: 02/07/25 Source: Developed by Drs. Lance Pittman, Celeste Duckworth, Nikko Joyner and colleagues, with an educational daniella from [employer]. Review of Systems Const Denies poor appetite and Denies weakness Eyes Denies no additional complaints ENT Reports Normal hearing present, Denies dizziness, Denies nasal congestion, Denies tinnitus and Denies sore throat Card Denies chest pain, Denies syncope, Denies rapid heart rate and Denies dyspnea Resp Denies cough and Denies dyspnea GI Denies change in stool character, Reports constipation, Denies diarrhea, Denies nausea and Denies vomiting Denies urinary frequency, Denies difficulty voiding and Denies dysuria Neuro Reports Normal hearing present, Denies confusion, Denies dizziness, Denies syncope and Denies weakness Psych Denies confusion Physical exam (Primary Care) Vital Signs: Last Vital Signs Temp 97.3 F 04/25/25 16:12 Pulse 72 04/25/25 16:12 BP 128/70 04/25/25 16:12 Pulse Ox 99 04/25/25 16:12 Oxygen Delivery Method Room Air 04/25/25 16:12 BMI result Body Mass Index 25.4 Tobacco/Smoking Status: Tobacco use Status Tobacco use date assessed 04/25/25 04/25/25 16:16 Patient Tobacco Use Status Never used Tobacco 04/25/25 16:49 e-Cigarette/Vaping Use Never Used 04/25/25 16:49 Thrive Assessment: Date of Thrive Assessment Date Thrive assessed 01/31/25 04/25/25 16:16 Currently or been in a relationship where the following occur: No concerns reported Const General: No confusion Orientation/consciousness: No confusion HENMT Head: Yes normocephalic Ears: external ears normal and TM's normal bilaterally Face and sinus: Yes normal facial exam Mouth: moist mucous membranes Throat: Yes tonsils normal Eyes Conjunctivae: conjunctivae normal Pupils: Equal, round and reactive pupils present and Pupil accommodation reflex normal Direct Ophthalmoscopy: normal light reflex Neck Neck: No lymphadenopathy Thyroid: Thyroid normal Chest Chest palpation & inspection: normal inspection of the chest Resp Effort & Inspection: normal respiratory effort and no audible wheezes Auscultation: clear to auscultation bilaterally, no crackles, no wheezes and lung sounds not diminished Cardio Rate: regular rate Rhythm: regular rhythm Peripheral pulses: radial pulses present and dorsalis pedis present GI Palpation (GI): no masses Auscultation: normal bowel sounds and normoactive bowel sounds Rectal Exam - Female: deferred Skin General skin exam: no rashes or lesions noted Rashes: no rashes Neuro General: No confusion Cranial nerves: Yes Equal, round and reactive pupils present and Yes Normal hearing present Cognition (Neuro): normal cognition Gait exam (Neuro): Normal gait present Motor exam (neuro): 5/5 motor strength present throughout Deep tendon reflexes (DTR's): Right brachioradialis reflex intensity grade: 2+, Left brachioradialis reflex intensity grade: 2+, Right patellar reflex intensity grade: 2+ and Left patellar reflex intensity grade: 2+ Extrem General: No edema Immunizations Tenivac (PF) 5 Lf unit-2 Lf unit/0.5 mL intramuscular suspension Performing Provider: Geo Bain MD Performing Location: [facility] [place] [facility] Administered by: Karla Rooney CMA on 04/25/25 17:03 Dose Route Admin Location Dispensed Lot Number Expiration Date [facility] Adult Family Home Program Manager 0.5 mL IM Left Deltoid 0.5 mL [id number] 12/10/26 10957-005-50 [employer] Total Dispensed Waste 0.5 mL 0 % VIS Given Date VIS Provided VIS Publication Date 04/25/25 Single Vaccine 21 Eligibility Eligibility Date Funding Source Not [facility] Eligible 04/25/25 Private Coding Level of Care Code Est Pt Prev Care 40-64y(55143) Diagnoses Annual physical exam Z00.00 Cognitive impairment R41.89 Overweight (BMI 25.0-29.9) E66.3 Assessment & Plan Assessment & Plan (1) Annual physical exam: Code(s): Z00.00 - Encounter for general adult medical examination without abnormal findings Category: Medical Plan: Patient is advised to eat healthy, keep well hydrated, keep active and have adequate sleep. (2) Cognitive impairment: Comment: poorly controlled mood Code(s): R41.89 - Other symptoms and signs involving cognitive functions and awareness Category: Medical Plan: Patient has seen Neurology and had an MRI done showing some demyelination. Patient presently has been given magnesium and placed on sertraline. (3) Overweight (BMI 25.0-29.9): Code(s): E66.3 - Overweight Category: Medical Plan: Diet and exercise Plan History of Present Illness The patient is a 54-year-old female presenting for a physical examination and management of chronic conditions. The patient has a history of Attention Deficit Hyperactivity Disorder (ADHD) and urinary retention. She also has a history of a serrated polyp found during her last colonoscopy in November 2023. The patient experiences generalized anxiety disorder and depression, for which she is currently taking sertraline 50 mg daily. She reports difficulty with word retrieval and sentence completion, which has been noticed by her colleagues at work. 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 The patient has been referred to neurology for further evaluation, with a follow-up scheduled in May. Her last blood work on February 18 showed normal blood count, no anemia, normal electrolytes, renal function, and liver function. Cholesterol levels were noted with an LDL of 124 mg/dL. Vitamin D, folic acid, and thyroid levels were within normal limits. The patient denies any new diagnoses or surgeries since her last visit. She has a family history of lung cancer, skin cancer, breast cancer, thyroid cancer, and strokes. Socially, the patient reports minimal alcohol consumption and no tobacco use. She previously used edibles for sleep but has since stopped. 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 - Substance Use: Minimal alcohol consumption, no tobacco use, previously used edibles for sleep - Exercise: Walks dog regularly Review of Systems - Neurological: Reports difficulty with word retrieval and sentence completion, denies dizziness, headaches, or balance issues - Cardiovascular: Denies chest pain, palpitations, or syncope - Respiratory: Denies dyspnea, cough, or wheezing - Gastrointestinal: Reports improved bowel movements with magnesium, denies nausea, vomiting, or abdominal pain - Genitourinary: Denies dysuria, reports nocturia close to waking time - Dermatological: Reports contact rashes, denies itching Physical Exam General: Cooperative, healthy appearing, comfortable, no acute distress and well developed Orientation: Patient oriented x3 Limitations: No limitations Head: Normal to inspection Ears: Hearing grossly normal bilaterally Nose: Normal external nose present Face and sinus: Normal facial exam Eyes: Appearance normal, both eyes and all related structures Neck: Normal visual inspection and Yes full ROM Respiratory: Normal respiratory effort and able to speak in complete sentences. Clear to auscultation bilaterally Cardiovascular: Regular rate and rhythm. Normal S1 and S2 GI: Normal to inspection. Soft to palpation and nontender Skin: No rashes or lesions noted, but patient reports contact rashes and itchiness Neuro: Patient oriented x3 Extremities: Normal to inspection Results - Labs: Blood work on February 18 showed normal blood count, no anemia, normal electrolytes, renal function, liver function, and cholesterol with LDL 124 mg/dL - Imaging: MRI of the brain showed nonspecific white matter disease, demyelination, and bifrontal parietal lobe atrophy Plan The patient will continue on sertraline 50 mg daily for management of generalized anxiety disorder and depression. Follow-up with neurology is scheduled for May to further evaluate the findings of demyelination and bifrontal parietal lobe atrophy noted on the MRI. The patient is advised to maintain a healthy lifestyle, including regular exercise and a balanced diet, and to avoid alcohol consumption. A tetanus vaccination is planned for the next visit, as it was not administered during this appointment. Patient was informed and verbally consented to the use of an ambient scribe for clinic note documentation during this visit. Discussion Notes I discussed with the patient the findings of the MRI, which showed nonspecific white matter disease and demyelination. I advised her to follow up with neurology for further evaluation and management. We also discussed the importance of maintaining a healthy lifestyle, including diet and exercise, and avoiding alcohol consumption. I informed her about the need for a tetanus vaccination, which will be administered today Patient Instructions - Continue taking sertraline 50 mg daily as prescribed. - Follow up with neurology in May for further evaluation. - Maintain a healthy lifestyle with regular exercise and a balanced diet. - Avoid alcohol consumption. - Plan to receive a tetanus vaccination at the next visit. Orders: Orders Td Immunization Today Z23 - Encounter for immunization
[2025-04-25 16:12] VITALS: BP 128/70; PULSE 72; TEMP 36.3; O2SAT 99; BMI 25.4
== END 2025-04-25 17:09 | disposition home or self-care (01) ==
LOC: HO.HMCH 16:03
PROVIDERS: PCP Internal Medicine; Visit Provider Internal Medicine
DX: Z00.00 Encounter for general adult medical examination without abnormal findings (principal); R41.89 Other symptoms and signs involving cognitive functions and awareness; E66.3 Overweight; Z23 Encounter for immunization

== ENCOUNTER → 2025-04-25 16:02 | Outpatient (BNVA) | payer OTHER, SELFPAY | PROVIDERS: PCP Internal Medicine; Visit Provider Internal Medicine | DX: Z00.00 Encounter for general adult medical examination without abnormal findings (principal); R41.89 Other symptoms and signs involving cognitive functions and awareness; F90.9 Attention-deficit hyperactivity disorder, unspecified type; E66.3 Overweight; R33.9 Retention of urine, unspecified; F41.1 Generalized anxiety disorder; F32.A Depression, unspecified; Z23 Encounter for immunization; Z68.25 Body mass index [BMI] 25.0-25.9, adult | CPT/HCPCS: 90471; 90714 ==

== ENCOUNTER 2025-05-20 10:01 | Outpatient (AMB) | payer OTHER, SELFPAY ==
--- NOTE | 2025-05-20 10:05 | MHC.OFFVIS ---
Vital Signs 05/20/25 10:06 Height 5 ft 6 in Weight 163 lb 2 oz BMI 26.3 BP 122/80 Blood Pressure Location Lt brachial Position Sitting Pulse 76 Pulse Source Pulse Oximeter Pulse Oximetry (%) 100 Oxygen Delivery Method Room Air Intake Visit Reasons: 2 mo follow up Intake Note: Patient presents follow up Cognitive medication. Labs/MRI in chart. Patient states has had hives since Monday and have been getting worse over time(Has not changed anything). Takes Benadryl and somewhat goes away then comes back. States doesn't want to be on sertraine makes her feels groggy. Accompanied by: Spouse Allergies No Known Allergies Allergy (Verified 05/20/25 10:09) HPI Comments Details: 54y/o female comes for evaluation of memory issues, word finding difficulties. Luis and her niece are here and help with history today. Interval Med. Hx Hives back of legs for one week taking benadryl - wheels from the hamstring down the back of legs to the ankles for one week. She says Sertraline makes her groggy and would like to discontinue it, we discussed tapering off she has a vibration like feeling when taking it. 25mg for the next 2 weeks, than 12.5mg for the following 2 weeks, slow gradual taper over the course of 4-6 weeks. March 21, 2025 MRI Reviewed with pt today, demyelination of bifrontal parietal lobes. She started noticing difficulties with memory in the past 4-5 years. She feels her cognition is worsening. 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 She is depressed because of her cognitive changes. Denies visual changes or blurry vision. She had 2 falls once missed a step and second was in the kitchen at her house. she has executive difficulties- forgets directions to familiar places,has problem with following directions, trouble with processing information, spelling, could not remember social security etc. she cries during the interview. Recall is poor and forgets words. She has to stop and think about words. She says she is much better with one on one communications. She has some trouble with various apps on her phone, easily gets distracted, loses focus, never diagnosed with ADHD. She frequently misplaces and cannot find things, for example croutons and dishes in the same cupboard. She is on hormone replacement for post menopause. She used to be very organized. She sleeps ok wakes up several times during the night, wakes up at 1:30am, 2:30am, and 4:30am. She listens to autopsy podcasts prior to falling asleep. She has some snoring and feels groggy during daytime. SHe had a minor head injury when she had a near syncope event at work last May 2025, she felt her entire body over heating, started to sweat profusely, left the office and fell to the floor, had a bump on her head for a while. [facility] Medical History Cognitive impairment Shoulder pain, left Family history of polyps in the colon Pre-op examination Colon cancer screening Cervical cancer screening Breast cancer screening Surgical History Hx of colonoscopy Family History Mother Lung cancer Father Skin cancer CVA (cerebral vascular accident) Sister No problems noted. Sister No problems noted. Sister Mental health disorder Daughter No problems noted. 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 Sexual orientation: Straight/Heterosexual Gender identity: Female Cognitive needs: No Hearing needs: No Vision needs: Yes (Glasses) Female Reproductive History Menstrual Age of Menarche: 12 Physical Exam Vital Signs: Last Vital Signs Pulse 76 05/20/25 10:06 BP 122/80 05/20/25 10:06 Pulse Ox 100 05/20/25 10:06 Oxygen Delivery Method Room Air 05/20/25 10:06 BMI result Body Mass Index 26.3 Const General: cooperative and anxious Nutritional Appearance: average body habitus Orientation/consciousness: patient oriented x3 HEENT Face and sinus: Yes face symmetric Teeth and gingiva: other (mallampti score of 3) Eyes Pupils: Equal, round and reactive pupils present Neck Neck: Yes full ROM Resp Effort & Inspection: normal respiratory effort and able to speak in complete sentences Neuro Other: upper extremity l>r. tremors General: patient oriented x3 and moves all extremities Cranial nerves: Yes Equal, round and reactive pupils present, Yes Normal accommodation reflex present, Yes Normal facial strength present, Yes Midline tongue present, Yes Ability to bilaterally rotate head present and Yes Ability to bilaterally elevate shoulders present Motor exam (neuro): 5/5 motor strength present throughout and Normal motor muscle tone present throughout Coordination: [id number] test normal (tremors) Psych Speech and movement: Slowed speech present (Psych) Affect: Anxious affect present Orientation What is the (year) (season) (date) (day) (month)?: year, season and month Where are we (state) (county) (town or city) (hospital) (floor)?: state, county, town or city, hospital/clinic and floor Registration Name of 3 unrelated objects clearly and slowly, then ask patient to repeat all 3 of them. (1st repeat determines score. Make sure they can repeat all three): object 1, object 2 and object 3 Attention & Calculation (CHOOSE ONE) Spell WORLD backwards (DLROW): 5 letters Recall Ask patient to repeat the 3 items from question #3.: object 1, object 2 and object 3 Language Show patient a wristwatch & ask what it is. Repeat for pencil.: watch and pencil Ask the patient to repeat the phrase 'No ifs, ands, or buts' after you.: correct Ask the patient to 'take a piece of paper with their right hand' 'fold paper in half' 'place paper on floor': take paper in right hand, fold paper in half and place paper on floor Print the sentence 'CLOSE YOUR EYES' on a piece. If patient actually closes eyes then score.: followed written direction Give patient a blank piece of paper & ask to write a sentence. Score if it contains a noun & verb.: sentence contains subject and verb Score Score: 27 Results Reviewed Results Reviewed: MR/MR head/brain wo con IMPRESSION: Nonspecific white matter disease. Demyelination cannot be entirely excluded. Questionable artifactual versus FLAIR signal abnormality right ventral medulla oblongata which could favors demyelination versus lymphoproliferative disorder. Bifrontal parietal lobe atrophy . Assessment & Plan Assessment & Plan (1) Excessive daytime sleepiness: Code(s): G47.19 - Other hypersomnia Category: Medical (2) Stuttering: Code(s): F80.81 - Childhood onset fluency disorder Category: Medical (3) Cognitive and behavioral changes: Comment: demyelination MRI / falls/ MS? Code(s): R41.89 - Other symptoms and signs involving cognitive functions and awareness; R46.89 - Other symptoms and signs involving appearance and behavior Category: Medical (4) Memory impairment: Comment: MMSE 27/30 Code(s): R41.3 - Other amnesia Category: Medical Plan PSG r/o matt cognitive and behavioral changes MRI brain with gadolinium to r/o structural causes- demyelinating pathologies. Visual Evoked Potential Labs Check Vit B12 is elevated, take B12 every other day to decrease levels. and ESR normal Continue antidepressant therapy with a slow gradual therapy, to taper off of Sertraline due to S/E of medication, grogginess. F/u psyhcology psychiatry establish a therapeutic relationship with a therapist. [email or web address] therapy [facility]. [employer] adaptogens for stress response. Speech and hearing therapy F/U in 3 months or sooner with Dr[address] Wagner. Orders: Orders Visual evoked potential Today R41.89 - Other symptoms and signs involving cognitive functions and awareness, R46.89 - Other symptoms and signs involving appearance and behavior Vitamin D 25-OH Total Today G47.19 - Other hypersomnia Vitamin B6 Today G47.19 - Other hypersomnia Vitamin B12 and Folate Today G47.19 - Other hypersomnia Complete Blood Count no Diff Today G47.19 - Other hypersomnia Comprehensive Met. Panel Today G47.19 - Other hypersomnia Methylmalonic Acid Today G47.19 - Other hypersomnia, G47.9 - Sleep disorder, unspecified, R53.83 - Other fatigue MR head/brain w con Today R41.89 - Other symptoms and signs involving cognitive functions and awareness, R46.89 - Other symptoms and signs involving appearance and behavior Vitamin B1 Today G47.19 - Other hypersomnia TSH reflex Free T4 Today G47.19 - Other hypersomnia Homocysteine Today G47.19 - Other hypersomnia, G47.9 - Sleep disorder, unspecified, R53.83 - Other fatigue Ferritin Today G47.19 - Other hypersomnia Referrals Speech and Hearing Referral F80.81 - Childhood onset fluency disorder, R41.89 - Other symptoms and signs involving cognitive functions and awareness Patient Instructions: Sleep Hygiene provided: set a scheduled bedtime and wake time to help regulate the circadian rhythm and balance the release of pituitary hormones. Sleep in a dark room, temperatures below 68 degrees, and no devices n bed. Limit caffeinated products 6 hours prior to bed, and limit fluids 2-4 hours prior to bed. Gentle night yoga, diffusing essential oils, and playing soft music can be relaxing. Coding Level of Care Code Est Pt Level 4 (39570) Diagnoses Excessive daytime sleepiness G47.19 Stuttering F80.81 Cognitive and behavioral changes R41.89; R46.89 Memory impairment R41.3
[2025-05-20 10:06] VITALS: BP 122/80; PULSE 76; O2SAT 100; BMI 26.3
--- OUTSIDE RECORDS SUMMARY | 2025-05-20 11:46 | XMS_ITS ---
Author Name [facility] Organization Unknown Care Team Organization Name Specialty Phone Email Start Date End Da te [facility] Termed, PROVIDER Primary Care 07/19/202204/11
== END 2025-05-20 11:09 | disposition home or self-care (01) ==
LOC: HO.HSMS 10:02
PROVIDERS: PCP Internal Medicine; Visit Provider Physician Assistant Medical
DX: G47.19 Other hypersomnia (principal); F80.81 Childhood onset fluency disorder; R41.89 Other symptoms and signs involving cognitive functions and awareness; R46.89 Other symptoms and signs involving appearance and behavior; R41.3 Other amnesia
CPT/HCPCS: 99214

== ENCOUNTER 2025-05-21 10:21 | Outpatient (REF) | payer OTHER, SELFPAY ==
[2025-05-21 11:14] LABS: Hematocrit 37.6 % (37.0-47.0); Hemoglobin 12.5 g/dl (12.0-16.0); Mean Corpuscular HGB Conc 33.2 g/dl (31.0-35.0); Mean Corpuscular Hemoglobin 30.0 pg (27.0-33.0); Mean Corpuscular Volume 90.2 fL (80.0-98.0); NRBC Abs Auto 0.000 X10*3/uL (0.0-0.012); NRBC Pct Auto 0.0 /100WBC (0.0-0.2); Platelet Count 256 X10*3/uL (160-400); Red Blood Count 4.17 X10*6/uL (4.20-5.50); White Blood Count 5.4 X10*3/uL (4.8-10.8)
[2025-05-21 12:03] LABS: Alanine Aminotransferase 19 U/L (0-31); Albumin Level 3.5 g/dL (3.5-5.0); Alkaline Phosphatase 48 U/L (39-117); Anion Gap 11 (12-20); Aspartate Amino Transferase 29 U/L (5-31); Blood Urea Nitrogen 21 mg/dL (9-16); Calcium 8.6 mg/dL (8.4-10.2); Carbon Dioxide 22 mmol/L (22-29); Chloride 112 mmol/L (96-108); Estimated Glomerular Filt Rate 60; Potassium 3.9 mmol/L (3.3-5.1); Sodium 141 mmol/L (135-145); Total Protein 5.5 g/dL (6.5-8.0)
[2025-05-21 12:22] LABS: Folate 13.5 ng/mL (> or = 4.0); Vitamin B12 721 pg/mL (200-900)
[2025-05-21 12:26] LABS: Ferritin 28 ng/mL (10-250)
== END 2025-05-21 10:22 | disposition home or self-care (01) ==
LOC: HO.LAB 10:21
PROVIDERS: PCP Internal Medicine; Visit Provider Physician Assistant Medical
DX: G47.19 Other hypersomnia (principal); R53.83 Other fatigue; G47.9 Sleep disorder, unspecified; L50.9 Urticaria, unspecified; Z79.899 Other long term (current) drug therapy
CPT/HCPCS: 36415; 80053; 82306; 82607; 82728; 82746; 83090; 83921; 84207; 84425; 84443; 85027

== ENCOUNTER 2025-05-21 12:48 | Outpatient (AMB) | payer OTHER, SELFPAY ==
--- NOTE | 2025-05-21 12:54 | A.OFFPC_ITS ---
Vital Signs 05/21/25 12:55 Height 5 ft 6 in Weight 161 lb 2 oz BMI 26.0 BP 140/64 H Blood Pressure Location Rt brachial Position Sitting Pulse 93 Pulse Source Pulse Oximeter Temp 97.3 F Temp Source Temporal Artery Scan Pulse Oximetry (%) 98 Oxygen Delivery Method Room Air Intake Visit Reasons: Hives for 4 days head to toe Intake Note: Patient is here to follow up on Hives for 4 days head to toes. Outside Salesman Required: No Blaster Helper: Not Required per policy Accompanied by: Self / Same As Patient Allergies No Known Allergies Allergy (Verified 05/21/25 12:55) Medication List - Last Reconciled 05/21/25 by Steven Avery MD cholecalciferol (vitamin D3) 125 mcg PO DAILY estradiol 1 patch transdermal 2XW ferrous sulfate (Feosol) 325 mg PO DAILY magnesium 250 mg PO DAILY multivitamin 1 tab PO DAILY naproxen 500 mg PO BID progesterone micronized 200 mg PO BEDTIME sertraline 50 mg PO DAILY Tobacco use date assessed: 05/21/25 Dental Screening Dental Screen Date: 02/07/25 HPI HPI Comments History of Present Illness Details The patient is a 54-year-old female presenting with urticaria. The hives began approximately three days ago, initially thought to be mosquito bites, and have since spread across various body parts including the face, arms, and legs. The patient has been taking Benadryl. The patient reports that the hives are intensely itchy, and the itching is exacerbated when the effect of Benadryl wears off. There is no associated shortness of breath or swelling of the lips or face, although the patient experienced a sensation of a sore throat, which resolved with Benadryl. The patient denies any new medications, foods, or environmental changes that could have triggered the hives, and she has a history of seasonal allergies managed with [id number] antihistamines. [facility] Medical History Cognitive impairment Shoulder pain, left Family history of polyps in the colon Pre-op examination Colon cancer screening Cervical cancer screening Breast cancer screening Surgical History Hx of colonoscopy Family History Mother Lung cancer Father Skin cancer CVA (cerebral vascular accident) Sister No problems noted. Sister No problems noted. Sister Mental health disorder Daughter No problems noted. 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 [employer] Sexual orientation: Straight/Heterosexual Gender identity: Female Cognitive needs: No Hearing needs: No Vision needs: Yes (Glasses) Female Reproductive History Menstrual Age of Menarche: 12 Questionnaire Thrive Questionnaire Date Thrive assessed: 01/31/25 I am a: Patient What is your living situation today?: I have a steady place to live Within the past 12 months, did the food you bought not last and you didn't have the money to get more?: Never true Within the past 12 months, did you worry whether your food would run out before you got money to buy more?: Sometimes True Do you have trouble paying for medicines?: No Do you have trouble getting transportation to medical appointments?: No Do you have trouble paying your heating and electricity bill?: No Do you have trouble taking care of your child, family member or friend?: No Do you have trouble with day-to-day activities such as bathing, preparing meals, shopping, managing finances, etc.?: I choose not to answer this question Are you currently unemployed and looking for a job?: Yes Are you interested in more education?: Yes Currently or been in a relationship where the following occur: No concerns re ported THRIVE Score: 1 JEANETTE-7 AMB Questionnaire JEANETTE-7 Date JEANETTE - 7 assessed: 02/07/25 Source: Developed by Drs. Lance Pittman, Celeste Duckworth, Nikko Joyner and colleagues, with an educational daniella from [employer] Review of Systems Const Details: Positives besides what was mentioned in HPI are in BOLD Constitutional: No Weight Change, No Fever, No Chills, No Night Sweats, No Fatigue, No Malaise ENT/Mouth: No Hearing Changes, No Ear Pain, No Nasal Congestion, No Sinus Pain, No Hoarseness, No sore throat, No Rhinorrhea, No Swallowing Difficulty Eyes: No Eye Pain, No Swelling, No Redness, No Foreign Body, No Discharge, No Vision Changes Cardiovascular: No Chest Pain, No SOB, No PND, No Dyspnea on Exertion, No Orthopnea, No Claudication, No Edema, No Palpitations Respiratory: No Cough, No Sputum, No Wheezing, No Smoke Exposure, No Dyspnea Gastrointestinal: No Nausea, No Vomiting, No Diarrhea, No Constipation, No Pain, No Heartburn, No Anorexia, No Dysphagia, No Hematochezia, No Melena, No Flatulence, No Jaundice Genitourinary: No Dysmenorrhea, No DUB, No Dyspareunia, No Dysuria, No Urinary Frequency, No Hematuria, No Urinary Incontinence, No Urgency, No Flank Pain, No Urinary Flow Changes, No Hesitancy Musculoskeletal: No Arthralgias, No Myalgias, No Joint Swelling, No Joint Stiffness, No Back Pain, No Neck Pain, No Injury History Skin: No Skin Lesions, No Pruritis, No Hair Changes, No Breast/Skin Changes, No Nipple Discharge Neuro: No Weakness, No Numbness, No Paresthesias, No Loss of Consciousness, No Syncope, No Dizziness, No Headache, No Coordination Changes, No Recent Falls Psych: No Anxiety/Panic, No Depression, No Insomnia, No Personality Changes, No Delusions, No Rumination, No SI/HI/AH/VH, No Social Issues, No Memory Changes, No Violence/Abuse Hx., No Eating Concerns Heme/Lymph: No Bruising, No Bleeding, No Transfusions History, No Lymphadenopathy Endocrine: No Polyuria, No Polydipsia, No Temperature Intolerance Physical exam (Primary Care) Vital Signs: Last Vital Signs Temp 97.3 F 05/21/25 12:55 Pulse 93 05/21/25 12:55 BP 140/64 H 05/21/25 12:55 Pulse Ox 98 05/21/25 12:55 Oxygen Delivery Method Room Air 05/21/25 12:55 BMI result Body Mass Index 26.0 Tobacco/Smoking Status: Tobacco use Status Tobacco use date assessed 05/21/25 05/21/25 13:01 Patient Tobacco Use Status Never used Tobacco 05/21/25 13:01 e-Cigarette/Vaping Use Never Used 05/21/25 13:01 Thrive Assessment: Date of Thrive Assessment Date Thrive assessed 01/31/25 05/21/25 13:01 Currently or been in a relationship where the following occur: No concerns reported Const Other: Pertinent findings are in BOLD GENERAL APPEARANCE NAD, activity normal for age, well developed/ well nourished, no cyanosis, pallor, or diaphoresis. EYES lids/conjunctiva normal. EARS/NOSE/THROAT Mucous membranes moist, nares normal, lips/teeth normal uvula midline without oral pharyngeal erythema, exudate or swelling TMs normal bilaterally. No lymphangitis/lymphedema. HEAD/NECK normocephalic atraumatic, no facial trauma, neck is supple. RESPIRATORY respiratory effort normal, speaks in full sentences, no tripod pos ition, no accessory muscle use. Lungs clear to auscultation without rhonchi, wheezes, rales CARDIAC Regular rate and rhythm, no edema. ABDOMINAL Soft, ND/NT. No evidence of fluid wave. No pulsatile masses on exam, rebound tenderness, Boothe sign or pain over Mcburney's point. MUSCLES/EXTREMITIES No abnormal range of motion, no swelling. SKIN Warm, pink and dry. Hives on upper arms, thighs, and chest. NEUROLOGICAL Speech is clear and appropriate. Normal level of consciousness. Gait and coordination are normal. 5/5 strength in all extremities. PSYCH Normal mood and affect. Judgement/competence is appropriate Coding Level of Care Code Est Pt Level 1 (46297) Diagnoses Urticaria L50.9 Assessment & Plan Assessment & Plan (1) Urticaria: Code(s): L50.9 - Urticaria, unspecified Category: Medical Plan: Loratidine 20 mg BID. (maximum dose of 40 mg Daily). Allergy refferal placed and patient can cancel the appointment in case her symptoms improve with Loratidine. Patient instructed to call the clinic in case her symptoms don't improve with anti-histamine. Plan I discussed with the patient that the urticaria is likely acute and manageable with antihistamines. I explained that if the condition persists, a referral to an head bookkeeper will be necessary for further evaluation. I reassured the patient that urticaria is not life-threatening and encouraged her to monitor her symptoms and communicate any concerns. Orders: Referrals Allergy & Immunology Referral L50.9 - Urticaria, unspecified Medications: New colloidal oatmeal 1% (Cetaphil Eczema Restoraderm) 1 ea topical .PRN PRN 473 mL 0RF itching loratadine (Allergy Relief (loratadine)) 10 mg PO BID 60 tabs 2RF 30 days MDD 40 mg
[2025-05-21 12:55] VITALS: BP 140/64; PULSE 93; TEMP 36.3; O2SAT 98; BMI 26.0
== END 2025-05-21 13:21 | disposition home or self-care (01) ==
LOC: HO.HMCH 12:49
PROVIDERS: PCP Internal Medicine; Visit Provider Internal Medicine
DX: L50.9 Urticaria, unspecified (principal)

== ENCOUNTER 2025-07-23 10:21 | Outpatient (RCR) | payer OTHER, SELFPAY ==
--- NOTE | 2025-07-24 16:02 | MHC.SP.ADU ---
Referring provider: Emma MORALES Reason for Referral: Cognitive Impairment Type of Treatment: 95752 Standardized Cognitive Performance Testing, per hour Date of Plan of Treatment: 07/23/25 Onset of Symptoms/Illness: 05/20/25 Date Treatment Started: 07/23/25 Medical Diagnosis: R41.89 Other symptoms and signs involving cognitive functions and awareness Primary Speech Language Diagnosis: R41.841 Cognitive communication disorder Secondary Speech Language Diagnosis: I69.911 Memory deficit History Keena is a 54 year old female who was referred to [facility] from [facility] for an Adult Speech Language Cognition evaluation. Per referral note, Keena has many concerns/complaints about her cognition; ?She started noticing difficulties with memory in the past 4-5 years? she has executive difficulties- forgets directions to familiar places, has problems with following directions, trouble with processing information, spelling, could not remember social security, etc.?. Recall is poor and forgets words. She has to stop and think about words. She says she is much better with one on one communications. She has some trouble with various apps on her phone, easily gets distracted, loses focus, never diagnosed with ADHD. She frequently misplaces and cannot find things.? Most recent MRI (03/21/25) showing demyelination of bilateral parietal lobes. 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 She reports that the company did not state a reason, but she has a feeling it has to do with her cognitive abilities. She has started job searching but reports anxiety with ability to carry out requirements of jobs due to her cognition. Keena reports that she used to be outgoing, but has since limited social interactions because familiar communication partners get annoyed with her repeating herself or not remembering conversations. She finds her cognition difficulties both embarrassing and frustrating. Keena currently lives in a private residence with her . When asked why she wanted to be evaluated, Keena wrote ?I?m having trouble with speaking and understanding things, memory + recall.? and commented during evaluation; ?I can?t remember anything.? Medical History: Allergies, Cognitive impairment, L shoulder pain, Migraines Recent Hospitalizations: No Respiratory Needs: Room Air Patient Orientation: Alert & Oriented x 4 Social History: Employment Status: Unemployed Highest level of education obtained: Completed High School/GED Current Living Situation: Keena currently lives in a private residence with her Assistive Devices in use: Glasses/Contacts Other Therapies Seen in Current Calendar Year: None Reported Speech, Language, Cognition difficulties: Attention Memory Cognition Speaking Comments: When asked why she wanted to be evaluated, Keena wrote ?I?m having trouble with speaking and understanding things, memory + recall.? and commented during evaluation; ?I can?t remember anything.? Quality of Life: Based off of patient interview and intake form; Keena's cognitive difficulties have a mild-moderate impact on her every day life Patient Stated Goal of Speech-Language Therapy: Improve cognitive-communication difficulties. Assessment Tests of Cognition: RBANS Clinical Impression: Impaired Observations: Keena completed the Repeatable Battery for the Assessment of Neuropsychological Status (RBANS) IMMEDIATE MEMORY: This domain assesses the individual?s ?ability to remember information immediately after it is presented.? For the ?List Learning? task, Keena was read a list of 10 words and asked to repeat back as many words as she could. She was read the same list four times. On the first trial, Keena was able to immediately recall 2/10 words. In the second trial, she was able to recall 5/10 words. On the third trial, she was able to recall 7/10 words. In the fourth and last trial, she was able to recall 7/10 words. Keena had some repetition of words and would ask, ?Did I say ___ already?? On the ?Story Memory? task, a brief story is read by the examiner two times, with the subject required to repeat back as much as they remember each time. Keena initially recalled 7/12 items. Keena recalled the same amount of items on the second trial. The scores on ?List Learning? fell into the Borderline range and the scores on the ?Story Memory? fell into the Low Average range. Both scores, cumulatively on the composite score for Immediate Memory were Borderline, indicating an area of significant struggle for Keena. List Learning Scaled Score: 5 Interpretation: Borderline Story Memory Scaled Score: 6 Interpretation: Low Average Immediate Memory Index Score: 76 Interpretation: Borderline VISUOSPATIAL/CONSTRUCTIONAL: This domain assesses the individual?s ?ability to perceive spatial relations and to construct a spatially accurate copy of a drawing.? During the Figure Copy task, Keena was given an example of a specific figure to copy onto a piece of paper. Individuals are scored on both the drawing accuracy and placement of 10 different target items. Keena?s drawing was very accurate to the example drawing; demonstrating an Average score. Keena also demonstrated good accuracy on the Line Orientation task, in which an individual is asked to transpose two line segments of an angle to a compass diagram above it, in order to label each segment. Her score fell into the Average-High Average range. Both scores, cumulatively on the composite score for Visuospatial/Constructional were Average, indicating no difficulties in the area. Figure Copy Scaled Score: 11 Interpretation: Average Line Orientation Percentile Group: 51-75 Interpretation: Average-High Average Visuospatial/Constructional Index Score: 109 Interpretation: Average LANGUAGE: This domain assesses the individual?s ?ability to respond verbally to either naming or retrieving learned material.? Keena was asked to label various line drawings in responsive naming tasks and then asked to name as many animals as she could in one minute in a Semantic Fluency task. Keena accurately and rapidly named 10 out of 10 drawings, noted delayed response on last line drawing, demonstrating an Average-High Average score. She labeled 10 animals in one minute, demonstrating a Borderline on this subtest. Scores combined resulted in a Low Average score for the Language Domain, indicating an area of difficulty for Keena. Picture Naming Percentile Group: 51-75 Interpretation: Average-High Average Semantic Fluency Scaled Score: 5 Interpretation: Borderline Language Index Score: 84 Interpretation: Low Average ATTENTION: This domain assesses the individual?s ?capacity to remember and manipulate both visually and orally presented information in short-term memory storage.? Keena was read aloud strings of numbers of varying lengths then asked to recall the numbers. She accurately recalled strings of numbers up to 5 digits with no difficulties, but then began to scramble with 6 digits, resulting in a Low Average score. In the coding subtest, Keena was asked to write numbers to their matching symbols as quickly and efficiently as possible within 90 seconds. Keena worked quickly and accurately through this test marking 45 symbols in allotted time, which yielded an Average score. For the overall ?Attention? domain score, Keena fell in the Low Average range, indicating an area of difficulty for Keena. Digit Span Scaled Score: 6 Interpretation: Low Average Coding Scaled Score: 10 Interpretation: Average Attention Index Score: 88 Interpretation: Low Average DELAYED MEMORY: This domain assesses the individual?s ?anterograde memory capacity.? ?Low scores indicate difficulties with recognition and retrieval of information from long-term memory stores.? Keena was initially able to recall 5 out of 10 words from the wordlist that was presented earlier in the test. When given a recognition task regarding words on the list (i.e. ?Was apple on the list??) Keena answered some of these yes/no questions incorrectly, indicating that was unable to recall some items when given this level of prompt.She demonstrated within a Low Average-Average range for List Recall and an Extremely Low range for List Recognition. On recalling the story that was read to Keena at the beginning of the assessment, she was able to recall 8 out of 12 items. Placing her in an Average range. Finally, when asked to recall the figure she lissette at the beginning of the test. Keena had incorrect placements for items and many missing items.. This placed Keena in the Borderline range for Figure Recall. Overall for the Delayed Memory? domain, Keena fell in the Extremely Low range, indicating an area of significant struggle for Keena. List Recall Percentile Group: 26-50 Interpretation: Low Average-Average List Recognition Percentile Group: =2 Interpretation: Extremely Low Story Recall Scaled Score: 8 Interpretation: Average Figure Recall Scaled Score: 5 Interpretation: Borderline Delayed Memory Index Score: 68 Interpretation: Extremely Low Summary/Conclusion Keena required some encouragement throughout the test to complete all subtests. She provided extensive information and answered all questions during the evaluation. Keena shows strengths in Visuospatial/Constructional as she tests Average for this domain. Areas of difficulties where Keena tested Low Average were in the domains of Language and Attention. Areas of significant struggle were in domains of Immediate Memory and Delayed Memory. Keena was noted to not take many risks during the evaluation. If she did not know an answer, she would simply not try. Keena presents with mild-moderate needs with immediate memory, remote recall of information, attention, and language, all of which are impacting her working memory and processing/learning new information. Keena indicated an interest in working on strategies and skills though cognitive therapy; especially since she is currently looking for a job and has anxiety towards job requirements due to cognitive difficulties. It is recommended that Keena return for therapy to address compensatory strategies for her needs, as well as additional standardized language assessment to evaluate impact of language difficulties on cognitive functioning. Therapy is recommended for one forty five minute session weekly for a period of 6-8 weeks. Impressions and Recommendations Summary: Keena is a 54 year old female who presents with mild-moderate cognitive impairment. She is recommended outpatient speech therapy 1x wk 45 minute sessions for 6-8 weeks to train compensatory strategies for cognitive difficulties in areas of immediate memory, delayed memory, attention, and language. Recommendation for Speech Therapy: Further Testing Needed Outpatient Speech Therapy Frequency/Duration: 1x/wk 45 minute sessions Date Range for Service Requested: 6-8 weeks Time to Reassess: PRN Senior Care Goals: LTG 1: Keena will apply strategies, applications and accommodations to manage communication and functional tasks that require immediate and/or delayed recall and processing in four out of five contexts LTG 2: Keena will complete a standardized language assessment (such as WAB-R, BDAE, etc.) to 100% to evaluate the impact of language on cognitive functioning Short Term Goals: Goal # : 1.1 Keena will recall paragraph-level information and answer questions about the material with 80% accuracy given occasional visual cues. 1.2 Keena will recall 5 or more items with 80% accuracy after a 10 minute delay given minimal verbal cues. Goal Status: New Goal Goal# : 1.3 Keena will identify and recall specific compensatory strategies that aid in her everyday functional tasks with 80% accuracy given minimal cues. 1.4 Keena will use visualization techniques to recall a detail or specific information from visually presented with 80% accuracy given minimal cues Goal Status: New Goal Recommended Referrals to be Discussed with Primary Care Provider: Neuropsychological Eval Patient Education: Completed: Yes Patient/Caregiver Education: Described Results of Evaluation Patient expressed understanding of evaluation Patient agrees with goals and treatment plan Machine Coil Assembler Clinican/Clinical Fellow: No Supervisory Statement: No Speech Language Pathologist: [place] Salvador M.A., CCC-FITNESS CENTRE MANAGER
== END 2025-09-08 13:46 | disposition still patient (30) ==
LOC: HO.SH 10:21
PROVIDERS: PCP Internal Medicine; Visit Provider Physician Assistant Medical
DX: R41.89 Other symptoms and signs involving cognitive functions and awareness (principal); F80.81 Childhood onset fluency disorder
CPT/HCPCS: 96125

== ENCOUNTER 2025-08-01 13:38 | Outpatient (AMB) | payer OTHER, SELFPAY ==
[2025-08-01 13:40] VITALS: BP 132/86; PULSE 74; TEMP 36.2; O2SAT 99; BMI 26.6
--- NOTE | 2025-08-01 13:40 | MHC.PC.OV ---
Vital Signs 08/01/25 13:40 Height 5 ft 6 in Weight 165 lb 2 oz BMI 26.6 BP 132/86 Blood Pressure Location Lt brachial Position Sitting Pulse 74 Pulse Source Pulse Oximeter Temp 97.1 F Temp Source Temporal Artery Scan Pulse Oximetry (%) 99 Oxygen Delivery Method Room Air Intake Visit Reasons: cognitive impairment Allergies No Known Allergies Allergy (Verified 08/01/25 13:42) Tobacco use date assessed: 08/01/25 Dental Screening Dental Screen Date: 08/01/25 Did you have a dental visit in the last 12 months?: Yes Did you have a dental problem in the last 6 months where you did not have access to dental care?: No Was dental information given to patient?: Patient has dentist HPI cognitive impairment HPI Details hives better. workup pending . sleep study pending. speech and hearing notes appreciated HPI Comments History of Present Illness Details History of Present Illness The patient is a 54-year-old individual presenting for a follow-up visit. The patient has been undergoing evaluation for cognitive impairment and has been seen by neurology. An MRI of the brain in March 2025 revealed nonspecific white matter disease, where demyelination could not be excluded, along with findings in the right ventral medulla oblongata favoring demyelination versus a lymphoproliferative process, and bifrontal/parietal or lumbar atrophy. A speech and hearing evaluation identified mild to moderate cognitive deficits. These cognitive issues have impacted the patient's employment, leading to being fired from a job, and have caused frustration within the patient's family, as both the and other family members do not understand the condition. The patient was seen for hives in May and was treated with loratadine for two weeks, which led to the resolution of the rash. A referral was made to allergy/immunology, but the patient did not attend the appointment because the symptoms had resolved. Past medical history includes ADHD, urinary retention, and a sessile serrated polyp found during a colonoscopy in November 2023. The patient desired to stop taking sertraline, reporting it was not helping with talking. Recent blood work from May 21 showed a normal blood count, electrolytes, renal function, glucose, liver function, and thyroid levels. A sleep study has been recommended to investigate fatigue and to rule out a sleep disorder as a contributor to cognitive symptoms. Health Maintenance The patient's immunization status was reviewed, noting that tetanus and shingles are up to date. The influenza vaccine was recommended, but the patient deferred it at this visit. Screening status was also reviewed, with mammography being current and colonoscopy last performed in November 2023. Social History - Employment: The patient was fired from a previous job and is starting a new position. - The patient expressed concern that cognitive problems may create difficulties in holding a job. - Social Support: The patient's and other family members are reportedly frustrated and do not fully understand the patient's cognitive deficits. - The patient's niece, who is a nurse, attended a previous neurology appointment for support. Results - Labs (May 21): Normal blood count, electrolytes, renal function, glucose, liver function, and thyroid function. - Brain MRI (March 2025): Showed nonspecific white matter disease where demyelination could not be entirely excluded; findings in the right ventral medulla oblongata favored demyelination versus a lymphoproliferative process; and bifrontal/parietal or lumbar atrophy was noted. - Colonoscopy (November 2023): A sessile serrated polyp was found. - Speech and Hearing Evaluation: Results indicated mild to moderate cognitive impairment. [facility] Medical History Cognitive impairment Shoulder pain, left Family history of polyps in the colon Pre-op examination Colon cancer screening Cervical cancer screening Breast cancer screening Surgical History Hx of colonoscopy Family History Mother Lung cancer Father Skin cancer CVA (cerebral vascular accident) Sister No problems noted. Sister No problems noted. Sister Mental health disorder Daughter No problems noted. 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 1. Little interest or pleasure in doing things: several days 2. Feeling down, depressed, or hopeless: several days 3. Trouble falling or staying asleep, or sleeping too much: not at all 4. Feeling tired or having little energy: several days 5. Poor appetite or overeating: more than half the days 6. Feeling bad about yourself - or that you are a failure or have let yourself or your family down: several days 7. Trouble concentrating on things, such as reading the newspaper or watching television: nearly every day 8. Moving or speaking so slowly that other people could have noticed. Or the opposite - being so fidgety or restless that you have been moving around a lot more than usual: more than half the days 9. Thoughts that you would be better off or of hurting yourself in some way: not at all Total score: 11 Depression Screening Interpretation: Positive (recent life stress ) Depression Screening Follow-up: Declines treatment Depression Screening Done: Yes Source: Developed by Drs. Lance Pittman, Celeste Duckworth, Nikko Joyner and colleagues, with an educational daniella from [employer]. Thrive Questionnaire Date Thrive assessed: 01/31/25 I am a: Patient What is your living situation today?: I have a steady place to live Within the past 12 months, did the food you bought not last and you didn't have the money to get more?: Never true Within the past 12 months, did you worry whether your food would run out before you got money to buy more?: Sometimes True Do you have trouble paying for medicines?: No Do you have trouble getting transportation to medical appointments?: No Do you have trouble paying your heating and electricity bill?: No Do you have trouble taking care of your child, family member or friend?: No Do you have trouble with day-to-day activities such as bathing, preparing meals, shopping, managing finances, etc.?: I choose not to answer this question Are you currently unemployed and looking for a job?: Yes Are you interested in more education?: Yes Currently or been in a relationship where the following occur: No concerns reported THRIVE Score: 1 AUDIT C Alcohol Use Questionnaire (AUDIT-C) 1. How often do you have a drink containing alcohol?: Monthly or less 2. How many drinks containing alcohol do you have on a typical day when you are drinking?: 1 or 2 3. How often do you have six or more drinks on one occasion?: Never Total Score: 1 JEANETTE-7 AMB Questionnaire JEANETTE-7 Date JEANETTE - 7 assessed: 02/07/25 Feeling nervous, anxious, or on edge: 3 = Nearly every day Not being able to stop or control worryin = Several days Worrying too much about different things: 1 = Several days Trouble relaxin = More than half the days Being so restless that it is hard to sit still: 1 = Several days Becoming easily annoyed or irritable: 0 = Not at all Feeling afraid as if something awful might happen: 1 = Several days Total JEANETTE-7 score (0-4 normal; 5-9 mild; 10-14 moderate; 15-21 severe): 9 Source: Developed by Drs. Lance Pittman, Celeste Duckworth, Nikko Joyner and colleagues, with an educational daniella from [employer]. Review of Systems Narrative Review of Systems - General: Reports feeling tired and being overweight. - Dermatologic: Denies current rashes or hives. - Neurological: Reports cognitive changes and memory problems. - Psychiatric: Denies excessive worry. Physical exam (Primary Care) Vital Signs: Last Vital Signs Temp 97.1 F 08/01/25 13:40 Pulse 74 08/01/25 13:40 BP 132/86 08/01/25 13:40 Pulse Ox 99 08/01/25 13:40 Oxygen Delivery Method Room Air 08/01/25 13:40 BMI result Body Mass Index 26.6 Tobacco/Smoking Status: Tobacco use Status Tobacco use date assessed 08/01/25 08/01/25 13:44 Patient Tobacco Use Status Never used Tobacco 08/01/25 13:44 e-Cigarette/Vaping Use Never Used 08/01/25 13:44 PHQ-9: PHQ-9 Score PHQ-9: Total score 11 08/01/25 13:54 Depression Screening Interpretation: Positive (recent life stress ) Depression Screening Follow-up: Declines treatment Thrive Assessment: Date of Thrive Assessment Date Thrive assessed 01/31/25 08/01/25 13:44 Currently or been in a relationship where the following occur: No concerns reported Narrative Physical Exam - General: Patient is an overweight individual. - Vitals: Blood Pressure 132/86 mmHg. - Cardiovascular: Heart auscultated. - Respiratory: Lungs auscultated. Const General: alert; No acute distress Eyes Conjunctivae: conjunctivae normal Resp Auscultation: clear to auscultation bilaterally Cardio Rate: regular rate Rhythm: regular rhythm GI Inspection: Yes normal to inspection Extrem General: Yes normal to inspection and No edema Coding Level of Care Code Est Pt Level 4 (58558) Diagnoses Memory impairment R41.3 Excessive daytime sleepiness G47.19 Urticaria L50.9 Assessment & Plan Assessment & Plan (1) Memory impairment: Comment: MMSE 2730 Code(s): R41.3 - Other amnesia Category: Medical Plan: Patient is being seen by Neurology in being evaluated. (2) Excessive daytime sleepiness: Code(s): G47.19 - Other hypersomnia Category: Medical Plan: Sleep study was requested (3) Urticaria: Code(s): L50.9 - Urticaria, unspecified Category: Medical Plan: Patient has missed out multiple schedules with market research associate. On loratadine. RESOLVED! Plan Plan Patient was informed and verbally consented to the use of an ambient scribe for clinic note documentation during this visit. 1. Cognitive Impairment The etiology of the patient's cognitive impairment remains under investigation, with MRI findings of nonspecific white matter disease and possible demyelination and a speech and hearing evaluation confirming [id number] deficits. A sleep disorder is being considered as a possible contributor to fatigue and cognitive symptoms. An at-home sleep study will be ordered. A referral to a neuropsychiatrist will be renewed for a more extensive evaluation to establish a clearer diagnosis. The patient will continue follow-up with neurology, with the next appointment scheduled for September 05. 2. Urticaria The patient reports a recent history of hives that have resolved with a two-week course of loratadine and are not currently present. The patient can continue to use loratadine as needed. No further specialist follow-up with allergy/immunology is planned at this time as the condition has resolved. 3. Hypertension The patient's blood pressure was 132/86 mmHg, which was noted as an improvement from the previous reading. Blood pressure will continue to be monitored. Discussion Notes I discussed the ongoing multifaceted evaluation for the patient's cognitive changes, explaining that we are still piecing together various findings, including the brain MRI results and the [id number] deficits found on the speech therapy evaluation. I recommended an at-home sleep study as a simple initial step to investigate if a sleep disorder is contributing to the patient's fatigue and memory problems. I renewed the referral for a neuropsychological evaluation to obtain a more comprehensive workup and a clearer diagnosis. I strongly encouraged the patient to have their attend a future appointment so that I can help explain the diagnosis and its impact, given the patient's report that the family is having difficulty understanding the medical issues. We also reviewed the patient's immunization status and I recommended the flu vaccine, which the patient will consider. Patient Instructions - You will be contacted to schedule an at-home sleep study. - This test will help us determine if your sleep patterns are affecting your memory and energy levels. - We have renewed your referral to a neuropsychiatrist for more detailed memory testing. - Please follow up to schedule this important appointment. - Continue with your follow-up neurology appointment scheduled for September 05. - It is highly recommended that you bring your to a future visit so we can discuss your health situation together. - Your recent hives have resolved, so you do not need to see the data management specialist at this time. - Please consider getting the flu shot soon, as flu season is starting. Orders: Orders RT home sleep study Today G47.19 - Other hypersomnia Referrals Neuropsychiatry Referral R41.89 - Other symptoms and signs involving cognitive functions and awareness, R46.89 - Other symptoms and signs involving appearance and behavior
== END 2025-08-01 14:09 | disposition home or self-care (01) ==
LOC: HO.HMCH 13:39
PROVIDERS: PCP Internal Medicine; Visit Provider Internal Medicine
DX: R41.3 Other amnesia (principal); G47.19 Other hypersomnia; L50.9 Urticaria, unspecified

== ENCOUNTER 2025-09-05 09:01 | Outpatient (AMB) | payer OTHER, SELFPAY ==
[2025-09-05 09:04] VITALS: BP 100/72; PULSE 61; O2SAT 99; BMI 26.0
--- NOTE | 2025-09-05 09:04 | A.OFFVIS_ITS ---
Vital Signs 09/05/25 09:04 Height 5 ft 6 in Weight 161 lb BMI 26.0 BP 100/72 Blood Pressure Location Rt brachial Position Sitting Pulse 61 Pulse Source Pulse Oximeter Pulse Oximetry (%) 99 Oxygen Delivery Method Room Air Intake Visit Reasons: 3 mo follow up Senior Medical Technologist Required: No Accompanied by: Spouse Allergies No Known Allergies Allergy (Verified 08/01/25 13:42) HPI Comments Details: 54y/o l. handed female comes for an evaluation of cognitive deficits, and word f inding difficulties. Luis is here and helps with history today. Interval Med. Hx: She tapered off of Sertraline as it made her feel unlike herself, her personality had changed. March 21, 2025 MRI Reviewed with pt today, demyelination of bifrontal parietal lobes. VEP, testing is pending needs to call and re-schedule, and HST pending needs to call and re-schedule. 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 Denies any recent falls. Cognitive Speech evaluation 07/2025 reviewed in detail with scoring in various domains, she will follow up for 8 weeks of speech therapy per pathologist's findings of deficits in various domains. She denies being depressed and is anxious due to cognitive changes. Denies head aches, visual changes or blurry vision. She has gait and balance difficulties. She has executive difficulties- forgets directions to familiar places, has problems with following directions, trouble with processing information, spelling, could not remember social security etc. Recall is poor and forgets words. She has to stop and think, due to repeating. She says she does much better with one on one communications. She has some trouble with various apps on her phone, easily gets distracted, loses focus, never diagnosed with ADHD. She frequently misplaces and cannot find things, for example croutons and dishes were placed in the same cupboard. She used to be very organized and dislikes clutter. She is on hormone replacement for post menopause. She sleeps ok wakes up several times during the night, wakes up at 1:30am, 2:30am, and 4:30am. She has some snoring and feels groggy during daytime.She listens to podcasts on autopsies prior to falling asleep. She eats a clean diet, green smoothies daily, and takes supplements, walks for 30 min on her treadmill. FH + Parkinsons maternal grandfather. PFSH Medical History Cognitive impairment Shoulder pain, left Family history of polyps in the colon Pre-op examination Colon cancer screening Cervical cancer screening Breast cancer screening Surgical History Hx of colonoscopy Family History Mother Lung cancer Father Skin cancer CVA (cerebral vascular accident) Sister No problems noted. Sister No problems noted. Sister Mental health disorder Daughter No problems noted. 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 Sexual orientation: Straight/Heterosexual Gender identity: Female Cognitive needs: No Hearing needs: No Vision needs: Yes (Glasses) Female Reproductive History Menstrual Age of Menarche: 12 Physical Exam Vital Signs: Last Vital Signs Pulse 61 09/05/25 09:04 BP 100/72 09/05/25 09:04 Pulse Ox 99 09/05/25 09:04 Oxygen Delivery Method Room Air 09/05/25 09:04 BMI result Body Mass Index 26.0 Const General: cooperative and anxious Nutritional Appearance: average body habitus Orientation/consciousness: patient oriented x3 HEENT Face and sinus: Yes face symmetric Teeth and gingiva: other (mallampti score of 3) Eyes Pupils: Equal, round and reactive pupils present Neck Neck: Yes full ROM Resp Effort & Inspection: normal respiratory effort and able to speak in complete sentences Neuro Other: oral/ tongue tremors mild upper extremity mild l>r. tremors lower extremity hypo reflexia Gait normal stride normal FFM normal General: patient oriented x3 and moves all extremities Cranial nerves: Yes Equal, round and reactive pupils present, Yes Normal accommodation reflex present, Yes Normal facial strength present, Yes Midline tongue present, Yes Ability to bilaterally rotate head present and Yes Ability to bilaterally elevate shoulders present Motor exam (neuro): 5/5 motor strength present throughout and Normal motor muscle tone present throughout Deep tendon reflexes (DTR's): Right triceps reflex intensity grade: 2+, Left triceps reflex intensity grade: 2+, Rt Biceps (C5, C6): 2+, Left biceps reflex intensity grade: 2+, Right brachioradialis reflex intensity grade: 2+, Left brachioradialis reflex intensity grade: 2+, Right patellar reflex intensity grade: 1+ and Left patellar reflex intensity grade: 1+ Coordination: [id number] test normal (tremors), does not sway with eyes open, Romberg test negative and rapid alternating movements of the distal upper extremity normal Psych Appearance: well kempt Speech and movement: Slowed speech present (Psych) Affect: Anxious affect present Attitude: cooperative Results Reviewed Results Reviewed: cognitive speech evaluation Assessment & Plan Assessment & Plan (1) Excessive daytime sleepiness: Code(s): G47.19 - Other hypersomnia Category: Medical (2) Stuttering: Code(s): F80.81 - Childhood onset fluency disorder Category: Medical (3) Cognitive and behavioral changes: Comment: demyelination MRI / falls/ MS? Code(s): R41.89 - Other symptoms and signs involving cognitive functions and awareness; R46.89 - Other symptoms and signs involving appearance and behavior Category: Medical (4) Memory impairment: Comment: MMSE 27/30 Code(s): R41.3 - Other amnesia Category: Medical Plan HST reschedule and is pending. Cognitive and behavioral changes on recent MRI brain with gadolinium to r/o structural causes- demyelinating pathologies. Visual Evoked Potential will reschedule, she now has a new rx for her glasses. Labs Checked Vit B12 is normal, take B6 is elevated, TSH,normal ESR /Vit D is low/ normal. Ferritin is low. Continue antidepressant therapy with a slow gradual therapy, to taper off of Sertraline due to S/E of medication, grogginess. Discussed the use of a different antidepressant if not interested in continuing Sertraline. F/u psyhcology psychiatry establish a therapeutic relationship with a therapist. [email or web address] therapy [email or web address]. Continue Magnesium 200-400mg po daily at bedtime. [place] 3s daily, walking and socialize with meaningful engaging activities. Start and continue Speech and hearing therapy for 8weeks F/U in 3 months or sooner. Orders: Orders Other Ref Test - [facility] [place] Today F02.80 - Dementia in other diseases classified elsewhere, unspecified severity, without behavioral disturbance, psychotic disturbance, mood disturbance, and anxiety, G30.9 - Alzheimer's disease, unspecified Patient Instructions: Sleep Hygiene provided: set a scheduled bedtime and wake time to help regulate the circadian rhythm and balance the release of pituitary hormones. Sleep in a dark room, temperatures below 68 degrees, and no devices n bed. Limit caffeinated products 6 hours prior to bed, and limit fluids 2-4 hours prior to bed. Gentle night yoga, diffusing essential oils, and playing soft music can be relaxing. Coding Level of Care Code Est Pt Level 4 (66374) Diagnoses Excessive daytime sleepiness G47.19 Stuttering F80.81 Cognitive and behavioral changes R41.89; R46.89 Memory impairment R41.3
== END 2025-09-05 10:11 | disposition home or self-care (01) ==
LOC: HO.HSMS 09:02
PROVIDERS: PCP Internal Medicine; Visit Provider Physician Assistant Medical
DX: G47.19 Other hypersomnia (principal); F80.81 Childhood onset fluency disorder; R41.89 Other symptoms and signs involving cognitive functions and awareness; R46.89 Other symptoms and signs involving appearance and behavior; R41.3 Other amnesia
CPT/HCPCS: 99214